=== PATIENT | male | born 1995 | race Caucasian/White ===

== ENCOUNTER 2017-09-09 00:30 | Emergency (ER) | payer BC, OTHER ==
[~2017-09-09] VITALS: Ht 180.3 cm; Wt 104.9 kg
[~2017-09-09 00:30] MED LIST: DOXY100C2 PO; HYDR-3419 PO
[2017-09-09 00:39] VITALS: TEMP 37; Ht 180.3 cm; Wt 104.9 kg
[2017-09-09] MEDS ORDERED: IBUPROFEN 600 MG TAB PO STA (00:51)
--- NOTE | 2017-09-09 01:38 | EMERGENCY ROOM VISIT NOTE ---
ED Visit Note First contact with patient: 00:47 CHIEF COMPLAINT: Wrist pain HISTORY OF PRESENT ILLNESS: This 21-year-old patient presents to the emergency department with family complaining of pain in the right wrist after opening a door and hearing a pop. The patient is able to move their wrist. The patient states the pain is mild and 3/10. No laceration, no weakness. No numbness or tingling. The patient denies any other injury. The patient is able to move their fingers and elbow without difficulty. The patient has not had a previous fracture to this wrist. The patient has taken nothing for the pain. Patient had prior surgery on his elbow and has had problems rotating his wrist for many years now. He follows with Dr. Nayak/Yunior. Patient states he did twist his wrist more than he has in quite sometime. REVIEW OF SYSTEMS: A 6 system review of systems was performed with positives and pertinent negatives in the HPI. ALLERGIES: None MEDICATIONS: None PMH: Orthopedic surgeries SOCIAL HISTORY: No drug use PHYSICAL EXAM: Vital Signs: Reviewed Nurse's notes, vital signs mildly hypertensive. GENERAL: Pleasant male, in no acute distress, but appears to be in pain, well-developed, well-neurished. NEURO: Alert and oriented to person place and time. Normal sensation to light and sharp touch. MUSCULOSKELETAL: There is no deformity of the right wrist. There is tenderness and edema over distal ulna. There is no snuff box tenderness. Range of motion is intact but painful. There is no tenderness of the elbow, hand or fingers. Arboriculturist strength 4/ 5. Radial pulse 2+. SKIN: Normal and intact. The hand is warm and well perfused with capillary refill less than 2 seconds. EMERGENCY DEPARTMENT COURSE: I examined the patient. An X-ray of the right wrist was reviewed by myself and my attending and showed no fracture but possible malalignment of the distal ulna and patient had prior fractures to this wrist and surgery. A cockup Velcro splint was placed under my direction and the position was satisfactory. Neurovascular status rechecked and intact. Patient was advised to follow-up with his orthopedic doctor in a few days or here in the ER sooner for severe pain, numbness, tingling, worsening signs or symptoms or as needed. The patient was discharged home in good condition. Differential diagnoses include sprain, strain, fracture, dislocation and other etiologies were considered. DIAGNOSIS: Right wrist injury DISCHARGE INSTRUCTIONS & TREATMENT: Your blood pressure was high today. Follow-up with family care for this. Ibuprofen(Motrin, Advil) may be used for fever or pain. Use 600mg every six hours as needed. Take with food. Avoid using more than 2400mg in a 24 hour period. Do not use 2400mg per day for more than three consecutive days without physician direction. Prolonged inappropriate use can lead to stomach upset or ulcers. This medication can be taken if you need to drive, work, or perform activities which may be dangerous when taking narcotic pain medication. (AND/OR) Acetaminophen(Tylenol) may be used for fever or pain. Use 1000mg every six hours as needed. Avoid using more than 3000mg in a 24 hour period. This medication can be taken if you need to drive, work, or perform activities which may be dangerous when taking narcotic pain medication. Ice compresses for 20 minutes at a time four times daily for 2-3 days. Rest and elevate your injury. Wear splint for comfort. Do not have it so tight that you cannot feel your fingers. Continue current medications. Return to the ER immediately for any numbness, tingling, severe pain, extreme swelling in the extremity or as needed. Call your Orthopedics on Sunday for your ongoing problems with your wrist to arrange follow up for your injury. Current/Historical Medications Scheduled Doxycycline Hyclate (Vibramycin), 100 MG PO BID Scheduled PRN Hydrocodon/Acetaminophen 5MG/300MG (Vicodin (5MG/300MG)), 1 TAB PO Q6 PRN Miscellaneous Medications None (Patient States No Home Meds) Allergies Coded Allergies: No Known Allergies (Unverified , 03/04/13) Vital Signs Date Time Temp Pulse Resp B/P (MAP) Pulse Ox O2 Delivery O2 Flow Rate FiO2 09/09/17 00:39 37.0 98 18 153/84 97 Room Air Medications Administered Medications (Trade) Dose Ordered Sig/Reuben Route Start Time Stop Time Status Last Admin Dose Admin Ibuprofen (Motrin Tab) 600 mg NOW STAT PO 09/09/17 00:51 09/09/17 00:53 DC 09/09/17 00:59 600 MG Departure Information Referrals Tim Davis MD (PCP) Patient Instructions [facility]
[2017-09-09] MEDS ORDERED: BUPRTAB51 PO (01:41)
[2017-09-09] MEDS ORDERED: AMPH10TA2 PO (01:42)
[2017-09-09] MEDS ORDERED: AMPH20TA2 PO (01:43)
[2017-09-09 01:47] VITALS: BP 151/88; PULSE 80; O2SAT 97
--- NOTE | 2017-09-09 08:17 | DIAGNOSTIC IMAGING REPORT ---
R WRIST MIN 3 VIEWS ROUTINE CLINICAL HISTORY: right wrist pain COMPARISON: None. DISCUSSION: No fractures or dislocations are visualized. The study is limited from a technical standpoint as the lateral views appear oblique. On one of the lateral views, the ulna projects dorsal to the distal radius. Clinical correlation will be necessary to exclude a distal radial ulnar subluxation IMPRESSION: 1. No acute fractures 2. Technically limited study from a positioning standpoint. On one of the lateral views, the ulna projects dorsal to the distal radius. Clinical correlation will be necessary to exclude a distal radial ulnar subluxation Electronically signed by: Raymon Zhu M.D. 09/09/2017 8:16 AM Dictated Date/Time: 09/09/2017 8:14 AM
[2017-12-24] MEDS ORDERED: NICO14DI5 TD (15:32)
[2017-12-24] MEDS ORDERED: ZYPODT5 PO (15:32)
[2017-12-24] MEDS ORDERED: [UNRECOGNIZED DRUG - CODE] PO (15:32)
== END 2017-09-09 01:48 | disposition home or self-care (01) ==
LOC: C.EDB 00:32
DX: S69.91XA Unspecified injury of right wrist, hand and finger(s), initial encounter (principal); X58.XXXA Exposure to other specified factors, initial encounter

== ENCOUNTER 2017-11-30 11:39 | Inpatient (IN) | payer BC ==
[~2017-11-30] VITALS: Ht 180.3 cm; Wt 89.9 kg
[~2017-11-30 11:39] MED LIST changes: +AMPH10TA2 PO; +AMPH20TA2 PO; +BUPRTAB51 PO; -DOXY100C2 PO; -HYDR-3419 PO
--- NOTE | 2017-11-30 13:05 | DIAGNOSTIC IMAGING REPORT ---
HEAD WITHOUT CONTRAST (CT) CLINICAL HISTORY: 22 years-old Male presenting with ams. TECHNIQUE: Multidetector CT imaging of the head was performed without the use of intravenous contrast. IV contrast: None. A dose lowering technique was used consistent with the principles of ALARA (as low as reasonably achievable). COMPARISON: None. CT DOSE (mGy.cm): The estimated cumulative dose is 537.48 mGy.cm. FINDINGS: Direct Customer Service Representative topogram: Unremarkable. Ventricles and sulci normal in size. Brain parenchyma normal in appearance with preserved brady-white differentiation. No mass effect or midline shift. No hemorrhage or acute territorial infarct. No extra-axial fluid collection. Paranasal sinuses and mastoid air cells clear. Calvarium intact. IMPRESSION: 1. No acute intracranial abnormality. Electronically signed by: Yuriy Camp M.D. 11/30/2017 1:03 PM Dictated Date/Time: 11/30/2017 1:01 PM
--- NOTE | 2017-11-30 13:16 | EMERGENCY ROOM VISIT NOTE ---
History Report prepared by Junior: Clotilde Arrieta Under the Supervision of: Dr. Brian Carrasco M.D. First contact with patient: 11:52 Chief Complaint: MENTAL HEALTH EVALUATION Stated Complaint: MENTAL EVALUATION History of Present Illness The patient is a 22 year old male who presents to the Emergency Room brought in by police with complaints of persistent general marge since this morning. The patient states that it is hard to put into words what has been going on. He states that he did not sleep all last night because he was studying for a [employer] test. He states that he did sleep well the night prior. He states that he confused the police and is unclear and is unable to definitively explain what caused him to come to the ED. He reports that he feels very good. He denies any thoughts of SI or HI. He notes auditory hallucinations. He notes there is ringing in his ears. He denies any visual hallucinations, though he states that he sees things differently than other people. He denies any nausea, vomiting, cough, congestion, chills, fevers, or diarrhea. He states that he smokes marijuana every day. He states that he smoked marijuana last night. He denies any alcohol use. He reports daily tobacco use. He denies any other illicit drug use. He regularly takes Adderall, though he has not taken it today. Per mother, the patient has been mildly depressed. She states that the patient started to self-diagnose himself with ADD about one year ago. She reports the patient was recreating his childhood and claiming that he did not have any friends. She notes that he had been doing well in school and has plenty of friends. She states the he tried to see as many psychiatrics in order to obtain drugs. She reports that he was then placed on Adderall in the spring. The mother believes the Adderall changed the patients demeanor. She states that her son became a totally different person and seemed angry, though he did take a summer course last year and was successful. 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 She notes he seemed to be well while there, though when he returned he became angrier. She states that he has not stopped taking the Adderall, even though he informed her that he would stop taking it prior to his epidemiology internship. She notes the patient decided to take a break from [employer] as a senior. The patient was recently evaluated at [facility], though he recently stopped going to school. The mother denies any family history of schizophrenia or bipolar disorder. Source of History: patient, parent Onset: since this morning Position: other (general) Quality: other (marge) Timing: other (persistent) Associated Symptoms: No fevers, No chills, No diarrhea Note: He notes loss of sleep. He notes auditory hallucinations and ringing in his ears. He denies any visual hallucinations SI or HI. He denies any congestion. Review of Systems See HPI for pertinent positives and negatives. A total of ten systems were reviewed and were otherwise negative. Past Medical & Surgical Medical Problems: (1) No Known Active Medical Problems Family History Cancer Diabetes mellitus Gallbladder disease Heart disease Hypertension Kidney stones Lung disease Seizures Social History Smoking Status: Current Every Day Smoker Alcohol Use: occasionally Drug Use: marijuana Marital Status: single Housing Status: lives with family Occupation Status: [employer] student Current/Historical Medications Scheduled Amphetamine-Dextroamphetamine 10MG (Adderall 10MG), 10 MG PO QAM Bupropion (Wellbutrin-Xl), 300 MG PO DAILY Allergies Coded Allergies: No Known Allergies (Unverified , 11/30/17) Physical Exam Vital Signs Date Time Temp Pulse Resp B/P (MAP) Pulse Ox O2 Delivery O2 Flow Rate FiO2 11/30/17 15:16 67 16 124/78 99 Room Air 11/30/17 13:04 78 18 148/85 98 Room Air 11/30/17 11:45 36.8 87 18 168/101 97 Room Air Physical Exam GENERAL: Awake, alert, confused, in no distress HENT: Normocephalic, atraumatic. Oropharynx unremarkable. EYES: Normal conjunctiva. Sclera non-icteric. NECK: Supple. No nuchal rigidity. FROM. No JVD. RESPIRATORY: Clear to auscultation. CARDIAC: Regular rate, normal rhythm. Extremities warm and well perfused. Pulses equal. ABDOMEN: Soft, non-distended. No tenderness to palpation. No rebound or guarding. No masses. RECTAL: Deferred. MUSCULOSKELETAL: Chest examination reveals no tenderness. The back is symmetrical on inspection without obvious abnormality. There is no CVA tenderness to palpation. No joint edema. LOWER EXTREMITIES: Calves are equal size bilaterally and non-tender. No edema. No discoloration. NEURO: Normal sensorium. No sensory or motor deficits noted. SKIN: No rash or jaundice noted. PSYCH: Incoherent speech, tangential thoughts. Denies SI or HI. Equivocal auditory and visual hallucinations. Medical Decision & Procedures ER Provider Diagnostic Interpretation: Radiology results as stated below per my review and radiologist interpretation: HEAD WITHOUT CONTRAST (CT) CLINICAL HISTORY: 22 years-old Male presenting with ams. TECHNIQUE: Multidetector CT imaging of the head was performed without the use of intravenous contrast. IV contrast: None. A dose lowering technique was used consistent with the principles of ALARA (as low as reasonably achievable). COMPARISON: None. CT DOSE (mGy.cm): The estimated cumulative dose is 537.48 mGy.cm. FINDINGS: Cellar Packer topogram: Unremarkable. Ventricles and sulci normal in size. Brain parenchyma normal in appearance with preserved brady-white differentiation. No mass effect or midline shift. No hemorrhage or acute territorial infarct. No extra-axial fluid collection. Paranasal sinuses and mastoid air cells clear. Calvarium intact. IMPRESSION: 1. No acute intracranial abnormality. Electronically signed by: Yuriy Camp M.D. 11/30/2017 1:03 PM Dictated Date/Time: 11/30/2017 1:01 PM Laboratory Results 11/30/17 13:08 Red Blood Count 5.29, Mean Corpuscular Volume 82.6, Mean Corpuscular Hemoglobin 30.1, Mean Corpuscular Hemoglobin Concent 36.4, Mean Platelet Volume 8.8, Neutrophils (%) (Auto) 73.7, Lymphocytes (%) (Auto) 17.4, Monocytes (%) (Auto) 8.1, Eosinophils (%) (Auto) 0.1, Basophils (%) (Auto) 0.3, Neutrophils # (Auto) 5.11, Lymphocytes # (Auto) 1.21, Monocytes # (Auto) 0.56, Eosinophils # (Auto) 0.01, Basophils # (Auto) 0.02 11/30/17 13:08 Test 11/30/17 12:19 11/30/17 12:20 11/30/17 13:08 Bedside Glucose 103 mg/dl (70-99) Urine Color YELLOW Urine Appearance CLEAR (CLEAR) Urine pH 7.5 (4.5-7.5) Urine Specific [place] 1.011 (1.000-1.030) Urine Protein NEG (NEG) Urine Glucose (UA) NEG (NEG) Urine Ketones 1+ (NEG) Urine Occult Blood NEG (NEG) Urine Nitrite NEG (NEG) Urine Bilirubin NEG (NEG) Urine Urobilinogen NEG (NEG) Urine Leukocyte Esterase NEG (NEG) Urine Opiates Screen NEG (NEG) Urine Methadone, Qualitative NEG (NEG) Urine Barbiturates NEG (NEG) Urine Phencyclidine (PCP) Level NEG (NEG) Ur Amphetamine/Methamphetamine NEG (NEG) MDMA (Ecstasy) Screen POS (NEG) Urine Benzodiazepines Screen NEG (NEG) Urine Cocaine Metabolite NEG (NEG) Urine Marijuana (THC) POS (NEG) White Blood Count 6.94 K/uL (4.8-10.8) Red Blood Count 5.29 M/uL (4.7-6.1) Hemoglobin 15.9 g/dL (14.0-18.0) Hematocrit 43.7 % (42-52) Mean Corpuscular Volume 82.6 fL (80-100) Mean Corpuscular Hemoglobin 30.1 pg (25-34) Mean Corpuscular Hemoglobin Concent 36.4 g/dl (32-36) Platelet Count 255 K/uL (130-400) Mean Platelet Volume 8.8 fL (7.4-10.4) Neutrophils (%) (Auto) 73.7 % Lymphocytes (%) (Auto) 17.4 % Monocytes (%) (Auto) 8.1 % Eosinophils (%) (Auto) 0.1 % Basophils (%) (Auto) 0.3 % Neutrophils # (Auto) 5.11 K/uL (1.4-6.5) Lymphocytes # (Auto) 1.21 K/uL (1.2-3.4) Monocytes # (Auto) 0.56 K/uL (0.11-0.59) Eosinophils # (Auto) 0.01 K/uL (0-0.5) Basophils # (Auto) 0.02 K/uL (0-0.2) RDW Standard Deviation 37.7 fL (36.4-46.3) RDW Coefficient of Variation 12.6 % (11.5-14.5) Immature Granulocyte % (Auto) 0.4 % Immature Granulocyte # (Auto) 0.03 K/uL (0.00-0.02) Anion Gap 9.0 mmol/L (3-11) Est Creatinine Clear Calc Drug Dose 136.2 ml/min Estimated GFR () 123.3 Estimated GFR (Non- 106.4 BUN/Creatinine Ratio 6.8 (10-20) Calcium Level 9.5 mg/dl (8.5-10.1) Total Bilirubin 0.5 mg/dl (0.2-1) Direct Bilirubin 0.1 mg/dl (0-0.2) Aspartate Amino Transf (AST/SGOT) 16 U/L (15-37) Alanine Aminotransferase (ALT/SGPT) 25 U/L (12-78) Alkaline Phosphatase 57 U/L (45-117) Total Protein 8.0 gm/dl (6.4-8.2) Albumin 4.8 gm/dl (3.4-5.0) Globulin 3.2 gm/dl (2.5-4.0) Albumin/Globulin Ratio 1.5 (0.9-2) Thyroid Stimulating Hormone (TSH) 0.745 uIu/ml (0.300-4.500) Ethyl Alcohol mg/dL < 3.0 mg/dl (0-3) Laboratory results reviewed by me ECG Per My Interpretation Indication: other (marge) Rate (beats per minute): 78 Rhythm: normal sinus Findings: no acute ischemic change, other (Normal axis) ED Course 1155: The patient was evaluated in room A6. A complete history and physical exam was performed. 1531: I spoke with Mora, Psychiatric Financial Director. She is requesting a synthetic laboratory workup. 1600: The patient was accepted to [facility]. Medical Decision I reviewed the patient's past medical history, medications, and the nursing notes as described above. Differential diagnosis: Etiologies such as mood disorder, infection, hypoglycemia, electrolyte abnormalities, cardiac sources, intracerebral event, toxicologic, neurologic, as well as others were entertained. The patient is a 22 y/o gentleman with a ?PMHX of ADHD on adderall who presents to the emergency department with worsening confusion and bizarre behavior that culminated today when taking a test at [facility] per HPI. On arrival the patient is cooperative in NAD, AFVSS. On exam the patient exhibits incoherent speech where he is unable to complete an idea. Denies SI/HI but is equivocal when ask if he has auditory or visual hallucinations. Per patient and mother the patient has no prior episodes like this in the past although he has had evolving sx over the past several weeks. The patient reports smoking marijuana regularly but denies any other drug use. Labs unremarkable. CT head negative. Patient medically cleared. I explained our concern to the patient that is confusion is so severe that I am concerned for his ability to safely function. Patient is agreeable for voluntary admission. 201 signed. Patient admitted to for further evaluation and management of apparent new onset marge. Medication Reconcilliation Current Medication List: was personally reviewed by me Blood Pressure Screening Patient's blood pressure: Elevated blood pressure Blood pressure disposition: Elevated BP felt to be situational Impression Primary Impression: Marge Scribe Attestation The scribe's documentation has been prepared under my direction and personally reviewed by me in its entirety. I confirm that the note above accurately reflects all work, treatment, procedures, and medical decision making performed by me. Departure Information Dispostion [facility] Acute Care ([facility]) Referrals No Doctor, Assigned (PCP) Patient Instructions [facility]
[2017-11-30 13:22] LABS: BASO % 0.3 %; BASO ABS # 0.02 K/uL (0-0.2); EOS % 0.1 %; EOS ABS # 0.01 K/uL (0-0.5); HEMATOCRIT 43.7 % (42-52); HEMOGLOBIN 15.9 g/dL (14.0-18.0); IG# 0.03 K/uL (0.00-0.02); LYMPH % 17.4 %; LYMPH ABS # 1.21 K/uL (1.2-3.4); MEAN CELL VOLUME 82.6 fL (80-100); MEAN CORPUSCULAR HEMOGLOBIN 30.1 pg (25-34); MEAN CORPUSCULAR HGB CONC 36.4 g/dl (32-36); MEAN PLATELET VOLUME 8.8 fL (7.4-10.4); MONO % 8.1 %; MONO ABS # 0.56 K/uL (0.11-0.59); NEUT % 73.7 %; NEUT ABS # 5.11 K/uL (1.4-6.5); PLATELET COUNT 255 K/uL (130-400); RED CELL DISTRIBUTION WIDTH CV 12.6 % (11.5-14.5); RED CELL DISTRIBUTION WIDTH SD 37.7 fL (36.4-46.3); WHITE BLOOD COUNT 6.94 K/uL (4.8-10.8)
[2017-11-30 13:40] LABS: ALBUMIN 4.8 gm/dl (3.4-5.0); CALCIUM 9.5 mg/dl (8.5-10.1); POTASSIUM 3.5 mmol/L (3.5-5.1)
[2017-11-30 15:45] VITALS: O2SAT 99
[2017-11-30 16:12] VITALS: BP 124/78; PULSE 67; TEMP 36.8; BMI 29.1
[2017-11-30] MEDS ORDERED: ALUMINUM/MAGNESIUM SUSP 30 ML UDC PO PRN (16:15)
[2017-11-30] MEDS ORDERED: hydrOXYzine HCL 25 MG TAB PO PRN ×2 (16:15)
[2017-11-30] MEDS ORDERED: BISMUTH SUBSALICYLATE PER ML OMNICELL CHARGE PO PRN (16:15)
[2017-11-30] MEDS ORDERED: SODIUM CHLORIDE 0.65% NA SOLN 45 ML (OCEAN) PRN (16:15)
[2017-11-30] MEDS ORDERED: MAGNESIUM HYDROXIDE SUSP 30 ML UDC PO PRN (16:15)
[2017-11-30] MEDS ORDERED: ACETAMINOPHEN 325 MG TAB PO PRN (16:15)
[2017-11-30] MEDS: NICOTINE 14 MG/24 HR TDSY TD SCH (17:00)
[2017-11-30] MEDS ORDERED: HALOPERIDOL 5 MG TAB PO PRN (18:15)
[2017-11-30] MEDS ORDERED: BENZTROPINE MESYLATE 0.5 MG TAB PO PRN (18:15)
[2017-11-30] MEDS ORDERED: RISPERIDONE 1 MG TAB PO ONE (22:00)
[2017-12-01 06:55] VITALS: BP_SYST 114; BP_SYST 137; BP_DIAS 64; BP_DIAS 81; PULSE 49; PULSE 52; TEMP 36.5
[2017-12-01 06:57] VITALS: Ht 180.3 cm; Wt 89.9 kg
[2017-12-01] MEDS: NICOTINE 14 MG/24 HR TDSY TD SCH (08:49)
--- NOTE | 2017-12-01 11:32 | Psychiatric Consultation ---
Consultation Date of Consultation Dec 01, 2017. Identifying Data Patient is a 22 year old white male admitted on a 201 voluntary commitment for psychiatric evaluation and treatment of acute onset citlalli, mental confusion and hallucinations. Chief Complaint I guess I was manic, I know I was manic". History of Present Illness Patient is a 22 year old white male admitted on a 201 voluntary commitment from the ED after an acute onset of citlalli, mental confusion and auditory hallucinations with complaints of ringing in the ears x several hours. Patient reports that prior to admission he had not slept for 24 hours and was feeling anxious and manic about taking a test at on Sunday11/30/17 at [facility]. When he arrived at the site, his anxiety escalated when he realized the site was at a local school. He reports feeling panicky and found a transit police officer on site. He was then transported cooperatively to the ED. He denies being under the influence of drugs or Alcohol at the time of admission. He states he last used his Adderall 10 mg x 1 was on 11/29/16. The patient reports prior to admission having depression and anxiety since childhood but never sought treatment until he recently saw [facility] and also [facility] for OP treatment. He states having intermittent prior episodes of citlalli in the past but mainly experiences feelings of anger and irritability that manifests as sarcasm and arrogance especially with regards to interpersonal relationships and mainly his parents. Prior to admission, he denied feelings of anhedonia, anergia or being down, depressed or hopeless but admits to feeling manic, racing thoughts - questioning himself repeatedly and ruminating about decisions. He states he began to feel paranoid and untrusting of his own decision making skills. 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 . He denies visual hallucinations. He also reports daily chronic feelings of being anxious, restless and on edge. He reports feeling pressure from his parents to do well which aggravates his symptoms of anger. He admits to past fleeting passive suicidal ideation when under pressure from his parents but denies plan or intent. Currently, he denies SI/HI plan or intent but admits to short lived trial of SIB in the 8th grade when running around a group of kids who did it. He reports self diagnosis of ADD and admits to using his Adderall prescription inappropriately approximately 1.5 - 2 weeks prior to admission taking 30 mg a day. He states he typically would 10 mg a day but when having projects due he would use 10 mg in am and 20 mg in pm. He admits to "bad issues " with alcohol in high school reporting that he drank a lot to try to calm down his anger but realized it only made him angrier. Currently he admits to drinking a beer every on occasion and not often. He admits to chronic 3x/day cannabis use reporting this really helps to calm him and aids in anger control. Past Psychiatric History Current OP Treatment: psychiatrist, therapist Prior Psych Hospitalizations: none Access to a Gun: No Suicide Attempts: No Past Medical/Surgical History History of Concussion/Seizure: No Allergies Allergies: Coded Allergies: No Known Allergies (Unverified , 11/30/17) Home Medications Scheduled Amphetamine-Dextroamphetamine 10MG (Adderall 10MG), 10 MG PO QAM Bupropion (Wellbutrin-Xl), 300 MG PO DAILY Family History Cancer Diabetes mellitus Gallbladder disease Heart disease Hypertension Kidney stones Lung disease Seizures History of Suicide: No History of Substance Abuse: No Psychiatric History: No Alcohol Use Alcohol Use In Past 12 Months: Yes (one beer rarely) Smoking Use Smoking Status: Current Every Day Smoker Substance History Cannabis use 3x a day Personal History Lives in: [place], [place] Education: started college ([employer] senior - withdrew 11/04) Work History: none Relationship History: never Legal History: none Psychological Trauma History: Denies Hx Traumatic Event Review of Systems Psych: denies symptoms other than stated above Constitutional: denied Cardiovascular: denied GI: denied Neurologic: denied Remainder of 10 body systems also reviewed and denied other than noted above. Examination Vital Signs Vital Signs Past 12 Hours Date Time Temp Pulse Resp B/P (MAP) Pulse Ox O2 Delivery O2 Flow Rate FiO2 12/01/17 06:55 36.5 49 16 114/64 52 137/81 Laboratory Results Last 24 Hours Test 11/30/17 12:19 11/30/17 12:20 11/30/17 13:08 Bedside Glucose 103 mg/dl Urine Color YELLOW Urine Appearance CLEAR Urine pH 7.5 Urine Specific [place] 1.011 Urine Protein NEG Urine Glucose (UA) NEG Urine Ketones 1+ Urine Occult Blood NEG Urine Nitrite NEG Urine Bilirubin NEG Urine Urobilinogen NEG Urine Leukocyte Esterase NEG Urine Opiates Screen NEG Urine Methadone, Qualitative NEG Urine Barbiturates NEG Urine Phencyclidine (PCP) Level NEG Ur Amphetamine/Methamphetamine NEG MDMA (Ecstasy) Screen POS Urine Benzodiazepines Screen NEG Urine Cocaine Metabolite NEG Urine Marijuana (THC) POS White Blood Count 6.94 K/uL Red Blood Count 5.29 M/uL Hemoglobin 15.9 g/dL Hematocrit 43.7 % Mean Corpuscular Volume 82.6 fL Mean Corpuscular Hemoglobin 30.1 pg Mean Corpuscular Hemoglobin Concent 36.4 g/dl Platelet Count 255 K/uL Mean Platelet Volume 8.8 fL Neutrophils (%) (Auto) 73.7 % Lymphocytes (%) (Auto) 17.4 % Monocytes (%) (Auto) 8.1 % Eosinophils (%) (Auto) 0.1 % Basophils (%) (Auto) 0.3 % Neutrophils # (Auto) 5.11 K/uL Lymphocytes # (Auto) 1.21 K/uL Monocytes # (Auto) 0.56 K/uL Eosinophils # (Auto) 0.01 K/uL Basophils # (Auto) 0.02 K/uL RDW Standard Deviation 37.7 fL RDW Coefficient of Variation 12.6 % Immature Granulocyte % (Auto) 0.4 % Immature Granulocyte # (Auto) 0.03 K/uL Sodium Level 138 mmol/L Potassium Level 3.5 mmol/L Chloride Level 106 mmol/L Carbon Dioxide Level 23 mmol/L Anion Gap 9.0 mmol/L Blood Urea Nitrogen 7 mg/dl Creatinine 1.00 mg/dl Est Creatinine Clear Calc Drug Dose 136.2 ml/min Estimated GFR () 123.3 Estimated GFR (Non- 106.4 BUN/Creatinine Ratio 6.8 Random Glucose 91 mg/dl Calcium Level 9.5 mg/dl Total Bilirubin 0.5 mg/dl Direct Bilirubin 0.1 mg/dl Aspartate Amino Transf (AST/SGOT) 16 U/L Alanine Aminotransferase (ALT/SGPT) 25 U/L Alkaline Phosphatase 57 U/L Total Protein 8.0 gm/dl Albumin 4.8 gm/dl Globulin 3.2 gm/dl Albumin/Globulin Ratio 1.5 Thyroid Stimulating Hormone (TSH) 0.745 uIu/ml Ethyl Alcohol mg/dL < 3.0 mg/dl Mental Examination During interview pt is: alert and oriented, cooperative Appearance: appropriately dressed, appropriately groomed Eye contact is: good Motor behavior is: steady gait & station Speech: normal in rate, rhythm & volume Affect: anxious Mood is: anxious, other (heightened) Thought process: clear, coherent Thought content: reality based without delusions Suicidal thought are: denied, Plan: denied, Intent: denied Homicidal thoughts are: denied, Plan: denied, Intent: denied Hallucinations: denies auditory, denies visual Cognition: memory grossly intact, attention grossly intact, language grossly intact Intelligence estimated to be: consistent with level of education Insight: limited Judgement: limited Impression / Recommendations Impression The patient is a 22 year old male admitted on a 201 voluntary commitment from the ED after presenting with symptoms of citlalli, auditory hallucinations and mental confusion. The patient has a reported history of ADD and Depression and has been under the care of a therapist and a psychiatrist who prescribes him Wellbutrin and Adderall. The patient reports history of alcohol misuse high school and more recently he admits to taking more stimulants than typical prior to admission. Inventory Assets Strengths: smart and quick thinker Needs: future goal direction, family support,income Risk Factors Assessment Male: Yes /single/: No Higher / Fall in social status: No Access to guns: No Mental Health Diagnoses: Yes (Treated as OP for ADD and Depression) Substance use disorders: No Previous attempt: No Previous psychiatric stay: No Hopelessness: No Smoker: Yes Protective Factors Assessment Advent beliefs: No : No Responsible for young children: No Employed: No Stable relationships: No Supportive family: No Good rapport with provider: Yes Absence of risk factors above: No Recommendations (1) Citlalli 12/01/17 - Bipolar 1 Disorder single episode manic with psychotic features - Mood stabilizer is indicated. Risperdal 1mg at HS. Discussed with the patient the risks/benefits/alternative treatments were reviewed re: Risperdal for mood and/or psychosis. Discussion included but was not limited to metabolic side effects, risks of TD and suicidal thoughts. Baseline AIMS=0. Baseline metabolic labs were ordered. - Hold Adderall and Wellbutrin - encourage group therapy participation targeting coping mechanisms for stress and issues with alcohol, cannabis and stimulant misuse - recommend as OP Quotient testing for definitive ADHD diagnosis - meet with licensed master social worker for safety plan discussion - family meeting encouraged (2) Cannabis abuse - Advise patient to discontinue use - Encourage group participation to help patient learn other ways to cope with stress.
--- NOTE | 2017-12-01 12:30 | Psychiatric History & Physical ---
History Date of Service Dec 01, 2017. Identifying Data Patient is a 22 year old white male admitted on 11/30/17 on a 201 voluntary commitment for psychiatric evaluation and treatment of acute onset marge, mental confusion and hallucinations. Chief Complaint "It was amazing that I could mentally configure all that". History of Present Illness Per JAE Banks-- The patient reports that prior to admission he had not slept for 24 hours and was feeling anxious and manic about taking a test at on Sunday11/30/17 at [facility]. When he arrived at the site, his anxiety escalated when he realized the site was at a local school. He reports feeling panicky and found a program officer on site. He was then transported cooperatively to the ED. He denies being under the influence of drugs or Alcohol at the time of admission. He states he last used his Adderall 10 mg x 1 was on . The patient reports prior to admission having depression and anxiety since childhood but never sought treatment until he recently saw [facility] and also [facility] for OP treatment. He states having intermittent prior episodes of marge in the past but mainly experiences feelings of anger and irritability that manifests as sarcasm and arrogance especially with regards to interpersonal relationships and mainly his parents. Prior to admission, he denied feelings of anhedonia, anergia or being down, depressed or hopeless but admits to feeling manic, racing thoughts - questioning himself repeatedly and ruminating about decisions. He states he began to feel paranoid and untrusting of his own decision making skills. 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 . He denies visual hallucinations. He also reports daily chronic feelings of being anxious, restless and on edge. He reports feeling pressure from his parents to do well which aggravates his symptoms of anger. He admits to past fleeting passive suicidal ideation when under pressure from his parents but denies plan or intent. Currently, he denies SI/HI plan or intent but admits to short lived trial of SIB in the 8th grade when running around a group of kids who did it. He reports self diagnosis of ADD and admits to using his Adderall prescription inappropriately approximately 1.5 - 2 weeks prior to admission taking 30 mg a day. He states he typically would 10 mg a day but when having projects due he would use 10 mg in am and 20 mg in pm. He admits to "bad issues " with alcohol in high school reporting that he drank a lot to try to calm down his anger but realized it only made him angrier. Currently he admits to drinking a beer every on occasion and not often. He admits to chronic 3x/day cannabis use reporting this really helps to calm him and aids in anger control. The patient received and tolerated 1 dose of Risperdal last night. He states he feels his thoughts are more organized today and he thinks his mood is " coming down" in that previously he felt everything was "getting better and better" and even his handwriting was becoming perfect. He doesn't have much recollection of what happened at [facility] and doesn't relate in any way to his use of MJ. Past Psychiatric History Current OP Treatment: psychiatrist (Dr. Reece Escobar 01/01 to present, last appt 11/03), therapist (at [facility] until he withdrew from [facility] Prior OP Treatment: no prior treatment Prior Psych Hospitalizations: none Access to a Gun: No Suicide Attempts: No Past Medical/Surgical History History of Concussion/Seizure: No Allergies Allergies: Coded Allergies: No Known Allergies (Unverified , 11/30/17) Home Medications Scheduled Amphetamine-Dextroamphetamine 10MG (Adderall 10MG), 10 MG PO QAM Bupropion (Wellbutrin-Xl), 300 MG PO DAILY Family History Cancer Diabetes mellitus Gallbladder disease Heart disease Hypertension Kidney stones Lung disease Seizures History of Suicide: No History of Substance Abuse: No Psychiatric History: No Alcohol Use Alcohol Use In Past 12 Months: Yes (one beer rarely) AUDIT Total Score: 0 Smoking Use Smoking Status: Current Every Day Smoker Substance History regular MJ, denies abuse of Adderall but admitted to taking up to 30 mg daily ( more than prescribed) occasionally if has a lot of studying to do. Personal History Lives in: [place], [place] Childhood: older brother, younger sister Education: started college ([employer] senior - withdrew 11/04) Relationship History: never Children: noned Legal History: none Psychological Trauma History: Denies Hx Traumatic Event Review of Systems Psych: denies symptoms other than stated above Constitutional: denied Cardiovascular: denied GI: denied Neurologic: denied Remainder of 10 body systems also reviewed and denied other than noted above. Examination Physical Examination A physical exam was performed in the ER prior to admission to the unit by Dr. Carrasco. I accept that physical as correct/medical clearance for the inpatient physical exam. Vital Signs Vital Signs Past 12 Hours Date Time Temp Pulse Resp B/P (MAP) Pulse Ox O2 Delivery O2 Flow Rate FiO2 12/01/17 06:55 36.5 49 16 114/64 52 137/81 Laboratory Results Last 24 Hours Test 11/30/17 12:19 11/30/17 12:20 11/30/17 13:08 Bedside Glucose 103 mg/dl Urine Color YELLOW Urine Appearance CLEAR Urine pH 7.5 Urine Specific [place] 1.011 Urine Protein NEG Urine Glucose (UA) NEG Urine Ketones 1+ Urine Occult Blood NEG Urine Nitrite NEG Urine Bilirubin NEG Urine Urobilinogen NEG Urine Leukocyte Esterase NEG Urine Opiates Screen NEG Urine Methadone, Qualitative NEG Urine Barbiturates NEG Urine Phencyclidine (PCP) Level NEG Ur Amphetamine/Methamphetamine NEG MDMA (Ecstasy) Screen POS Urine Benzodiazepines Screen NEG Urine Cocaine Metabolite NEG Urine Marijuana (THC) POS White Blood Count 6.94 K/uL Red Blood Count 5.29 M/uL Hemoglobin 15.9 g/dL Hematocrit 43.7 % Mean Corpuscular Volume 82.6 fL Mean Corpuscular Hemoglobin 30.1 pg Mean Corpuscular Hemoglobin Concent 36.4 g/dl Platelet Count 255 K/uL Mean Platelet Volume 8.8 fL Neutrophils (%) (Auto) 73.7 % Lymphocytes (%) (Auto) 17.4 % Monocytes (%) (Auto) 8.1 % Eosinophils (%) (Auto) 0.1 % Basophils (%) (Auto) 0.3 % Neutrophils # (Auto) 5.11 K/uL Lymphocytes # (Auto) 1.21 K/uL Monocytes # (Auto) 0.56 K/uL Eosinophils # (Auto) 0.01 K/uL Basophils # (Auto) 0.02 K/uL RDW Standard Deviation 37.7 fL RDW Coefficient of Variation 12.6 % Immature Granulocyte % (Auto) 0.4 % Immature Granulocyte # (Auto) 0.03 K/uL Sodium Level 138 mmol/L Potassium Level 3.5 mmol/L Chloride Level 106 mmol/L Carbon Dioxide Level 23 mmol/L Anion Gap 9.0 mmol/L Blood Urea Nitrogen 7 mg/dl Creatinine 1.00 mg/dl Est Creatinine Clear Calc Drug Dose 136.2 ml/min Estimated GFR () 123.3 Estimated GFR (Non- 106.4 BUN/Creatinine Ratio 6.8 Random Glucose 91 mg/dl Calcium Level 9.5 mg/dl Total Bilirubin 0.5 mg/dl Direct Bilirubin 0.1 mg/dl Aspartate Amino Transf (AST/SGOT) 16 U/L Alanine Aminotransferase (ALT/SGPT) 25 U/L Alkaline Phosphatase 57 U/L Total Protein 8.0 gm/dl Albumin 4.8 gm/dl Globulin 3.2 gm/dl Albumin/Globulin Ratio 1.5 Thyroid Stimulating Hormone (TSH) 0.745 uIu/ml Ethyl Alcohol mg/dL < 3.0 mg/dl Mental Examination During interview pt is: alert and oriented, cooperative Appearance: appropriately dressed, appropriately groomed Eye contact is: good Motor behavior is: steady gait & station Speech: other (hyperverbal) Affect: mood congruent Mood is: other (elevated) Thought process: circumstantial Thought content: reality based without delusions Suicidal thought are: denied, Plan: denied, Intent: denied Homicidal thoughts are: denied, Plan: denied, Intent: denied Hallucinations: denies auditory, denies visual Cognition: memory grossly intact, language grossly intact, other (decreased attention) Intelligence estimated to be: consistent with level of education Insight: limited Judgement: limited Impression / Recommendations Impression The patient is a 22 year old male admitted on a 201 voluntary commitment from the ED for 1 week of manic symptoms with thought disorganization and grandiosity. Patient tested negative for amphetmines and denies abuse of Adderall. He describes past periods of irritability associated with decreased sleep. He uses MJ regularly. Wellbutrin and Adderall were held on admission. Inventory Assets Strengths: smart and quick thinker Needs: future goal direction, family support,income Risk Factors Assessment Male: Yes /single/: No Higher / Fall in social status: No Access to guns: No Mental Health Diagnoses: Yes Substance use disorders: No Previous attempt: No Previous psychiatric stay: No Hopelessness: No Smoker: Yes Protective Factors Assessment Worship beliefs: No : No Responsible for young children: No Employed: No Stable relationships: No Supportive family: No Good rapport with provider: Yes Absence of risk factors above: No Recommendations (1) Marge As per JAE Banks---12/01/17 - Bipolar 1 Disorder single episode manic with psychotic features - Mood stabilizer is indicated. Risperdal 1mg at HS. Discussed with the patient the risks/benefits/alternative treatments were reviewed re: Risperdal for mood and/or psychosis. Discussion included but was not limited to metabolic side effects, risks of TD and suicidal thoughts. Baseline AIMS=0. Baseline metabolic labs were ordered. - Hold Adderall and Wellbutrin - encourage group therapy participation targeting coping mechanisms for stress and issues with alcohol, cannabis and stimulant misuse - recommend as OP Quotient testing for definitive ADHD diagnosis - meet with director social service for safety plan discussion - family meeting encouraged -suspect stimulant misuse, will engage family to help with pill counts and check against last fill per PDMP. (2) Cannabis abuse - Advise patient to discontinue use - Encourage group participation to help patient learn other ways to cope with stress. Dr. South attempted 5+ min brief intervention on 12/01/17. He remains in precontemplation stage with regards to change. Impact of use on mood disorder reviewed. He is agreeable to resume outpatient therapy to address mood disorder and use. (3) Nicotine abuse The patient is a current smoker but does not want to quit and declines brief intervention for tobacco cessation. Accepted nicotine replacement patch. CPT Code Initial Hospital Care: [id number]
[2017-12-01] MEDS ORDERED: LORAZEPAM 2 MG TAB ONE (21:13)
[2017-12-01] MEDS ORDERED: NURSING VERBAL MED ORDER ONE (21:15)
[2017-12-01] MEDS ORDERED: HALOPERIDOL 5 MG TAB PO STA (21:19)
[2017-12-01] MEDS ORDERED: RISPERIDONE 1 MG TAB PO SCH (22:00)
[2017-12-02 06:52] VITALS: BP_SYST 128; BP_SYST 143; BP_DIAS 73; BP_DIAS 77; PULSE 58; PULSE 73; TEMP 36.9
[2017-12-02] MEDS: NICOTINE 14 MG/24 HR TDSY TD SCH (10:15)
[2017-12-02] MEDS: RISPERIDONE ODT 1MG PO SCH ×2 (10:15→21:02)
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
[2017-12-03 06:51] VITALS: BP_SYST 127; BP_SYST 137; BP_DIAS 70; BP_DIAS 77; PULSE 112; PULSE 59; TEMP 36.9
[2017-12-03] MEDS: NICOTINE 14 MG/24 HR TDSY TD SCH (09:15)
[2017-12-03] MEDS: RISPERIDONE ODT 1MG PO SCH ×2 (09:16→21:59)
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
--- NOTE | 2017-12-03 11:06 | Psychiatric Progress Notes ---
Progress Note Date of Service Dec 03, 2017. Interval History Patient is a 22 year old white male admitted on 11/30/17 on a 201 voluntary commitment for psychiatric evaluation and treatment of acute onset marge. He had not slept in preparation to take the [employer] computerized test but was noted to be disorganized at [facility] so police were notified according to safety protocol. Chief Complaint "I guess I was just acting kind of strange, I was getting confused, my computer was kind of messing with me ". Subjective Patient was seen & assessed interval progress reviewed with Treatment Team. Staff report the patient has been disorganized in his behavior, taking other patient's food and drinks, and going into a female peer's room. He has been taking risperidone as ordered, and received a 0.5 mg dose of benztropine yesterday for restlessness, which was helpful. He utilized the safe room yesterday due to erratic behavior and disorganization, and was responsive to staff redirection. He had a good visit with his siblings and father. He attended community meeting yesterday, stated his mood was a 9 out of 10 and his mood was "interconnected." He said his goal of treatment was to help his father more. On my assessment today, the patient states that he has racing thoughts, and describes his mood is "pretty wavy, it was great the first morning..." He will start to answer questions with related information, but quickly goes off topic. He is able to state that he was hospitalized for bizarre behavior, which he relates to noticing that his computer was "messing with me." He says he noticed his computer was "showing different information, bringing up results I wouldn't have expected, webpages I had visited did not look the same." He states that this is "kind of sweet, scary, but very interesting. Computers take us from reality, and bring us back to it." He thinks that someone put spyware on his computer and was logging his activity " to help me see from a different perspective, so I would not be so shortsighted. " He is not sure who would go to these lengths to teach him a lesson, stating "there is a lot of people who could be behind it, it is too big for me to comprehend." He says that he ended up staying up all night just prior to admission as he was involved with his computer, and says he was scheduled to take a test the next day, saying he "scheduled this test to get people off my back, then got distracted with my computer, ended up staying up all night, I knew I needed to do something but did not know why but just knew it was something they needed to do." When asked to clarify this, he says that he "needed to bust my brother, scare him maybe, take care of him may be, watch over him or something." He says he went to his brother's room and open a box of broad head arrow tips, and relates this to a, and his brother made that it would be a good place to high drugs. He found a cylindrical vial of a wax substance, which he said "looks like an ass hole, it was supposed to represent cocaine in this scenario." He says he took the vial and put it in his pocket, and then "intentionally flagged down an officer, but did not know what to tell him, because I did not want to get my brother in trouble." He says he was trying to explain this to the officer, who became confused, alerted other officers, and ultimately the police brought him to the emergency room. He says that he thinks his diagnosis is "some type of Asperger's, do not think I am OCD , probably just depression." We discussed his current diagnosis of a manic episode, and gave him a handout about bipolar disorder. He is not sure that he has bipolar, as "my aunt I think said it is overdiagnosed." He does feel that his medications are helping him, and feels safe here in the hospital. He denies suicidal thoughts and thoughts of harming others. He continues to believe that other people are connected to him in unusual ways even here in the hospital, stating that a male peer on the unit is "reflecting my feelings, acting the way he thinks I feel, I look at him and it helps me see how I feel, so that has been helpful." He states that he found a tab of LSD in his jeans pocket on Sunday, and thinks that somebody "planted it there," which he says is scary. He says he gave it to his mother, because "I can trust her, she is discrete." Sleep Information Total Hours of Sleep: 7.75 Meal Information Percent of Breakfast Consumed: 100 Percent of Lunch Consumed: 100 Percent of Dinner Consumed: 100 Mental Status Exam During interview pt is: alert and oriented, cooperative Appearance: appropriately dressed, appropriately groomed Eye contact is: good Motor behavior is: steady gait & station, other (Mild restlessness, shifting in his chair frequently) Speech: other (hyperverbal, rapid rate) Affect: mood congruent, other (Expansive) Mood is: other ("Pretty wavy, it was great the first morning") Thought process: tangential, flight of ideas, looseness of associations Thought content: cognitive distortions, delusions, ideas of reference Suicidal thought are: denied Homicidal thoughts are: denied Hallucinations: denies auditory, denies visual Cognition: language grossly intact, other (impaired attention and memory) Intelligence estimated to be: consistent with level of education Insight: impaired Judgement: impaired Impression The patient is a 22 year old male admitted on a 201 voluntary commitment from the ED for 1 week of manic symptoms with thought disorganization and grandiosity. Patient tested negative for amphetamines Adderall, although it is prescribed by his outpatient psychiatrist for ADHD, and reports taking higher doses than prescribed to study at times. He uses MJ regularly, and has used LSD and cocaine in the past couple of months, exact timeline uncertain. Wellbutrin and Adderall were held on admission. He has been started on risperidone and placed in a private room due to intrusive behavior with peers. He requires inpatient treatment due to the severity of his manic and psychotic symptoms and inability to care for himself outside of the hospital. Plan (1) Bipolar 1 disorder As per JAE Banks---12/01/17 - Bipolar 1 Disorder single episode manic with psychotic features - Mood stabilizer is indicated. Risperdal 1mg at HS. Discussed with the patient the risks/benefits/alternative treatments were reviewed re: Risperdal for mood and/or psychosis. Discussion included but was not limited to metabolic side effects, risks of TD and suicidal thoughts. Baseline AIMS=0. Baseline metabolic labs were ordered. - Hold Adderall and Wellbutrin - encourage group therapy participation targeting coping mechanisms for stress and issues with alcohol, cannabis and stimulant misuse - recommend as OP Quotient testing for definitive ADHD diagnosis - meet with family welfare social work professor for safety plan discussion - family meeting encouraged -suspect stimulant misuse, will engage family to help with pill counts and check against last fill per PDMP. 12/02--increase Risperdal to 1 mg BID this am, prn Haldol and Ativan as ordered. Consider 302 if escalates again. 12/03--continue risperidone 1 mg twice daily, and add a 1 mg as needed dose for psychosis/marge. --Fasting lipid profile and glucose performed yesterday, results reviewed and all were within normal limits. --Schedule family meeting once patient is more reality based and able to tolerate it. --Coordinate care with outpatient psychiatrist, Dr. Newell. Wellbutrin and Adderall discontinued on admission. --Educated the patient about the diagnosis of bipolar disorder type I, and gave him an up-to-date patient handout about bipolar disorder. (2) Cannabis abuse - Advise patient to discontinue use - Encourage group participation to help patient learn other ways to cope with stress. Dr. South attempted 5+ min brief intervention on 12/01/17. He remains in precontemplation stage with regards to change. Impact of use on mood disorder reviewed. He is agreeable to resume outpatient therapy to address mood disorder and use. 12/03--continue to educate on the risks of continued substance abuse and recommendations for abstinence. Re-refer to [facility] counseling for substance abuse treatment. (3) Nicotine abuse The patient is a current smoker but does not want to quit and declines brief intervention for tobacco cessation. Accepted nicotine replacement patch. Discharge / Aftercare Planning Primary Care Physician: Name: Leeann Davis Appointment Notes: [address], [place] [address] Psychiatrist: Name: [facility] - Dr. Newell Appointment Notes: [address], [address], [place] [address] Therapist: Name: Daniel (saw previously) Nipple Threader: Name: None Visit Code E&M Code: 92322 Inventory Assets Strengths: smart and quick thinker Needs: future goal direction, family support,income Risk Factors Assessment Male: Yes /single/: No Higher / Fall in social status: No Mental Health Diagnoses: Yes Substance use disorders: No Previous attempt: No Previous psychiatric stay: No Hopelessness: No Smoker: Yes Protective Factors Assessment Confucianism beliefs: No : No Responsible for young children: No Employed: No Stable relationships: No Supportive family: No Good rapport with provider: Yes Absence of risk factors above: No Data Vital Signs Last 24 Hrs: Date Time Temp Pulse Resp B/P (MAP) Pulse Ox O2 Delivery O2 Flow Rate FiO2 12/03/17 06:51 36.9 59 16 127/70 112 137/77 Meds Administered Last 24 Hrs: Meds Administered (Past 24Hrs) Medications (Trade) Dose Ordered Sig/Reuben Route Start Time Stop Time Status Last Admin Dose Admin Risperidone (Risperdal Tab) 1 mg HS PO 12/01/17 22:00 12/02/17 09:21 DC 12/01/17 20:51 1 MG Lorazepam (Ativan Tab) 2 mg STK-MED ONCE .ROUTE 12/01/17 21:13 12/01/17 21:14 DC 12/01/17 21:18 2 MG Haloperidol (Haldol Tab) 10 mg ONE STAT PO 12/01/17 21:19 12/01/17 21:20 DC 12/01/17 21:22 10 MG Risperidone (Risperdal M Tab) 1 mg BID PO 12/02/17 09:30 01/01/18 09:29 12/03/17 09:16 1 MG
[2017-12-03] MEDS: RISPERIDONE ODT 1MG PO PRN ×2 (13:44→18:18)
[2017-12-04 06:55] VITALS: BP_SYST 116; BP_SYST 121; BP_DIAS 60; BP_DIAS 76; PULSE 63; PULSE 78; TEMP 36.4
[2017-12-04] MEDS: RISPERIDONE ODT 1MG PO SCH ×2 (07:33→21:26)
[2017-12-04] MEDS: NICOTINE 14 MG/24 HR TDSY TD SCH (07:34)
--- NOTE | 2017-12-04 11:19 | Psychiatric Progress Notes ---
Progress Note Date of Service Dec 04, 2017. Interval History Patient is a 22 year old white male admitted on 11/30/17 on a 201 voluntary commitment for psychiatric evaluation and treatment of acute onset marge. He had not slept in preparation to take the [employer] computerized test but was noted to be disorganized at [facility] so police were notified according to safety protocol. Chief Complaint "Good, just did a mile on the bike, that coffee's not too strong, feeling tired ". Subjective Patient was seen & assessed interval progress reviewed with Nursing. Staff report the patient was able to attend some groups, but was easily overstimulated and had difficulty focusing, reporting racing thoughts. He was more organized in his thinking last evening, and stated the risperidone has been helpful, as he has noted improved focus since starting it. He received a 1 mg as needed dose of risperidone yesterday afternoon for racing thoughts and feeling overstimulated. He then visited with his family. His father told staff that he had had superficial conversations with the patient that appeared to go well, but said some family members were concerned that he was schizophrenic. The patient said he had looked up symptoms of bipolar disorder, which he thought did not fit him, but thought maybe his symptoms were not as severe as those described. Today, the patient states that he feels he is improving, as he feels better able to focus, and gives the example that he was able to listen to a set of directions in group and follow without difficulty. He thinks that his thoughts are no longer racing quite as quickly as they were, and feels medication is helping. He reports broken sleep last night, which he attributes to taking a long nap yesterday, and then felt tired this morning. He states he drinks up to 4 cups of coffee a day at home, and the coffee here is too weak. He relates this to his breakfast, stating "I had blueberry yogurt for breakfast , think it made me a little tired, had pancakes, thought they could put blueberries on the pancakes, but I'm not a complainer." He describes his mood is "really wavy," meaning that he has had ups and downs, stating his mood was "really good" yesterday during the day, but then worse at night when he had difficulty sleeping and felt "paranoid." He describes this as "homesick and restless." He thinks he has improved since admission, stating "I guess I feel a little crappy now but not the type of crappy where I am going to do a whole bunch of drugs, if I can be mentally healthy I can be physically healthy and socially healthy." When asked to clarify his drug use, he states that he was smoking "a lot of marijuana," and also used both LSD and cocaine several times in the past 6 months, starting in the fall 2016. His last use of cocaine was over , and his last use of LSD was around the first of the year. He wants to stop using drugs, and thinks he needs to remove all drug paraphernalia from his room when he gets out of the hospital. He also thinks he needs to talk to his brother about not doing drugs around him so that he can stay sober, and says he and his brother and sister often smoke pot together. He is willing to return to outpatient substance abuse treatment at [facility]. He is not sure if he has discussed a family meeting with the social security benefits interviewer, but states that he is hoping that he does not have to stay in the hospital too much longer. Sleep Information Total Hours of Sleep: 6.00 Meal Information Percent of Breakfast Consumed: 100 Percent of Lunch Consumed: 100 Percent of Dinner Consumed: 100 Mental Status Exam During interview pt is: alert and oriented, cooperative Appearance: appropriately dressed, appropriately groomed, other (wearing glasses, earring in left ear) Eye contact is: good Motor behavior is: steady gait & station, psychomotor agitation (Restless, shifting frequently in his chair.) Speech: other (hyperverbal, rapid rate) Affect: mood congruent, other (mildly expansive) Mood is: other ("really wavy") Thought process: tangential, looseness of associations Thought content: cognitive distortions, delusions, ideas of reference Suicidal thought are: denied Homicidal thoughts are: denied Hallucinations: denies auditory, denies visual Cognition: language grossly intact, other (impaired attention and memory) Intelligence estimated to be: consistent with level of education Insight: impaired Judgement: impaired Impression The patient is a 22 year old male admitted on a 201 voluntary commitment from the ED for 1 week of manic symptoms with thought disorganization and grandiosity. Patient tested negative for amphetamines, although Adderall is prescribed by his outpatient psychiatrist for ADHD, and reports taking higher doses than prescribed to study at times. He uses MJ regularly, and has used LSD and cocaine in the past few of months as well. Wellbutrin and Adderall were held on admission, and he was started on risperidone. He requires inpatient treatment due to the severity of his manic and psychotic symptoms and inability to care for himself outside of the hospital. Plan (1) Bipolar 1 disorder As per JAE Banks---12/01/17 - Bipolar 1 Disorder single episode manic with psychotic features - Mood stabilizer is indicated. Risperdal 1mg at HS. Discussed with the patient the risks/benefits/alternative treatments were reviewed re: Risperdal for mood and/or psychosis. Discussion included but was not limited to metabolic side effects, risks of TD and suicidal thoughts. Baseline AIMS=0. Baseline metabolic labs were ordered. - Hold Adderall and Wellbutrin - encourage group therapy participation targeting coping mechanisms for stress and issues with alcohol, cannabis and stimulant misuse - recommend as OP Quotient testing for definitive ADHD diagnosis - meet with social security benefits interviewer for safety plan discussion - family meeting encouraged -suspect stimulant misuse, will engage family to help with pill counts and check against last fill per PDMP. 12/02--increase Risperdal to 1 mg BID this am, prn Haldol and Ativan as ordered. Consider 302 if escalates again. 12/03--continue risperidone 1 mg twice daily, and add a 1 mg as needed dose for psychosis/marge. --Fasting lipid profile and glucose performed yesterday, results reviewed and all were within normal limits. --Schedule family meeting once patient is more reality based and able to tolerate it. --Coordinate care with outpatient psychiatrist, Dr. Newell (message sent via EMR ). Wellbutrin and Adderall discontinued on admission. --Educated the patient about the diagnosis of bipolar disorder type I, and gave him an up-to-date patient handout about bipolar disorder. 12/04--Continue risperidone, got 1mg prn yesterday. Consolidate to bedtime prior to discharge. --Schedule family meeting as psychosis improving. Provide psychoeducation about diagnosis and treatment recommendations. --Family visiting today and have been asked to bring in his Wellbutrin and Adderall for pill count and safe disposal. --Psychosis improving and has been in good behavioral control, so will discontinue medically necessary private room. (2) Cannabis abuse - Advise patient to discontinue use - Encourage group participation to help patient learn other ways to cope with stress. Dr. South attempted 5+ min brief intervention on 12/01/17. He remains in precontemplation stage with regards to change. Impact of use on mood disorder reviewed. He is agreeable to resume outpatient therapy to address mood disorder and use. 12/03--continue to educate on the risks of continued substance abuse and recommendations for abstinence. Re-refer to [facility] counseling for substance abuse treatment. 12/04-- Brief intervention was offered and accepted. Intervention was greater than 5 min in length. Brief interventions include: 1. Assess Readiness to Quit, 2. Advise: Help Patient to Reduce or Abstain from Alcohol, 3. Agree: Set Specific, Feasible Goals, 4. Assist: Anticipate barriers, Problem-Solving Solutions. Social work to 5. Arrange: Referrals to appropriate treatment. Summary of intervention: The patient is in contemplation stage with regards to transtheoretical model of change. The patient is advised to decrease alcohol consumption due to depressant effects and risk of interactions with prescription medications. The patient agreed to abstain and return to substance abuse counseling, and will be provided with recovery materials to continue to education self on how to cope with their condition without drinking. --Re-refer to [facility]. Patient working on plan to talk with family about need to abstain, asking siblings not to smoke pot in front of him, and plan to remove drug paraphernalia from his room. (3) Nicotine abuse The patient is a current smoker but does not want to quit and declines brief intervention for tobacco cessation. Accepted nicotine replacement patch. Discharge / Aftercare Planning Primary Care Physician: Name: Leeann Davis Appointment Notes: [address], [place] [address] Psychiatrist: Name: [facility] - Dr. Newell Appointment Notes: [address], [address], [place] [address] Therapist: Name: Daniel (saw previously) Aircraft Engine Cylinder Mechanic: Name: None Visit Code E&M Code: 01492 Inventory Assets Strengths: smart and quick thinker Needs: future goal direction, family support,income Risk Factors Assessment Male: Yes /single/: No Higher / Fall in social status: No Mental Health Diagnoses: Yes Substance use disorders: No Previous attempt: No Previous psychiatric stay: No Hopelessness: No Smoker: Yes Protective Factors Assessment Oriental Orthodox beliefs: No : No Responsible for young children: No Employed: No Stable relationships: No Supportive family: No Good rapport with provider: Yes Absence of risk factors above: No Data Vital Signs Last 24 Hrs: Date Time Temp Pulse Resp B/P (MAP) Pulse Ox O2 Delivery O2 Flow Rate FiO2 12/04/17 06:55 36.4 78 16 116/60 63 121/76 Meds Administered Last 24 Hrs: Meds Administered (Past 24Hrs) Medications (Trade) Dose Ordered Sig/Reuben Route Start Time Stop Time Status Last Admin Dose Admin Risperidone (Risperdal M Tab) 1 mg Q4 PRN PO 12/03/17 11:15 01/02/18 11:14 12/03/17 18:18 1 MG
[2017-12-04] MEDS: RISPERIDONE ODT 1MG PO PRN (15:39)
[2017-12-05 06:32] VITALS: BP_SYST 119; BP_SYST 136; BP_DIAS 72; BP_DIAS 83; PULSE 67; PULSE 70; TEMP 36.4
[2017-12-05] MEDS: RISPERIDONE ODT 1MG PO SCH ×2 (09:23→21:09)
[2017-12-05] MEDS: NICOTINE 14 MG/24 HR TDSY TD SCH (09:23)
--- NOTE | 2017-12-05 12:36 | Psychiatric Progress Notes ---
Progress Note Date of Service Dec 05, 2017. Interval History Patient is a 22 year old white male admitted on 11/30/17 on a 201 voluntary commitment for psychiatric evaluation and treatment of acute onset marge. He had not slept in preparation to take the [place] computerized test but was noted to be disorganized at [facility] so police were notified according to safety protocol. Chief Complaint "OK". Subjective Patient was seen & assessed interval progress reviewed with Treatment Team. The patient says that he is doing "OK". He feels that since admission, he has gotten "a better perspective on things", realizing that "I wasn't dealing well with things" and now feels he is better prepared to cope with his illness. He denies racing thoughts today and speech is of normal rate. He felt happy with yesterday's family meeting, feeling he can talk with his family which is a relief to him. He has agreed to withdraw from school for the semester with hopes to return to school in the fall. He continues to have difficulty falling asleep, as his mind is too active. he denies side effects. He is having some daytime sedation, but thinks in part its related to drinking decaf beverages where he was used to having a lot of caffeine. He denies aud/vis hallucinations. Nursing report that last evening he appeared thought blocked and paranoid and did receive one dose of prn haldol. Review of Systems Constitutional: + fatigue ENT: No hearing loss, No unusual epistaxis, No nasal symptoms, No sore throat, No tinnitus, No dental problems, No trouble swallowing, No problem reported Respiratory: No cough, No sputum, No wheezing, No shortness of breath, No dyspnea on exertion, No dyspnea at rest, No hemoptysis, No problem reported Cardiovascular: No chest pain, No orthopnea, No PND, No edema, No claudication , No palpitations, No problem reported Abdomen: No pain, No nausea, No vomiting, No diarrhea, No constipation, No GI bleeding, No problem reported Musculoskeletal: No joint pain, No muscle pain, No swelling, No calf pain, No problem reported Neurologic: No memory loss, No paralysis, No weakness, No numbness/tingling, No vertigo, No balance problems, No problem reported Psychiatric: + insomnia Integumentary: No rash, No itch, No new/changing skin lesions, No color change , No bleeding, No problem reported Sleep Information Total Hours of Sleep: 7.25 Meal Information Percent of Breakfast Consumed: 100 Percent of Lunch Consumed: 100 Percent of Dinner Consumed: 100 Mental Status Exam During interview pt is: alert and oriented, cooperative Appearance: appropriately dressed, appropriately groomed, other (wearing glasses, earring in left ear) Eye contact is: good Motor behavior is: steady gait & station, no abnormal motor movements Speech: normal in rate, rhythm & volume Affect: mood congruent, blunted Mood is: other ("OK") Thought process: goal directed Thought content: cognitive distortions Suicidal thought are: denied Homicidal thoughts are: denied Hallucinations: denies auditory, denies visual Cognition: language grossly intact, other (impaired attention and memory) Intelligence estimated to be: consistent with level of education Insight: impaired Judgement: impaired Impression Some progress in that he is talking more slowly and with less agitation. some sedation during the day so will shift risperdal to HS and increase by 0.5 mg as his sleep remains impaired. Will be withdrawing from school and returning home. Plan (1) Bipolar 1 disorder As per JAE Banks---12/01/17 - Bipolar 1 Disorder single episode manic with psychotic features - Mood stabilizer is indicated. Risperdal 1mg at HS. Discussed with the patient the risks/benefits/alternative treatments were reviewed re: Risperdal for mood and/or psychosis. Discussion included but was not limited to metabolic side effects, risks of TD and suicidal thoughts. Baseline AIMS=0. Baseline metabolic labs were ordered. - Hold Adderall and Wellbutrin - encourage group therapy participation targeting coping mechanisms for stress and issues with alcohol, cannabis and stimulant misuse - recommend as OP Quotient testing for definitive ADHD diagnosis - meet with social and political studies professor for safety plan discussion - family meeting encouraged -suspect stimulant misuse, will engage family to help with pill counts and check against last fill per PDMP. 12/02--increase Risperdal to 1 mg BID this am, prn Haldol and Ativan as ordered. Consider 302 if escalates again. 12/03--continue risperidone 1 mg twice daily, and add a 1 mg as needed dose for psychosis/marge. --Fasting lipid profile and glucose performed yesterday, results reviewed and all were within normal limits. --Schedule family meeting once patient is more reality based and able to tolerate it. --Coordinate care with outpatient psychiatrist, Dr. Newell (message sent via EMR ). Wellbutrin and Adderall discontinued on admission. --Educated the patient about the diagnosis of bipolar disorder type I, and gave him an up-to-date patient handout about bipolar disorder. 12/04--Continue risperidone, got 1mg prn yesterday. Consolidate to bedtime prior to discharge. --Schedule family meeting as psychosis improving. Provide psychoeducation about diagnosis and treatment recommendations. --Family visiting today and have been asked to bring in his Wellbutrin and Adderall for pill count and safe disposal. --Psychosis improving and has been in good behavioral control, so will discontinue medically necessary private room. 12/05 - Increase risperdal to 2.5 mg and shift all to HS (2) Cannabis abuse - Advise patient to discontinue use - Encourage group participation to help patient learn other ways to cope with stress. Dr. South attempted 5+ min brief intervention on 12/01/17. He remains in precontemplation stage with regards to change. Impact of use on mood disorder reviewed. He is agreeable to resume outpatient therapy to address mood disorder and use. 12/03--continue to educate on the risks of continued substance abuse and recommendations for abstinence. Re-refer to [facility] for substance abuse treatment. 12/04-- Brief intervention was offered and accepted. Intervention was greater than 5 min in length. Brief interventions include: 1. Assess Readiness to Quit, 2. Advise: Help Patient to Reduce or Abstain from Alcohol, 3. Agree: Set Specific, Feasible Goals, 4. Assist: Anticipate barriers, Problem-Solving Solutions. Social work to 5. Arrange: Referrals to appropriate treatment. Summary of intervention: The patient is in contemplation stage with regards to transtheoretical model of change. The patient is advised to decrease alcohol consumption due to depressant effects and risk of interactions with prescription medications. The patient agreed to abstain and return to substance abuse counseling, and will be provided with recovery materials to continue to education self on how to cope with their condition without drinking. --[facility]-refer to [facility]. Patient working on plan to talk with family about need to abstain, asking siblings not to smoke pot in front of him, and plan to remove drug paraphernalia from his room. (3) Nicotine abuse The patient is a current smoker but does not want to quit and declines brief intervention for tobacco cessation. Accepted nicotine replacement patch. Discharge / Aftercare Planning Primary Care Physician: Name: Leeann Davis - appointment to be scheduled as needed Appointment Notes: [address], [place] [address] Psychiatrist: Name: [facility] - Dr. Newell Date of Appointment: Dec 13, 2017 Time of Appointment: 2:40 pm Appointment Notes: [address] [facility], [address], [place] [address] Therapist: Name: Daniel Garcia Date of Appointment: Dec 28, 2017 Time of Appointment: 10:30 am Appointment Notes: [address] [facility] [facility] [address] Crank Hand: Name: None Visit Code E&M Code: 60857 Inventory Assets Strengths: smart and quick thinker Needs: future goal direction, family support,income Risk Factors Assessment Male: Yes /single/: No Higher / Fall in social status: No Mental Health Diagnoses: Yes Substance use disorders: No Previous attempt: No Previous psychiatric stay: No Hopelessness: No Smoker: Yes Protective Factors Assessment Mosque beliefs: No : No Responsible for young children: No Employed: No Stable relationships: No Supportive family: No Good rapport with provider: Yes Absence of risk factors above: No Data Vital Signs Last 24 Hrs: Date Time Temp Pulse Resp B/P (MAP) Pulse Ox O2 Delivery O2 Flow Rate FiO2 12/05/17 06:32 36.4 67 16 119/72 70 136/83 Meds Administered Last 24 Hrs: Current Inpatient Medications Medications (Trade) Dose Ordered Sig/Reuben Route Start Time Stop Time Status Last Admin Dose Admin Acetaminophen (Tylenol Tab) 650 mg Q4H PRN PO 11/30/17 16:15 12/30/17 16:14 Bismuth Subsalicylate (Kaopectate Liqd) 15 ml PRN PRN PO 11/30/17 16:15 12/30/17 16:14 Al Hydroxide/Mg Hydroxide (Maalox Susp) 30 ml Q4H PRN PO 11/30/17 16:15 4/15/18 16:14 Magnesium Hydroxide (Milk Of Magnesia Susp) 30 ml DAILY PRN PO 11/30/17 16:15 12/30/17 16:14 Sodium Chloride ([place] Nasal [place]) PRN PRN NA 11/30/17 16:15 12/30/17 16:14 Hydroxyzine HCl (Vistaril Tab) 50 mg HSZ PRN PO 11/30/17 16:15 12/30/17 16:14 Hydroxyzine HCl (Vistaril Tab) 25 mg Q4H PRN PO 11/30/17 16:15 12/30/17 16:14 Nicotine (Nicoderm Cq 14MG Patch) 1 patch QAM TD 11/30/17 17:00 12/30/17 16:59 12/05/17 09:23 1 PATCH Miscellaneous (Remove Nicoderm Patch) 1 ea HS N/A 11/30/17 22:00 12/30/17 21:59 12/04/17 21:26 1 EA Benztropine Mesylate (Cogentin Tab) 0.5 mg BID PRN PO 11/30/17 18:15 12/30/17 18:14 12/02/17 14:01 0.5 MG Risperidone (Risperdal M Tab) 1 mg BID PO 12/02/17 09:30 01/01/18 09:29 12/05/17 09:23 1 MG Risperidone (Risperdal M Tab) 1 mg Q4 PRN PO 12/03/17 11:15 01/02/18 11:14 12/04/17 15:39 1 MG Lab Results Last 24 Hrs: 11/30/17 13:08 Red Blood Count 5.29, Mean Corpuscular Volume 82.6, Mean Corpuscular Hemoglobin 30.1, Mean Corpuscular Hemoglobin Concent 36.4, Mean Platelet Volume 8.8, Neutrophils (%) (Auto) 73.7, Lymphocytes (%) (Auto) 17.4, Monocytes (%) (Auto) 8.1, Eosinophils (%) (Auto) 0.1, Basophils (%) (Auto) 0.3, Neutrophils # (Auto) 5.11, Lymphocytes # (Auto) 1.21, Monocytes # (Auto) 0.56, Eosinophils # (Auto) 0.01, Basophils # (Auto) 0.02 11/30/17 13:08 Test 11/30/17 12:19 11/30/17 12:20 11/30/17 13:08 12/01/17 12:40 Bedside Glucose 103 mg/dl (70-99) Urine Color YELLOW Urine Appearance CLEAR (CLEAR) Urine pH 7.5 (4.5-7.5) Urine Specific [place] 1.011 (1.000-1.030) Urine Protein NEG (NEG) Urine Glucose (UA) NEG (NEG) Urine Ketones 1+ (NEG) Urine Occult Blood NEG (NEG) Urine Nitrite NEG (NEG) Urine Bilirubin NEG (NEG) Urine Urobilinogen NEG (NEG) Urine Leukocyte Esterase NEG (NEG) Urine Opiates Screen NEG (NEG) Urine Methadone, Qualitative NEG (NEG) Urine Barbiturates NEG (NEG) Urine Phencyclidine (PCP) Level NEG (NEG) Ur Amphetamine/Methamphetamine NEG (NEG) Urine MDE-amphetamine (MDEA) negative Ur Methylenedioxyamphetamine (MDA) negative MDMA (Ecstasy) Screen POS (NEG) Methylenedioxymethamphetamine (MDMA negative Urine Benzodiazepines Screen NEG (NEG) Urine Cocaine Metabolite NEG (NEG) Urine Marijuana (THC) POS (NEG) Urine Marijuana (THC Carboxy Acid) 476 NG/ML (CUTOFF=5) White Blood Count 6.94 K/uL (4.8-10.8) Red Blood Count 5.29 M/uL (4.7-6.1) Hemoglobin 15.9 g/dL (14.0-18.0) Hematocrit 43.7 % (42-52) Mean Corpuscular Volume 82.6 fL (80-100) Mean Corpuscular Hemoglobin 30.1 pg (25-34) Mean Corpuscular Hemoglobin Concent 36.4 g/dl (32-36) Platelet Count 255 K/uL (130-400) Mean Platelet Volume 8.8 fL (7.4-10.4) Neutrophils (%) (Auto) 73.7 % Lymphocytes (%) (Auto) 17.4 % Monocytes (%) (Auto) 8.1 % Eosinophils (%) (Auto) 0.1 % Basophils (%) (Auto) 0.3 % Neutrophils # (Auto) 5.11 K/uL (1.4-6.5) Lymphocytes # (Auto) 1.21 K/uL (1.2-3.4) Monocytes # (Auto) 0.56 K/uL (0.11-0.59) Eosinophils # (Auto) 0.01 K/uL (0-0.5) Basophils # (Auto) 0.02 K/uL (0-0.2) RDW Standard Deviation 37.7 fL (36.4-46.3) RDW Coefficient of Variation 12.6 % (11.5-14.5) Immature Granulocyte % (Auto) 0.4 % Immature Granulocyte # (Auto) 0.03 K/uL (0.00-0.02) Anion Gap 9.0 mmol/L (3-11) Est Creatinine Clear Calc Drug Dose 136.2 ml/min Estimated GFR () 123.3 Estimated GFR (Non- 106.4 BUN/Creatinine Ratio 6.8 (10-20) Calcium Level 9.5 mg/dl (8.5-10.1) Total Bilirubin 0.5 mg/dl (0.2-1) Direct Bilirubin 0.1 mg/dl (0-0.2) Aspartate Amino Transf (AST/SGOT) 16 U/L (15-37) Alanine Aminotransferase (ALT/SGPT) 25 U/L (12-78) Alkaline Phosphatase 57 U/L (45-117) Total Protein 8.0 gm/dl (6.4-8.2) Albumin 4.8 gm/dl (3.4-5.0) Globulin 3.2 gm/dl (2.5-4.0) Albumin/Globulin Ratio 1.5 (0.9-2) Thyroid Stimulating Hormone (TSH) 0.745 uIu/ml (0.300-4.500) Ethyl Alcohol mg/dL < 3.0 mg/dl (0-3) Test 12/02/17 06:21 Fasting Glucose 92 mg/dl (70-99) Triglycerides Level 86 mg/dl (0-150) Cholesterol Level 180 mg/dl (0-200) HDL Cholesterol 43 mg/dl LDL Cholesterol, Calculated 120 mg/dl VLDL Cholesterol, Calculated 17 mg/dl Cholesterol/HDL Ratio 4.2
[2017-12-05] MEDS: RISPERIDONE ODT 1MG PO PRN (19:01)
[2017-12-06 06:50] VITALS: BP_SYST 123; BP_SYST 128; BP_DIAS 70; BP_DIAS 74; PULSE 46; PULSE 88; TEMP 36.4
[2017-12-06] MEDS: NICOTINE 14 MG/24 HR TDSY TD SCH (08:23)
--- NOTE | 2017-12-06 10:25 | Psychiatric Progress Notes ---
Progress Note Date of Service Dec 06, 2017. Interval History Patient is a 22 year old white male admitted on 11/30/17 on a 201 voluntary commitment for psychiatric evaluation and treatment of acute onset marge. He had not slept in preparation to take the Seer computerized test but was noted to be disorganized at [facility] so police were notified according to safety protocol. Chief Complaint "OK". Subjective Patient was seen & assessed interval progress reviewed with Treatment Team. The patient says that he had some "ups and downs" yesterday in the evening. Nursing reports that while visiting with his parents last evening he became more paranoid, talking about patients here have "alter egos" and not being who they said they were. He initially refused to take a prn of Risperdal but eventually did and appeared to be helpful per the notes. Today he says that he is still having trouble feeling overstimulated at certain times when many things are going on. He knows that he needs to be able to remove himself from those situations in order to reduce stimulation. He says that he misses his family and is anxious to get home to them, but is still having trouble talking to them, but says that he thinks that some of that is appropriate given that he is 22 years old. He continues to deny SI/HI, denies aud/vis hallucinations. He denies racing thoughts. Review of Systems Constitutional: No fever, No chills, No sweats, No weight loss, No weakness, No fatigue, No problem reported ENT: No hearing loss, No unusual epistaxis, No nasal symptoms, No sore throat, No tinnitus, No dental problems, No trouble swallowing, No problem reported Respiratory: No cough, No sputum, No wheezing, No shortness of breath, No dyspnea on exertion, No dyspnea at rest, No hemoptysis, No problem reported Cardiovascular: No chest pain, No orthopnea, No PND, No edema, No claudication , No palpitations, No problem reported Abdomen: No pain, No nausea, No vomiting, No diarrhea, No constipation, No GI bleeding, No problem reported Musculoskeletal: No joint pain, No muscle pain, No swelling, No calf pain, No problem reported Neurologic: No memory loss, No paralysis, No weakness, No numbness/tingling, No vertigo, No balance problems, No problem reported Psychiatric: + depression symptoms, + problem reported (paranoia) Integumentary: No rash, No itch, No new/changing skin lesions, No color change , No bleeding, No problem reported Sleep Information Total Hours of Sleep: 7.25 Meal Information Percent of Breakfast Consumed: 100 Percent of Lunch Consumed: 100 Percent of Dinner Consumed: 100 Mental Status Exam During interview pt is: alert and oriented, cooperative Appearance: appropriately dressed, appropriately groomed, other (wearing glasses, earring in left ear) Eye contact is: good Motor behavior is: steady gait & station, no abnormal motor movements Speech: normal in rate, rhythm & volume Affect: mood congruent, blunted Mood is: other ("OK") Thought process: goal directed Thought content: cognitive distortions Suicidal thought are: denied Homicidal thoughts are: denied Hallucinations: denies auditory, denies visual Cognition: memory grossly intact, attention grossly intact, language grossly intact Intelligence estimated to be: consistent with level of education Insight: impaired Judgement: impaired Impression Episode of paranoia last evening, recieved prn. Risperdal goes to 2.5 mg. all at HS tonight. Will continue prns. Mother is requesting another meeting to discuss other info she found on his phone. Plan (1) Bipolar 1 disorder As per JAE Banks---12/01/17 - Bipolar 1 Disorder single episode manic with psychotic features - Mood stabilizer is indicated. Risperdal 1mg at HS. Discussed with the patient the risks/benefits/alternative treatments were reviewed re: Risperdal for mood and/or psychosis. Discussion included but was not limited to metabolic side effects, risks of TD and suicidal thoughts. Baseline AIMS=0. Baseline metabolic labs were ordered. - Hold Adderall and Wellbutrin - encourage group therapy participation targeting coping mechanisms for stress and issues with alcohol, cannabis and stimulant misuse - recommend as OP Quotient testing for definitive ADHD diagnosis - meet with licensed master social worker for safety plan discussion - family meeting encouraged -suspect stimulant misuse, will engage family to help with pill counts and check against last fill per PDMP. 12/02--increase Risperdal to 1 mg BID this am, prn Haldol and Ativan as ordered. Consider 302 if escalates again. 12/03--continue risperidone 1 mg twice daily, and add a 1 mg as needed dose for psychosis/marge. --Fasting lipid profile and glucose performed yesterday, results reviewed and all were within normal limits. --Schedule family meeting once patient is more reality based and able to tolerate it. --Coordinate care with outpatient psychiatrist, Dr. Newell (message sent via EMR ). Wellbutrin and Adderall discontinued on admission. --Educated the patient about the diagnosis of bipolar disorder type I, and gave him an up-to-date patient handout about bipolar disorder. 12/04--Continue risperidone, got 1mg prn yesterday. Consolidate to bedtime prior to discharge. --Schedule family meeting as psychosis improving. Provide psychoeducation about diagnosis and treatment recommendations. --Family visiting today and have been asked to bring in his Wellbutrin and Adderall for pill count and safe disposal. --Psychosis improving and has been in good behavioral control, so will discontinue medically necessary private room. 12/05 - Increase risperdal to 2.5 mg and shift all to HS 12/06 - Continue current meds (2) Cannabis abuse - Advise patient to discontinue use - Encourage group participation to help patient learn other ways to cope with stress. Dr. South attempted 5+ min brief intervention on 12/01/17. He remains in precontemplation stage with regards to change. Impact of use on mood disorder reviewed. He is agreeable to resume outpatient therapy to address mood disorder and use. 12/03--continue to educate on the risks of continued substance abuse and recommendations for abstinence. Re-refer to [facility] for substance abuse treatment. 12/04-- Brief intervention was offered and accepted. Intervention was greater than 5 min in length. Brief interventions include: 1. Assess Readiness to Quit, 2. Advise: Help Patient to Reduce or Abstain from Alcohol, 3. Agree: Set Specific, Feasible Goals, 4. Assist: Anticipate barriers, Problem-Solving Solutions. Social work to 5. Arrange: Referrals to appropriate treatment. Summary of intervention: The patient is in contemplation stage with regards to transtheoretical model of change. The patient is advised to decrease alcohol consumption due to depressant effects and risk of interactions with prescription medications. The patient agreed to abstain and return to substance abuse counseling, and will be provided with recovery materials to continue to education self on how to cope with their condition without drinking. --Re-refer to [facility]. Patient working on plan to talk with family about need to abstain, asking siblings not to smoke pot in front of him, and plan to remove drug paraphernalia from his room. (3) Nicotine abuse The patient is a current smoker but does not want to quit and declines brief intervention for tobacco cessation. Accepted nicotine replacement patch. Discharge / Aftercare Planning Primary Care Physician: Name: Leeann Davis - appointment to be scheduled as needed Appointment Notes: [address], [place] [address] Psychiatrist: Name: [facility] - Dr. Newell Date of Appointment: Dec 13, 2017 Time of Appointment: 2:40 pm Appointment Notes: [address], [address], [place] [address] Therapist: Name: Daniel Garcia Date of Appointment: Dec 28, 2017 Time of Appointment: 10:30 am Appointment Notes: [address] [place] [address] Cooperative Education Director: Name: None Visit Code E&M Code: 05442 Inventory Assets Strengths: smart and quick thinker Needs: future goal direction, family support,income Risk Factors Assessment Male: Yes /single/: No Higher / Fall in social status: No Mental Health Diagnoses: Yes Substance use disorders: No Previous attempt: No Previous psychiatric stay: No Hopelessness: No Smoker: Yes Protective Factors Assessment Latter-Day beliefs: No : No Responsible for young children: No Employed: No Stable relationships: No Supportive family: No Good rapport with provider: Yes Absence of risk factors above: No Data Vital Signs Last 24 Hrs: Date Time Temp Pulse Resp B/P (MAP) Pulse Ox O2 Delivery O2 Flow Rate FiO2 12/06/17 06:50 36.4 46 16 128/70 88 123/74 Meds Administered Last 24 Hrs: Current Inpatient Medications Medications (Trade) Dose Ordered Sig/Reuben Route Start Time Stop Time Status Last Admin Dose Admin Acetaminophen (Tylenol Tab) 650 mg Q4H PRN PO 11/30/17 16:15 12/30/17 16:14 Bismuth Subsalicylate (Kaopectate Liqd) 15 ml PRN PRN PO 11/30/17 16:15 12/30/17 16:14 Al Hydroxide/Mg Hydroxide (Maalox Susp) 30 ml Q4H PRN PO 11/30/17 16:15 12/30/17 16:14 Magnesium Hydroxide (Milk Of Magnesia Susp) 30 ml DAILY PRN PO 11/30/17 16:15 12/30/17 16:14 Sodium Chloride ([place]) PRN PRN NA 11/30/17 16:15 12/30/17 16:14 Hydroxyzine HCl (Vistaril Tab) 50 mg HSZ PRN PO 11/30/17 16:15 12/30/17 16:14 12/05/17 22:10 50 MG Hydroxyzine HCl (Vistaril Tab) 25 mg Q4H PRN PO 11/30/17 16:15 12/30/17 16:14 Nicotine (Nicoderm Cq 14MG Patch) 1 patch QAM TD 11/30/17 17:00 12/30/17 16:59 12/06/17 08:23 1 PATCH Miscellaneous (Remove Nicoderm Patch) 1 ea HS N/A 11/30/17 22:00 12/30/17 21:59 12/04/17 21:26 1 EA Benztropine Mesylate (Cogentin Tab) 0.5 mg BID PRN PO 11/30/17 18:15 12/30/17 18:14 12/02/17 14:01 0.5 MG Risperidone (Risperdal M Tab) 1 mg Q4 PRN PO 12/03/17 11:15 01/02/18 11:14 12/05/17 19:01 1 MG Risperidone (Risperdal M Tab) 2.5 mg HS PO 12/06/17 22:00 01/05/18 21:59 Lab Results Last 24 Hrs: 11/30/17 13:08 Red Blood Count 5.29, Mean Corpuscular Volume 82.6, Mean Corpuscular Hemoglobin 30.1, Mean Corpuscular Hemoglobin Concent 36.4, Mean Platelet Volume 8.8, Neutrophils (%) (Auto) 73.7, Lymphocytes (%) (Auto) 17.4, Monocytes (%) (Auto) 8.1, Eosinophils (%) (Auto) 0.1, Basophils (%) (Auto) 0.3, Neutrophils # (Auto) 5.11, Lymphocytes # (Auto) 1.21, Monocytes # (Auto) 0.56, Eosinophils # (Auto) 0.01, Basophils # (Auto) 0.02 11/30/17 13:08 Test 11/30/17 12:19 11/30/17 12:20 11/30/17 13:08 12/01/17 12:40 Bedside Glucose 103 mg/dl (70-99) Urine Color YELLOW Urine Appearance CLEAR (CLEAR) Urine pH 7.5 (4.5-7.5) Urine Specific [place] 1.011 (1.000-1.030) Urine Protein NEG (NEG) Urine Glucose (UA) NEG (NEG) Urine Ketones 1+ (NEG) Urine Occult Blood NEG (NEG) Urine Nitrite NEG (NEG) Urine Bilirubin NEG (NEG) Urine Urobilinogen NEG (NEG) Urine Leukocyte Esterase NEG (NEG) Urine Opiates Screen NEG (NEG) Urine Methadone, Qualitative NEG (NEG) Urine Barbiturates NEG (NEG) Urine Phencyclidine (PCP) Level NEG (NEG) Ur Amphetamine/Methamphetamine NEG (NEG) Urine MDE-amphetamine (MDEA) negative Ur Methylenedioxyamphetamine (MDA) negative MDMA (Ecstasy) Screen POS (NEG) Methylenedioxymethamphetamine (MDMA negative Urine Benzodiazepines Screen NEG (NEG) Urine Cocaine Metabolite NEG (NEG) Urine Marijuana (THC) POS (NEG) Urine Marijuana (THC Carboxy Acid) 476 NG/ML (CUTOFF=5) White Blood Count 6.94 K/uL (4.8-10.8) Red Blood Count 5.29 M/uL (4.7-6.1) Hemoglobin 15.9 g/dL (14.0-18.0) Hematocrit 43.7 % (42-52) Mean Corpuscular Volume 82.6 fL (80-100) Mean Corpuscular Hemoglobin 30.1 pg (25-34) Mean Corpuscular Hemoglobin Concent 36.4 g/dl (32-36) Platelet Count 255 K/uL (130-400) Mean Platelet Volume 8.8 fL (7.4-10.4) Neutrophils (%) (Auto) 73.7 % Lymphocytes (%) (Auto) 17.4 % Monocytes (%) (Auto) 8.1 % Eosinophils (%) (Auto) 0.1 % Basophils (%) (Auto) 0.3 % Neutrophils # (Auto) 5.11 K/uL (1.4-6.5) Lymphocytes # (Auto) 1.21 K/uL (1.2-3.4) Monocytes # (Auto) 0.56 K/uL (0.11-0.59) Eosinophils # (Auto) 0.01 K/uL (0-0.5) Basophils # (Auto) 0.02 K/uL (0-0.2) RDW Standard Deviation 37.7 fL (36.4-46.3) RDW Coefficient of Variation 12.6 % (11.5-14.5) Immature Granulocyte % (Auto) 0.4 % Immature Granulocyte # (Auto) 0.03 K/uL (0.00-0.02) Anion Gap 9.0 mmol/L (3-11) Est Creatinine Clear Calc Drug Dose 136.2 ml/min Estimated GFR () 123.3 Estimated GFR (Non- 106.4 BUN/Creatinine Ratio 6.8 (10-20) Calcium Level 9.5 mg/dl (8.5-10.1) Total Bilirubin 0.5 mg/dl (0.2-1) Direct Bilirubin 0.1 mg/dl (0-0.2) Aspartate Amino Transf (AST/SGOT) 16 U/L (15-37) Alanine Aminotransferase (ALT/SGPT) 25 U/L (12-78) Alkaline Phosphatase 57 U/L (45-117) Total Protein 8.0 gm/dl (6.4-8.2) Albumin 4.8 gm/dl (3.4-5.0) Globulin 3.2 gm/dl (2.5-4.0) Albumin/Globulin Ratio 1.5 (0.9-2) Thyroid Stimulating Hormone (TSH) 0.745 uIu/ml (0.300-4.500) Ethyl Alcohol mg/dL < 3.0 mg/dl (0-3) Test 12/02/17 06:21 Fasting Glucose 92 mg/dl (70-99) Triglycerides Level 86 mg/dl (0-150) Cholesterol Level 180 mg/dl (0-200) HDL Cholesterol 43 mg/dl LDL Cholesterol, Calculated 120 mg/dl VLDL Cholesterol, Calculated 17 mg/dl Cholesterol/HDL Ratio 4.2
[2017-12-06] MEDS: RISPERIDONE ODT 1MG PO SCH (21:45)
[2017-12-07 06:50] VITALS: BP_SYST 112; BP_SYST 120; BP_DIAS 67; BP_DIAS 78; PULSE 78; PULSE 98; TEMP 36.4
[2017-12-07] MEDS: NICOTINE 14 MG/24 HR TDSY TD SCH (09:27)
--- NOTE | 2017-12-07 10:35 | Psych Management Progress Note ---
Psychiatry Miscellaneous Date of Service: Dec 07, 2017. Patient seen, MS assessed. Rates mood as 03/26. Encouraged cooperation with care and treatment plan as outlined by allied health prescriber.
--- NOTE | 2017-12-07 14:45 | Psychiatric Progress Notes ---
Progress Note Date of Service Dec 07, 2017. Interval History Patient is a 22 year old white male admitted on 11/30/17 on a 201 voluntary commitment for psychiatric evaluation and treatment of acute onset marge. He had not slept in preparation to take the Emb[employer] computerized test but was noted to be disorganized at [facility] so police were notified according to safety protocol. Chief Complaint "I definitely feel like I'm getting a rhythm back that I didn't have before". Subjective Patient was seen & assessed interval progress reviewed with Treatment Team. Staff reports the patient had meetings with family yesterday which appeared to be difficult for the patient. Staff has noticed rapid decompensation during interactions with family compared to his regular behavior on the unit. Staff also reports paranoia last evening in which the patient was questioning why strangers were taking care of him. Pt was seen today to assess progress since admission. He reports feeling like he's getting back in the rhythm he was in when he was doing very well in school. Pt has noticed a benefit from the Risperdal and denies side effects aside from sedation. He states he does not feel groggy upon awakening. Pt denies paranoia today and states his thoughts have cleared. He does, however, report irritability with family visits last evening, stating he notices that family members sometimes have that affect on him. Pt denies SI/HI, A/V hallucinations, or other delusional thoughts today. He denies other concerns or needs at this time. Review of Systems Psych: denies symptoms other than stated above Constitutional: denied Cardiovascular: denied GI: denied Neurologic: denied Remainder of 10 body systems also reviewed and denied other than noted above. Sleep Information Total Hours of Sleep: 6.50 Meal Information Percent of Breakfast Consumed: 100 Percent of Lunch Consumed: 100 Percent of Dinner Consumed: 100 Mental Status Exam During interview pt is: alert and oriented, cooperative Appearance: appropriately dressed, appropriately groomed, other (wearing glasses, earring in left ear) Eye contact is: good Motor behavior is: steady gait & station, no abnormal motor movements Speech: normal in rate, rhythm & volume Affect: mood congruent, blunted (mood improving; showing more affect) Mood is: other ("improving" "good") Thought process: goal directed, clear, coherent Thought content: reality based without delusions Suicidal thought are: denied Homicidal thoughts are: denied Hallucinations: denies auditory, denies visual Cognition: memory grossly intact, attention grossly intact, language grossly intact Intelligence estimated to be: consistent with level of education Insight: fair Judgement: fair Impression Pt denies ongoing delusions and paranoia today. Reports Risperdal 2.5mg qHS has been very helpful for mood and clarity of thought. Notices in himself increased irritability with visits from family. Family meeting with mother scheduled for Sunday. 72-hour notice expires 12/09 - patient informed of ability to rescind if willing which he does not immediately decline. Due to self-identified and staff-reported decompensation with family, patient remains at high risk for harm to self or others if discharged too quickly. Requires inpatient mental health treatment until stability of mood and thought process can be adequately observed. Plan (1) Bipolar 1 disorder As per JAE Banks---12/01/17 - Bipolar 1 Disorder single episode manic with psychotic features - Mood stabilizer is indicated. Risperdal 1mg at HS. Discussed with the patient the risks/benefits/alternative treatments were reviewed re: Risperdal for mood and/or psychosis. Discussion included but was not limited to metabolic side effects, risks of TD and suicidal thoughts. Baseline AIMS=0. Baseline metabolic labs were ordered. - Hold Adderall and Wellbutrin - encourage group therapy participation targeting coping mechanisms for stress and issues with alcohol, cannabis and stimulant misuse - recommend as OP Quotient testing for definitive ADHD diagnosis - meet with social welfare clerk for safety plan discussion - family meeting encouraged -suspect stimulant misuse, will engage family to help with pill counts and check against last fill per PDMP. 12/02--increase Risperdal to 1 mg BID this am, prn Haldol and Ativan as ordered. Consider 302 if escalates again. 12/03--continue risperidone 1 mg twice daily, and add a 1 mg as needed dose for psychosis/marge. --Fasting lipid profile and glucose performed yesterday, results reviewed and all were within normal limits. --Schedule family meeting once patient is more reality based and able to tolerate it. --Coordinate care with outpatient psychiatrist, Dr. Newell (message sent via EMR ). Wellbutrin and Adderall discontinued on admission. --Educated the patient about the diagnosis of bipolar disorder type I, and gave him an up-to-date patient handout about bipolar disorder. 12/04--Continue risperidone, got 1mg prn yesterday. Consolidate to bedtime prior to discharge. --Schedule family meeting as psychosis improving. Provide psychoeducation about diagnosis and treatment recommendations. --Family visiting today and have been asked to bring in his Wellbutrin and Adderall for pill count and safe disposal. --Psychosis improving and has been in good behavioral control, so will discontinue medically necessary private room. 12/05 - Increase risperdal to 2.5 mg and shift all to HS 12/06 - Continue current meds 12/07 - Continue Risperdal 2.5mg qHS - Family meeting with mother on Sun, 12/09 - 72-hour notice to 12/09 - patient aware of ability to rescind. (2) Cannabis abuse - Advise patient to discontinue use - Encourage group participation to help patient learn other ways to cope with stress. Dr. South attempted 5+ min brief intervention on 12/01/17. He remains in precontemplation stage with regards to change. Impact of use on mood disorder reviewed. He is agreeable to resume outpatient therapy to address mood disorder and use. 12/03--continue to educate on the risks of continued substance abuse and recommendations for abstinence. Re-refer to [facility] for substance abuse treatment. 12/04-- Brief intervention was offered and accepted. Intervention was greater than 5 min in length. Brief interventions include: 1. Assess Readiness to Quit, 2. Advise: Help Patient to Reduce or Abstain from Alcohol, 3. Agree: Set Specific, Feasible Goals, 4. Assist: Anticipate barriers, Problem-Solving Solutions. Social work to 5. Arrange: Referrals to appropriate treatment. Summary of intervention: The patient is in contemplation stage with regards to transtheoretical model of change. The patient is advised to decrease alcohol consumption due to depressant effects and risk of interactions with prescription medications. The patient agreed to abstain and return to substance abuse counseling, and will be provided with recovery materials to continue to education self on how to cope with their condition without drinking. --[facility] to [facility]. Patient working on plan to talk with family about need to abstain, asking siblings not to smoke pot in front of him, and plan to remove drug paraphernalia from his room. (3) Nicotine abuse The patient is a current smoker but does not want to quit and declines brief intervention for tobacco cessation. Accepted nicotine replacement patch. Discharge / Aftercare Planning Primary Care Physician: Name: Leeann Davis - appointment to be scheduled as needed Appointment Notes: [address], [place] [address] [facility] Date of Appointment: Dec 13, 2017 Time of Appointment: 2:40 pm Appointment Notes: [address] [facility] [address], [place] [address] Therapist: Name: Daniel Garcia Date of Appointment: Dec 28, 2017 Time of Appointment: 10:30 am Appointment Notes: [address] [facility] [address] Melting Operator: Name: None Visit Code E&M Code: 54255 Inventory Assets Strengths: smart and quick thinker Needs: future goal direction, family support,income Risk Factors Assessment Male: Yes /single/: No Higher / Fall in social status: No Mental Health Diagnoses: Yes Substance use disorders: No Previous attempt: No Previous psychiatric stay: No Hopelessness: No Smoker: Yes Protective Factors Assessment Anabaptist beliefs: No : No Responsible for young children: No Employed: No Stable relationships: No Supportive family: No Good rapport with provider: Yes Absence of risk factors above: No Data Vital Signs Last 24 Hrs: Date Time Temp Pulse Resp B/P (MAP) Pulse Ox O2 Delivery O2 Flow Rate FiO2 12/07/17 06:50 36.4 78 16 112/67 98 120/78 Meds Administered Last 24 Hrs: Meds Administered (Past 24Hrs) Medications (Trade) Dose Ordered Sig/Reuben Route Start Time Stop Time Status Last Admin Dose Admin Risperidone (Risperdal M Tab) 2.5 mg HS PO 12/06/17 22:00 01/05/18 21:59 12/06/17 21:45 2.5 MG
[2017-12-07] MEDS: RISPERIDONE ODT 1MG PO SCH (21:24)
[2017-12-08 06:28] VITALS: BP_SYST 128; BP_SYST 144; BP_DIAS 74; BP_DIAS 78; PULSE 106; PULSE 99; TEMP 36.5
[2017-12-08] MEDS: NICOTINE 14 MG/24 HR TDSY TD SCH (09:09)
--- NOTE | 2017-12-08 11:18 | Psych Management Progress Note ---
Psychiatry Miscellaneous Date of Service: Dec 08, 2017. Patient seen, MS assessed. No acute complaints. Encouraged cooperation with care and treatment plan as outlined by allied health prescriber.
--- NOTE | 2017-12-08 12:39 | Psychiatric Progress Notes ---
Progress Note Date of Service Dec 08, 2017. Interval History Patient is a 22 year old white male admitted on 11/30/17 on a 201 voluntary commitment for psychiatric evaluation and treatment of acute onset marge. He had not slept in preparation to take the [employer] labs computerized test but was noted to be disorganized at [facility] so police were notified according to safety protocol. Chief Complaint "I'm feeling better, I have a long way to go, I want to learn". Subjective Patient was seen & assessed interval progress reviewed with Treatment Team. The patient reports feeling at least 50% better than on admission. He states he has a long way to go and rescinded his notice so he could stay. He is afraid and concerned how he will do out in the real world. He reports worrying about the unknown and relays that he is trying to do and learn all he can while on the unit to be prepared. He feels more anxious because of it. He also reports he is not afraid now to ask for help and states his family meeting with his dad went "great" because he held back and did not try to impose his opinion or thoughts on his dad. He states his dad is having a hard time dealing with him and always has. He states he accepts responsibility when looking or acting angry because he was angry when trying to get his point across. He reports realizing that other people know more than he does. He reports that he is sleeping and eating well. He feels his energy is good and he is enjoying groups and learning from others. He is showering and doing his ADL's. He denies feeling paranoid. He denies SI/HI plan or intent. He denies marge, hypomania or psychosis symptoms. He denies AH/VH. Review of Systems Psych: denies symptoms other than stated above Constitutional: denied Cardiovascular: denied GI: denied Neurologic: denied Remainder of 10 body systems also reviewed and denied other than noted above. Sleep Information Total Hours of Sleep: 6.75 Meal Information Percent of Breakfast Consumed: 100 Percent of Lunch Consumed: 100 Percent of Dinner Consumed: 100 Mental Status Exam During interview pt is: alert and oriented, cooperative Appearance: appropriately dressed, appropriately groomed, other (wearing glasses, earring in left ear) Eye contact is: good Motor behavior is: steady gait & station, no abnormal motor movements Speech: normal in rate, rhythm & volume Affect: mood congruent, blunted (mood improving; showing more affect), anxious Mood is: other Thought process: goal directed, clear, coherent, circumstantial, flight of ideas Thought content: reality based without delusions Suicidal thought are: denied Homicidal thoughts are: denied Hallucinations: denies auditory, denies visual Cognition: memory grossly intact, attention grossly intact, language grossly intact Intelligence estimated to be: consistent with level of education Insight: fair Judgement: fair Impression Pt denies ongoing delusions and paranoia today. Reports Risperdal 2.5mg qHS has been very helpful for mood and clarity of thought. Notices in himself increased irritability with visits from family. Family meeting with mother scheduled for Sunday. 72-hour notice expires 12/09 - patient informed of ability to rescind if willing which he does not immediately decline. Due to self-identified and staff-reported decompensation with family, patient remains at high risk for harm to self or others if discharged too quickly. Requires inpatient mental health treatment until stability of mood and thought process can be adequately observed. Plan (1) Bipolar 1 disorder As per JAE Banks---12/01/17 - Bipolar 1 Disorder single episode manic with psychotic features - Mood stabilizer is indicated. Risperdal 1mg at HS. Discussed with the patient the risks/benefits/alternative treatments were reviewed re: Risperdal for mood and/or psychosis. Discussion included but was not limited to metabolic side effects, risks of TD and suicidal thoughts. Baseline AIMS=0. Baseline metabolic labs were ordered. - Hold Adderall and Wellbutrin - encourage group therapy participation targeting coping mechanisms for stress and issues with alcohol, cannabis and stimulant misuse - recommend as OP Quotient testing for definitive ADHD diagnosis - meet with social welfare research worker for safety plan discussion - family meeting encouraged -suspect stimulant misuse, will engage family to help with pill counts and check against last fill per PDMP. 12/02--increase Risperdal to 1 mg BID this am, prn Haldol and Ativan as ordered. Consider 302 if escalates again. 12/03--continue risperidone 1 mg twice daily, and add a 1 mg as needed dose for psychosis/marge. --Fasting lipid profile and glucose performed yesterday, results reviewed and all were within normal limits. --Schedule family meeting once patient is more reality based and able to tolerate it. --Coordinate care with outpatient psychiatrist, Dr. Newell (message sent via EMR ). Wellbutrin and Adderall discontinued on admission. --Educated the patient about the diagnosis of bipolar disorder type I, and gave him an up-to-date patient handout about bipolar disorder. 12/04--Continue risperidone, got 1mg prn yesterday. Consolidate to bedtime prior to discharge. --Schedule family meeting as psychosis improving. Provide psychoeducation about diagnosis and treatment recommendations. --Family visiting today and have been asked to bring in his Wellbutrin and Adderall for pill count and safe disposal. --Psychosis improving and has been in good behavioral control, so will discontinue medically necessary private room. 12/05 - Increase risperdal to 2.5 mg and shift all to HS 12/06 - Continue current meds 12/07 - Continue Risperdal 2.5mg qHS - Family meeting with mother on Sun, 12/09 - 72-hour notice to 12/09 - patient aware of ability to rescind. 12/08 Patient rescinded 72 hr notice Continue current meds (2) Cannabis abuse - Advise patient to discontinue use - Encourage group participation to help patient learn other ways to cope with stress. Dr. South attempted 5+ min brief intervention on 12/01/17. He remains in precontemplation stage with regards to change. Impact of use on mood disorder reviewed. He is agreeable to resume outpatient therapy to address mood disorder and use. 12/03--continue to educate on the risks of continued substance abuse and recommendations for abstinence. Re-refer to [facility] counseling for substance abuse treatment. 12/04-- Brief intervention was offered and accepted. Intervention was greater than 5 min in length. Brief interventions include: 1. Assess Readiness to Quit, 2. Advise: Help Patient to Reduce or Abstain from Alcohol, 3. Agree: Set Specific, Feasible Goals, 4. Assist: Anticipate barriers, Problem-Solving Solutions. Social work to 5. Arrange: Referrals to appropriate treatment. Summary of intervention: The patient is in contemplation stage with regards to transtheoretical model of change. The patient is advised to decrease alcohol consumption due to depressant effects and risk of interactions with prescription medications. The patient agreed to abstain and return to substance abuse counseling, and will be provided with recovery materials to continue to education self on how to cope with their condition without drinking. --Re-refer to [facility]. Patient working on plan to talk with family about need to abstain, asking siblings not to smoke pot in front of him, and plan to remove drug paraphernalia from his room. (3) Nicotine abuse The patient is a current smoker but does not want to quit and declines brief intervention for tobacco cessation. Accepted nicotine replacement patch. Discharge / Aftercare Planning Primary Care Physician: Name: Leeann Davis - appointment to be scheduled as needed Appointment Notes: [facility] [address], [place] [address] Psychiatrist: Name: [facility] - Dr. Newell Date of Appointment: Dec 13, 2017 Time of Appointment: 2:40 pm Appointment Notes: [address] [facility], [address], [place] [address] Therapist: Name: Daniel Garcia Date of Appointment: Dec 28, 2017 Time of Appointment: 10:30 am Appointment Notes: [address] [facility] [address] [address] [facility] [address] Electro Optics Engineer: Name: None Visit Code E&M Code: 71734 Inventory Assets Strengths: smart and quick thinker Needs: future goal direction, family support,income Risk Factors Assessment Male: Yes /single/: No Higher / Fall in social status: No Access to guns: No Mental Health Diagnoses: Yes Substance use disorders: No Previous attempt: No Previous psychiatric stay: No Hopelessness: No Smoker: Yes Protective Factors Assessment Sabianist beliefs: No : No Responsible for young children: No Employed: No Stable relationships: No Supportive family: No Good rapport with provider: Yes Absence of risk factors above: No Data Vital Signs Last 24 Hrs: Date Time Temp Pulse Resp B/P (MAP) Pulse Ox O2 Delivery O2 Flow Rate FiO2 12/08/17 06:28 36.5 106 18 144/74 99 128/78 Meds Administered Last 24 Hrs: Meds Administered (Past 24Hrs) Medications (Trade) Dose Ordered Sig/Reuben Route Start Time Stop Time Status Last Admin Dose Admin Risperidone (Risperdal M Tab) 2.5 mg HS PO 12/06/17 22:00 01/05/18 21:59 12/07/17 21:24 2.5 MG
[2017-12-08] MEDS: RISPERIDONE ODT 1MG PO SCH (21:14)
[2017-12-09 06:29] VITALS: BP_SYST 126; BP_SYST 138; BP_DIAS 79; BP_DIAS 82; PULSE 111; PULSE 76; TEMP 36.5
[2017-12-09] MEDS: NICOTINE 14 MG/24 HR TDSY TD SCH (08:36)
--- NOTE | 2017-12-09 12:01 | Psychiatric Progress Notes ---
Progress Note Date of Service Dec 09, 2017. Interval History Patient is a 22 year old white male admitted on 11/30/17 on a 201 voluntary commitment for psychiatric evaluation and treatment of acute onset marge. He had not slept in preparation to take the [employer] computerized test but was noted to be disorganized at [facility] so police were notified according to safety protocol. Chief Complaint "Confused. ". Subjective Patient was seen & assessed interval progress reviewed with Treatment Team. The patient had a second meeting with his parents today. He felt like his father was accepting of his reports/experiences and wanting to move forward. He felt like his mother was anxious and controlling, and now worrying that living with her will not be good for him. He continues to describe distorted thoughts, "trying to connect the dots" and admitting to thinking that people around him are not who they say they are. He thinks one of the social workers is someone from his [employer], and that a recently discharged peer resembled his "half adopted brother". He denies hearing voices but saying that at times he is hearing ringing in his head. At times he says he is sitting and staring at the TV "and other people don't get what I'm doing" as if he is having a special relationship with the TV. he denies visual hallucinations. He feels that the increase in risperdal last night has given him "a little more control" over his thoughts, but was tired upon awakening this AM. He otherwise denies side effects Review of Systems Constitutional: + fatigue ENT: No hearing loss, No unusual epistaxis, No nasal symptoms, No sore throat, No tinnitus, No dental problems, No trouble swallowing, No problem reported Respiratory: No cough, No sputum, No wheezing, No shortness of breath, No dyspnea on exertion, No dyspnea at rest, No hemoptysis, No problem reported Cardiovascular: No chest pain, No orthopnea, No PND, No edema, No claudication , No palpitations, No problem reported Abdomen: No pain, No nausea, No vomiting, No diarrhea, No constipation, No GI bleeding, No problem reported Musculoskeletal: No joint pain, No muscle pain, No swelling, No calf pain, No problem reported Neurologic: No memory loss, No paralysis, No weakness, No numbness/tingling, No vertigo, No balance problems, No problem reported Psychiatric: + problem reported (trying to "connect the dots", deluded about others' identities) Integumentary: No rash, No itch, No new/changing skin lesions, No color change , No bleeding, No problem reported Sleep Information Total Hours of Sleep: 6.25 Meal Information Percent of Breakfast Consumed: 100 Percent of Lunch Consumed: 100 Percent of Dinner Consumed: 100 Mental Status Exam During interview pt is: alert and oriented, cooperative Appearance: appropriately dressed, appropriately groomed, other (wearing glasses, earring in left ear) Eye contact is: good Motor behavior is: steady gait & station, no abnormal motor movements Speech: normal in rate, rhythm & volume Affect: mood congruent, blunted, anxious Mood is: other Thought process: goal directed, clear, coherent, circumstantial, flight of ideas Thought content: reality based without delusions Suicidal thought are: denied Homicidal thoughts are: denied Hallucinations: denies auditory, denies visual Cognition: memory grossly intact, attention grossly intact, language grossly intact Intelligence estimated to be: consistent with level of education Insight: fair Judgement: fair Impression Still with distorted/delusional thoughts. Second meeting with parents has brought him to the point of thinking that mother will be a negative influence if he goes home to live with them. Encouraged to talk separately with his father about it. Have encouraged him to use prn's today when thoughts distorted, in addition to reality testing, and adjust daily dosing based on prn use. Plan (1) Bipolar 1 disorder As per JAE Banks---12/01/17 - Bipolar 1 Disorder single episode manic with psychotic features - Mood stabilizer is indicated. Risperdal 1mg at HS. Discussed with the patient the risks/benefits/alternative treatments were reviewed re: Risperdal for mood and/or psychosis. Discussion included but was not limited to metabolic side effects, risks of TD and suicidal thoughts. Baseline AIMS=0. Baseline metabolic labs were ordered. - Hold Adderall and Wellbutrin - encourage group therapy participation targeting coping mechanisms for stress and issues with alcohol, cannabis and stimulant misuse - recommend as OP Quotient testing for definitive ADHD diagnosis - meet with social security specialist for safety plan discussion - family meeting encouraged -suspect stimulant misuse, will engage family to help with pill counts and check against last fill per PDMP. 12/02--increase Risperdal to 1 mg BID this am, prn Haldol and Ativan as ordered. Consider 302 if escalates again. 12/03--continue risperidone 1 mg twice daily, and add a 1 mg as needed dose for psychosis/marge. --Fasting lipid profile and glucose performed yesterday, results reviewed and all were within normal limits. --Schedule family meeting once patient is more reality based and able to tolerate it. --Coordinate care with outpatient psychiatrist, Dr. Newell (message sent via EMR ). Wellbutrin and Adderall discontinued on admission. --Educated the patient about the diagnosis of bipolar disorder type I, and gave him an up-to-date patient handout about bipolar disorder. 12/04--Continue risperidone, got 1mg prn yesterday. Consolidate to bedtime prior to discharge. --Schedule family meeting as psychosis improving. Provide psychoeducation about diagnosis and treatment recommendations. --Family visiting today and have been asked to bring in his Wellbutrin and Adderall for pill count and safe disposal. --Psychosis improving and has been in good behavioral control, so will discontinue medically necessary private room. 12/05 - Increase risperdal to 2.5 mg and shift all to HS 12/06 - Continue current meds 12/07 - Continue Risperdal 2.5mg qHS - Family meeting with mother on Sun, 12/09 - 72-hour notice to 12/09 - patient aware of ability to rescind. 12/08 Patient rescinded 72 hr notice Continue current meds 12/09 - Risperdal increased to 3.5 mg last HS. Will continue and have encouraged use of prn's (2) Cannabis abuse - Advise patient to discontinue use - Encourage group participation to help patient learn other ways to cope with stress. Dr. South attempted 5+ min brief intervention on 12/01/17. He remains in precontemplation stage with regards to change. Impact of use on mood disorder reviewed. He is agreeable to resume outpatient therapy to address mood disorder and use. 12/03--continue to educate on the risks of continued substance abuse and recommendations for abstinence. Re-refer to [facility] counseling for substance abuse treatment. 12/04-- Brief intervention was offered and accepted. Intervention was greater than 5 min in length. Brief interventions include: 1. Assess Readiness to Quit, 2. Advise: Help Patient to Reduce or Abstain from Alcohol, 3. Agree: Set Specific, Feasible Goals, 4. Assist: Anticipate barriers, Problem-Solving Solutions. Social work to 5. Arrange: Referrals to appropriate treatment. Summary of intervention: The patient is in contemplation stage with regards to transtheoretical model of change. The patient is advised to decrease alcohol consumption due to depressant effects and risk of interactions with prescription medications. The patient agreed to abstain and return to substance abuse counseling, and will be provided with recovery materials to continue to education self on how to cope with their condition without drinking. --Re-refer to [facility]. Patient working on plan to talk with family about need to abstain, asking siblings not to smoke pot in front of him, and plan to remove drug paraphernalia from his room. (3) Nicotine abuse The patient is a current smoker but does not want to quit and declines brief intervention for tobacco cessation. Accepted nicotine replacement patch. Discharge / Aftercare Planning Primary Care Physician: Name: Leeann Davis - appointment to be scheduled as needed Appointment Notes: [address], [place] [address] Psychiatrist: Name: [facility] - Dr. Newell Date of Appointment: Dec 13, 2017 Time of Appointment: 2:40 pm Appointment Notes: [address] [facility], [address], [place] [address] Therapist: Name: Daniel Garcia Date of Appointment: Dec 28, 2017 Time of Appointment: 10:30 am Appointment Notes: [address] [place] [address] [address] [place] [address] Customer Support Executive: Name: None Visit Code E&M Code: 07271 Inventory Assets Strengths: smart and quick thinker Needs: future goal direction, family support,income Risk Factors Assessment Male: Yes /single/: No Higher / Fall in social status: No Access to guns: No Mental Health Diagnoses: Yes Substance use disorders: No Previous attempt: No Previous psychiatric stay: No Hopelessness: No Smoker: Yes Protective Factors Assessment Faith beliefs: No : No Responsible for young children: No Employed: No Stable relationships: No Supportive family: No Good rapport with provider: Yes Absence of risk factors above: No Data Vital Signs Last 24 Hrs: Date Time Temp Pulse Resp B/P (MAP) Pulse Ox O2 Delivery O2 Flow Rate FiO2 12/09/17 06:29 36.5 76 18 126/79 111 138/82 Meds Administered Last 24 Hrs: Meds Administered (Past 24Hrs) Medications (Trade) Dose Ordered Sig/Reuben Route Start Time Stop Time Status Last Admin Dose Admin Risperidone (Risperdal M Tab) 3.5 mg HS PO 12/08/17 22:00 01/05/18 21:59 12/08/17 21:14 3.5 MG Lab Results Last 24 Hrs: 11/30/17 13:08 Red Blood Count 5.29, Mean Corpuscular Volume 82.6, Mean Corpuscular Hemoglobin 30.1, Mean Corpuscular Hemoglobin Concent 36.4, Mean Platelet Volume 8.8, Neutrophils (%) (Auto) 73.7, Lymphocytes (%) (Auto) 17.4, Monocytes (%) (Auto) 8.1, Eosinophils (%) (Auto) 0.1, Basophils (%) (Auto) 0.3, Neutrophils # (Auto) 5.11, Lymphocytes # (Auto) 1.21, Monocytes # (Auto) 0.56, Eosinophils # (Auto) 0.01, Basophils # (Auto) 0.02 11/30/17 13:08 Test 11/30/17 12:19 11/30/17 12:20 11/30/17 13:08 12/01/17 12:40 Bedside Glucose 103 mg/dl (70-99) Urine Color YELLOW Urine Appearance CLEAR (CLEAR) Urine pH 7.5 (4.5-7.5) Urine Specific [place] 1.011 (1.000-1.030) Urine Protein NEG (NEG) Urine Glucose (UA) NEG (NEG) Urine Ketones 1+ (NEG) Urine Occult Blood NEG (NEG) Urine Nitrite NEG (NEG) Urine Bilirubin NEG (NEG) Urine Urobilinogen NEG (NEG) Urine Leukocyte Esterase NEG (NEG) Urine Opiates Screen NEG (NEG) Urine Methadone, Qualitative NEG (NEG) Urine Barbiturates NEG (NEG) Urine Phencyclidine (PCP) Level NEG (NEG) Ur Amphetamine/Methamphetamine NEG (NEG) Urine MDE-amphetamine (MDEA) negative Ur Methylenedioxyamphetamine (MDA) negative MDMA (Ecstasy) Screen POS (NEG) Methylenedioxymethamphetamine (MDMA negative Urine Benzodiazepines Screen NEG (NEG) Urine Cocaine Metabolite NEG (NEG) Urine Marijuana (THC) POS (NEG) Urine Marijuana (THC Carboxy Acid) 476 NG/ML (CUTOFF=5) White Blood Count 6.94 K/uL (4.8-10.8) Red Blood Count 5.29 M/uL (4.7-6.1) Hemoglobin 15.9 g/dL (14.0-18.0) Hematocrit 43.7 % (42-52) Mean Corpuscular Volume 82.6 fL (80-100) Mean Corpuscular Hemoglobin 30.1 pg (25-34) Mean Corpuscular Hemoglobin Concent 36.4 g/dl (32-36) Platelet Count 255 K/uL (130-400) Mean Platelet Volume 8.8 fL (7.4-10.4) Neutrophils (%) (Auto) 73.7 % Lymphocytes (%) (Auto) 17.4 % Monocytes (%) (Auto) 8.1 % Eosinophils (%) (Auto) 0.1 % Basophils (%) (Auto) 0.3 % Neutrophils # (Auto) 5.11 K/uL (1.4-6.5) Lymphocytes # (Auto) 1.21 K/uL (1.2-3.4) Monocytes # (Auto) 0.56 K/uL (0.11-0.59) Eosinophils # (Auto) 0.01 K/uL (0-0.5) Basophils # (Auto) 0.02 K/uL (0-0.2) RDW Standard Deviation 37.7 fL (36.4-46.3) RDW Coefficient of Variation 12.6 % (11.5-14.5) Immature Granulocyte % (Auto) 0.4 % Immature Granulocyte # (Auto) 0.03 K/uL (0.00-0.02) Anion Gap 9.0 mmol/L (3-11) Est Creatinine Clear Calc Drug Dose 136.2 ml/min Estimated GFR () 123.3 Estimated GFR (Non- 106.4 BUN/Creatinine Ratio 6.8 (10-20) Calcium Level 9.5 mg/dl (8.5-10.1) Total Bilirubin 0.5 mg/dl (0.2-1) Direct Bilirubin 0.1 mg/dl (0-0.2) Aspartate Amino Transf (AST/SGOT) 16 U/L (15-37) Alanine Aminotransferase (ALT/SGPT) 25 U/L (12-78) Alkaline Phosphatase 57 U/L (45-117) Total Protein 8.0 gm/dl (6.4-8.2) Albumin 4.8 gm/dl (3.4-5.0) Globulin 3.2 gm/dl (2.5-4.0) Albumin/Globulin Ratio 1.5 (0.9-2) Thyroid Stimulating Hormone (TSH) 0.745 uIu/ml (0.300-4.500) Ethyl Alcohol mg/dL < 3.0 mg/dl (0-3) Test 12/02/17 06:21 Fasting Glucose 92 mg/dl (70-99) Triglycerides Level 86 mg/dl (0-150) Cholesterol Level 180 mg/dl (0-200) HDL Cholesterol 43 mg/dl LDL Cholesterol, Calculated 120 mg/dl VLDL Cholesterol, Calculated 17 mg/dl Cholesterol/HDL Ratio 4.2
[2017-12-09] MEDS: RISPERIDONE ODT 1MG PO SCH (21:22)
[2017-12-10 06:43] VITALS: BP_SYST 134; BP_SYST 139; BP_DIAS 65; BP_DIAS 89; PULSE 106; PULSE 64; TEMP 36.5
[2017-12-10] MEDS: NICOTINE 14 MG/24 HR TDSY TD SCH (08:49)
--- NOTE | 2017-12-10 10:42 | Psychiatric Progress Notes ---
Progress Note Date of Service Dec 10, 2017. Interval History Patient is a 22 year old white male admitted on 11/30/17 on a 201 voluntary commitment for psychiatric evaluation and treatment of acute onset marge. He had not slept in preparation to take the [employer] computerized test but was noted to be disorganized at [facility] so police were notified according to safety protocol. Chief Complaint "I think my default is just to believe everything I see and think is reality". Subjective Patient was seen & assessed interval progress reviewed with Treatment Team. Staff reports the patient had a family meeting yesterday with his mother, father , and brother. Patient reported to staff that the meeting went well, but patient is noted to have been visibly upset at various times during the meeting. Staff also reports an incident over the weekend in which the patient had a tearful, emotional outburst and complained of seeing patterns in the lights. Pt was seen today to assess progress since admission. Pt states he is feeling "fine" and that "everything is good." However, as the conversation continues, he reports ongoing "confusion". Pt states he has noticed ringing in his ear which he feels, "there must be some kind of meaning behind it". He explains that the ringing occurs in separate ears depending on what is going on , "but I haven't quite figured it out yet." Pt states he had an incident recently in which he was watching tv and "there were little things going on where I just felt that I was meant to be watching this." Spoke with patient about availability of prn Risperdal for times like these in which he feels confused. Pt continues to deny the need for prns despite reports of these cognitive distortions. Pt states he did not sleep well last night saying, "I just had a lot of thoughts I didn't know what to do with." He denies any issues with appetite. Denies SI/HI. Review of Systems Psych: denies symptoms other than stated above Constitutional: denied EENT: reports tinnitus Cardiovascular: denied GI: denied Neurologic: denied Remainder of 10 body systems also reviewed and denied other than noted above. Sleep Information Total Hours of Sleep: 4.25 Meal Information Percent of Breakfast Consumed: 100 Percent of Lunch Consumed: 100 Percent of Dinner Consumed: 100 Mental Status Exam During interview pt is: alert and oriented, cooperative Appearance: appropriately dressed, appropriately groomed, other (wearing glasses, earring in left ear) Eye contact is: good Motor behavior is: steady gait & station, no abnormal motor movements Speech: normal in rate, rhythm & volume, other (hyperverbal, a bit disorganized ) Affect: mood congruent, blunted, anxious Mood is: other Thought process: goal directed, clear, coherent, circumstantial, flight of ideas (ideas of reference) Thought content: cognitive distortions (ringing in ears, "must be some meaning behind it"), ideas of reference Suicidal thought are: denied Homicidal thoughts are: denied Hallucinations: denies auditory, denies visual Cognition: memory grossly intact, attention grossly intact, language grossly intact Intelligence estimated to be: consistent with level of education Insight: fair Judgement: fair Impression Pt reports ongoing delusions and cognitive distortions. Continues to reports family is overwhelming, but is unsure of where else he could live after discharge. Pt reports feeling irritable even with visits from his aunt and cousins; but feels it is because the conversation changed to talking about his mom. Pt is again encouraged to take prns during times of confusion; but continues to deny need or benefit. Pt encouraged to use reality testing as a coping mechanisms during these times, and felt open to the idea. Pt requires ongoing inpatient mental health treatment as he continues to display delusions and cognitive distortions with no interest in recommendations for prn medications. Pt likely to decompensate if returning to home, with stress of family members ongoing, without proper mitigation for risk factors. Until these can be adequately address, possible risk of harm to self or others is ongoing. Plan (1) Bipolar 1 disorder As per JAE Banks---12/01/17 - Bipolar 1 Disorder single episode manic with psychotic features - Mood stabilizer is indicated. Risperdal 1mg at HS. Discussed with the patient the risks/benefits/alternative treatments were reviewed re: Risperdal for mood and/or psychosis. Discussion included but was not limited to metabolic side effects, risks of TD and suicidal thoughts. Baseline AIMS=0. Baseline metabolic labs were ordered. - Hold Adderall and Wellbutrin - encourage group therapy participation targeting coping mechanisms for stress and issues with alcohol, cannabis and stimulant misuse - recommend as OP Quotient testing for definitive ADHD diagnosis - meet with psych social worker for safety plan discussion - family meeting encouraged -suspect stimulant misuse, will engage family to help with pill counts and check against last fill per PDMP. 12/02--increase Risperdal to 1 mg BID this am, prn Haldol and Ativan as ordered. Consider 302 if escalates again. 12/03--continue risperidone 1 mg twice daily, and add a 1 mg as needed dose for psychosis/marge. --Fasting lipid profile and glucose performed yesterday, results reviewed and all were within normal limits. --Schedule family meeting once patient is more reality based and able to tolerate it. --Coordinate care with outpatient psychiatrist, Dr. Newell (message sent via EMR ). Wellbutrin and Adderall discontinued on admission. --Educated the patient about the diagnosis of bipolar disorder type I, and gave him an up-to-date patient handout about bipolar disorder. 12/04--Continue risperidone, got 1mg prn yesterday. Consolidate to bedtime prior to discharge. --Schedule family meeting as psychosis improving. Provide psychoeducation about diagnosis and treatment recommendations. --Family visiting today and have been asked to bring in his Wellbutrin and Adderall for pill count and safe disposal. --Psychosis improving and has been in good behavioral control, so will discontinue medically necessary private room. 12/05 - Increase risperdal to 2.5 mg and shift all to HS 12/06 - Continue current meds 12/07 - Continue Risperdal 2.5mg qHS - Family meeting with mother on Sun, 12/09 - 72-hour notice to 12/09 - patient aware of ability to rescind. 12/08 Patient rescinded 72 hr notice Continue current meds 12/09 - Risperdal increased to 3.5 mg last HS. Will continue and have encouraged use of prn's 12/10 - Continue Risperdal 3.5mg qHS. Discussed benefit of prn's again; pt encouraged to request during times of "confusion" to assist with reality testing. (2) Cannabis abuse - Advise patient to discontinue use - Encourage group participation to help patient learn other ways to cope with stress. Dr. South attempted 5+ min brief intervention on 12/01/17. He remains in precontemplation stage with regards to change. Impact of use on mood disorder reviewed. He is agreeable to resume outpatient therapy to address mood disorder and use. 12/03--continue to educate on the risks of continued substance abuse and recommendations for abstinence. Re-refer to [facility] for substance abuse treatment. 12/04-- Brief intervention was offered and accepted. Intervention was greater than 5 min in length. Brief interventions include: 1. Assess Readiness to Quit, 2. Advise: Help Patient to Reduce or Abstain from Alcohol, 3. Agree: Set Specific, Feasible Goals, 4. Assist: Anticipate barriers, Problem-Solving Solutions. Social work to 5. Arrange: Referrals to appropriate treatment. Summary of intervention: The patient is in contemplation stage with regards to transtheoretical model of change. The patient is advised to decrease alcohol consumption due to depressant effects and risk of interactions with prescription medications. The patient agreed to abstain and return to substance abuse counseling, and will be provided with recovery materials to continue to education self on how to cope with their condition without drinking. --Re-refer to [facility]. Patient working on plan to talk with family about need to abstain, asking siblings not to smoke pot in front of him, and plan to remove drug paraphernalia from his room. (3) Nicotine abuse The patient is a current smoker but does not want to quit and declines brief intervention for tobacco cessation. Accepted nicotine replacement patch. Discharge / Aftercare Planning Primary Care Physician: Name: Leeann Davis - appointment to be scheduled as needed Appointment Notes: [address], [place] [address] Psychiatrist: Name: [facility] Carissa Newell Date of Appointment: Dec 13, 2017 Time of Appointment: 2:40 pm Appointment Notes: [address], [place] [address] Therapist: Name: [place] Fili Garcia Date of Appointment: Dec 28, 2017 Time of Appointment: 10:30 am Appointment Notes: [address] [facility] [address] Plate Molder: Name: None Visit Code E&M Code: 76110 Inventory Assets Strengths: smart and quick thinker Needs: future goal direction, family support,income Risk Factors Assessment Male: Yes /single/: No Higher / Fall in social status: No Access to guns: No Mental Health Diagnoses: Yes Substance use disorders: No Previous attempt: No Previous psychiatric stay: No Hopelessness: No Smoker: Yes Protective Factors Assessment Sikh beliefs: No : No Responsible for young children: No Employed: No Stable relationships: No Supportive family: No Good rapport with provider: Yes Absence of risk factors above: No Data Vital Signs Last 24 Hrs: Date Time Temp Pulse Resp B/P (MAP) Pulse Ox O2 Delivery O2 Flow Rate FiO2 12/10/17 06:43 36.5 64 16 134/89 106 139/65 Meds Administered Last 24 Hrs: Meds Administered (Past 24Hrs) Medications (Trade) Dose Ordered Sig/Reuben Route Start Time Stop Time Status Last Admin Dose Admin Risperidone (Risperdal M Tab) 3.5 mg HS PO 12/08/17 22:00 01/05/18 21:59 12/09/17 21:22 3.5 MG
[2017-12-10] MEDS: RISPERIDONE ODT 1MG PO PRN (16:35)
[2017-12-10] MEDS: RISPERIDONE ODT 1MG PO SCH (21:11)
[2017-12-11 06:51] VITALS: BP_SYST 113; BP_SYST 119; BP_DIAS 65; BP_DIAS 77; PULSE 57; PULSE 69; TEMP 36.5
--- NOTE | 2017-12-11 08:05 | Psychiatric Progress Notes ---
Progress Note Date of Service Dec 11, 2017. Interval History Patient is a 22 year old white male admitted on 11/30/17 on a 201 voluntary commitment for psychiatric evaluation and treatment of acute onset marge. He had not slept in preparation to take the [employer] computerized test but was noted to be disorganized at [facility] so police were notified according to safety protocol. Chief Complaint "I do not know, jasson confused ". Subjective Patient was seen & assessed interval progress reviewed with Nursing. Staff report he has been paranoid, disorganized, with delusions of reference. He could not find a book he was reading, and accused staff of taking it, and accuse staff of hiding a newspaper from him. He was inappropriate and rude towards a peer in group, and was asked to excuse himself from group and take a as needed of risperidone. He initially declined, stating he did not trust staff , but eventually took the medication. He had to be redirected regarding poor boundaries with another patient, who he repeatedly was hugging. He appears confused with inappropriate laughter at times. He said he "felt like "I was a genius for a little while" while in group, and reported difficulty focusing in order to read. His aunt and mother visited last evening, and told staff that he appeared more delusional. He was upset after the visit, was tearful, and said that he felt he had to lie to his mother she does not know the real him, and feels he is a disappointment to her. With staff encouragement, he called his aunt to talk. On my assessment today, the patient states that he continues to struggle with paranoia and difficulty telling what is real and what is not. He says "I want to believe some things are real, even though I know they are not , and my family has their own things..." He tells a story about his sister coming in to visit, and seeing a female patient on the phone, which he believed was a set up "to throw me off," stating "why would she be calling a doctor when she is here? Her middle name is Karuna I think, and that is my ex-girlfriend's name..." He agrees that he continues to make connections that others do not see and that he has difficult explaining when asked. He continues to see patterns in the lights, and believes things in books and on TV are directed at him personally. He says a female peer gave him a book written by the Martha Bautista to read, and he believes that the book was "tweaked just for me." He initially states medication is helping, then he says he is not sure if it is helping, because he felt paranoid and was thinking about the above delusions just after taking the medication. He is frustrated by his interactions with his family, says his sister told him he was "still crazy," and says they do not understand what he is going through. He has been trying to meditate in order to manage his delusional thoughts, but states "I have been down that road before, and it can lead to me meditating just to stay in that delusional place." Discussed the concept of reality testing, and talking with staff when he feels his thoughts are confused or he is not sure if they are reality based. He is frustrated with his ongoing symptoms, stating that sometimes he "just wants to give up, it feels hopeless at times, too big to wrap my head around." He describes his mood is "flat, a little bit numb," but denies suicidal thoughts, homicidal thoughts, and auditory hallucinations. Sleep was disrupted last night , and appetite is good. Discussed the goal of using medication, his response thus far, and what to expect from the medication; he agreed to increasing his risperidone today. Sleep Information Total Hours of Sleep: 6.00 Meal Information Percent of Breakfast Consumed: 100 Percent of Lunch Consumed: 90 Percent of Dinner Consumed: 100 Mental Status Exam During interview pt is: alert and oriented, cooperative Appearance: appropriately dressed, appropriately groomed, other (wearing glasses, earring in left ear) Eye contact is: good Motor behavior is: steady gait & station, no abnormal motor movements Speech: normal in rate, rhythm & volume, other (hyperverbal, a bit disorganized ) Affect: mood congruent, blunted Mood is: other ("Flat, a little bit numb") Thought process: goal directed Thought content: paranoid, cognitive distortions, delusions, ideas of reference , persecution, hopelessness Suicidal thought are: denied Homicidal thoughts are: denied Hallucinations: denies auditory, denies visual Cognition: memory grossly intact, attention grossly intact, language grossly intact Intelligence estimated to be: consistent with level of education Insight: fair Judgement: fair Impression Low mood and psychotic symptoms continue, with delusions, paranoia and ideas of reference. He has been resistant to taking additional doses of risperidone, but is agreeable to increasing it today. His interactions with his family has been overwhelming, and he is struggling with reality testing. He requires ongoing inpatient treatment as he continues to display delusions and cognitive distortions, is unable to reality test, and mood remains depressed. He would be very likely to decompensate if he left the hospital at this time, and remains at risk of harm to himself. Plan (1) Bipolar 1 disorder As per JAE Banks---12/01/17 - Bipolar 1 Disorder single episode manic with psychotic features - Mood stabilizer is indicated. Risperdal 1mg at HS. Discussed with the patient the risks/benefits/alternative treatments were reviewed re: Risperdal for mood and/or psychosis. Discussion included but was not limited to metabolic side effects, risks of TD and suicidal thoughts. Baseline AIMS=0. Baseline metabolic labs were ordered. - Hold Adderall and Wellbutrin - encourage group therapy participation targeting coping mechanisms for stress and issues with alcohol, cannabis and stimulant misuse - recommend as OP Quotient testing for definitive ADHD diagnosis - meet with renal social worker for safety plan discussion - family meeting encouraged -suspect stimulant misuse, will engage family to help with pill counts and check against last fill per PDMP. 12/02--increase Risperdal to 1 mg BID this am, prn Haldol and Ativan as ordered. Consider 302 if escalates again. 12/03--continue risperidone 1 mg twice daily, and add a 1 mg as needed dose for psychosis/marge. --Fasting lipid profile and glucose performed yesterday, results reviewed and all were within normal limits. --Schedule family meeting once patient is more reality based and able to tolerate it. --Coordinate care with outpatient psychiatrist, Dr. Newell (message sent via EMR ). Wellbutrin and Adderall discontinued on admission. --Educated the patient about the diagnosis of bipolar disorder type I, and gave him an up-to-date patient handout about bipolar disorder. 12/04--Continue risperidone, got 1mg prn yesterday. Consolidate to bedtime prior to discharge. --Schedule family meeting as psychosis improving. Provide psychoeducation about diagnosis and treatment recommendations. --Family visiting today and have been asked to bring in his Wellbutrin and Adderall for pill count and safe disposal. --Psychosis improving and has been in good behavioral control, so will discontinue medically necessary private room. 12/05 - Increase risperdal to 2.5 mg and shift all to HS 12/06 - Continue current meds 12/07 - Continue Risperdal 2.5mg qHS - Family meeting with mother on Sun, 12/09 - 72-hour notice to 12/09 - patient aware of ability to rescind. 12/08 - Patient rescinded 72 hr notice - Continue current meds 12/09 - Risperdal increased to 3.5 mg last HS. Will continue and have encouraged use of prn's 12/10 - Continue Risperdal 3.5mg qHS. Discussed benefit of prn's again; pt encouraged to request during times of "confusion" to assist with reality testing. 12/11 -Increase risperidone 2.5 mg every morning and 4 mg nightly, and continue 1 mg as needed dose. Reviewed expectations of what the medication can do for him. -Encourage patient to reality test with staff. (2) Cannabis abuse - Advise patient to discontinue use - Encourage group participation to help patient learn other ways to cope with stress. Dr. South attempted 5+ min brief intervention on 12/01/17. He remains in precontemplation stage with regards to change. Impact of use on mood disorder reviewed. He is agreeable to resume outpatient therapy to address mood disorder and use. 12/03--continue to educate on the risks of continued substance abuse and recommendations for abstinence. Re-refer to [facility] for substance abuse treatment. 12/04-- Brief intervention was offered and accepted. Intervention was greater than 5 min in length. Brief interventions include: 1. Assess Readiness to Quit, 2. Advise: Help Patient to Reduce or Abstain from Alcohol, 3. Agree: Set Specific, Feasible Goals, 4. Assist: Anticipate barriers, Problem-Solving Solutions. Social work to 5. Arrange: Referrals to appropriate treatment. Summary of intervention: The patient is in contemplation stage with regards to transtheoretical model of change. The patient is advised to decrease alcohol consumption due to depressant effects and risk of interactions with prescription medications. The patient agreed to abstain and return to substance abuse counseling, and will be provided with recovery materials to continue to education self on how to cope with their condition without drinking. --Re-refer to [facility]. Patient working on plan to talk with family about need to abstain, asking siblings not to smoke pot in front of him, and plan to remove drug paraphernalia from his room. (3) Nicotine abuse The patient is a current smoker but does not want to quit and declines brief intervention for tobacco cessation. Accepted nicotine replacement patch. Discharge / Aftercare Planning Primary Care Physician: Name: Leeann Davis - appointment to be scheduled as needed Appointment Notes: [address], [place] [address] Psychiatrist: Name: Shawn Newell Date of Appointment: Dec 13, 2017 Time of Appointment: 2:40 pm Appointment Notes: [address], [place] [address] Therapist: Name: Daniel Garcia Date of Appointment: Dec 28, 2017 Time of Appointment: 10:30 am Appointment Notes: [address] [facility] [address] [address] Trouble Shooter: Name: None Visit Code E&M Code: 82240 Inventory Assets Strengths: smart and quick thinker Needs: future goal direction, family support,income Risk Factors Assessment Male: Yes : Yes /single/: Yes Higher / Fall in social status: No Access to guns: No Health problems: No Mental Health Diagnoses: Yes Substance use disorders: No Previous attempt: No Family history of suicide: No Previous psychiatric stay: No Hopelessness: Yes Smoker: Yes Protective Factors Assessment Jewish beliefs: No : No Responsible for young children: No Employed: No Stable relationships: No Supportive family: Yes Good rapport with provider: Yes Absence of risk factors above: No Data Vital Signs Last 24 Hrs: Date Time Temp Pulse Resp B/P (MAP) Pulse Ox O2 Delivery O2 Flow Rate FiO2 12/11/17 06:51 36.5 57 16 113/65 69 119/77
[2017-12-11] MEDS: NICOTINE 14 MG/24 HR TDSY TD SCH (08:40)
[2017-12-11] MEDS ORDERED: RISPERIDONE ODT 0.5MG PO ONE (09:15)
[2017-12-11] MEDS: RISPERIDONE ODT 1MG PO PRN (16:32)
[2017-12-11] MEDS: RISPERIDONE ODT 1MG PO SCH (21:29)
[2017-12-12 06:57] VITALS: BP_SYST 117; BP_SYST 139; BP_DIAS 69; BP_DIAS 79; PULSE 112; PULSE 63; TEMP 36.5
[2017-12-12] MEDS: RISPERIDONE ODT 0.5MG PO SCH (08:14)
[2017-12-12] MEDS: NICOTINE 14 MG/24 HR TDSY TD SCH (08:15)
--- NOTE | 2017-12-12 09:35 | Psychiatric Progress Notes ---
Progress Note Date of Service Dec 12, 2017. Interval History Patient is a 22 year old white male admitted on 11/30/17 on a 201 voluntary commitment for psychiatric evaluation and treatment of acute onset marge. He had not slept in preparation to take the [employer] computerized test but was noted to be disorganized at [facility] so police were notified according to safety protocol. Chief Complaint "Good, all things considered ". Subjective Patient was seen & assessed interval progress reviewed with Treatment Team. Staff report the patient's thinking continues to improve, and he reported feeling less confused and more focused yesterday. He is attending and participating in groups. He met with the social and political studies professor to discuss discharge planning, and talked about wanting to learn [employer], and uncertainty about where he wanted to live at discharge, at times stating he will return home with his parents, and at other times stating he wanted to live with his grandfather. He talked about using a guided imagery CD, and thinking that the voice on the CD was 1 of the hospital staff, referring to it as "psychological fuckery." He requested and received a 1 mg as needed dose of risperidone in the afternoon. He had a visit with his aunt and father which appeared to go well. Today, the patient states that he feels his thoughts are improving, feels less confused, and denies suicidal thoughts. He says that in group he feels he is "learning to be myself, learning to be vulnerable, I was a little scared, I think it is a self-esteem thing because I have never had good self-esteem." He worries that going home "will not be so great, there is probably better things I could do then going home, just service to others." He states he would rather focus on helping others, but if he goes home and is around his mother, she will want him to focus on taking care of himself. Discussed the importance of caring for himself and been stable so that he can reach other goals, including helping others. Explored options for volunteering, and he thinks that he could "go to NA meetings and support people through that, or go to grief groups to help people, I saw a brochure about that here." He said he is thinking about may be moving in with his ex-girlfriend, who lives in [place], [place], "but that is a tricky situation, not really counting on that." He also is considering moving back in with his grandfather, but states that at least initially after discharge, he will be living with family. He notes he is worried about his lack of structure and a daily schedule at home, as this leads to him being bored , which increases his desire to use drugs. Encouraged him to work on a specific schedule and ways to add structure in the days and weeks after discharge. Discussed the role of an outpatient case monitor, and he is willing for a referral. Sleep Information Total Hours of Sleep: 7.00 Meal Information Percent of Breakfast Consumed: 100 Percent of Lunch Consumed: 100 Percent of Dinner Consumed: 100 Mental Status Exam During interview pt is: alert and oriented, cooperative Appearance: appropriately dressed, appropriately groomed, other (wearing glasses, earring in left ear) Eye contact is: good Motor behavior is: steady gait & station, no abnormal motor movements Speech: normal in rate, rhythm & volume, other (hyperverbal, a bit disorganized ) Affect: mood congruent, anxious (Mildly) Mood is: other ("Good, all things considered.") Thought process: goal directed Thought content: cognitive distortions Suicidal thought are: denied Homicidal thoughts are: denied Hallucinations: denies auditory, denies visual Cognition: memory grossly intact, attention grossly intact, language grossly intact Intelligence estimated to be: consistent with level of education Insight: fair Judgement: fair Impression Mood and psychotic symptoms are improving slowly, but he continues to have ideas of reference and paranoia, with limited insight. Risperidone has been titrated up, and he is still utilizing as needed doses. We are working on discharge plans, including his concerns about his strained relationship with parents whom he lives with and lack of structure at home. We will refer him for outpatient case management, and encourage utilizing available programs to increase structure until he is more stable and can engage in volunteer service or employment. He requires inpatient treatment at this time as his progress thus far is tentative, he continues to have psychotic symptoms, and he remains at high risk for rapid decompensation and harm to himself if discharged prematurely. Plan (1) Bipolar 1 disorder As per JAE Banks---12/01/17 - Bipolar 1 Disorder single episode manic with psychotic features - Mood stabilizer is indicated. Risperdal 1mg at HS. Discussed with the patient the risks/benefits/alternative treatments were reviewed re: Risperdal for mood and/or psychosis. Discussion included but was not limited to metabolic side effects, risks of TD and suicidal thoughts. Baseline AIMS=0. Baseline metabolic labs were ordered. - Hold Adderall and Wellbutrin - encourage group therapy participation targeting coping mechanisms for stress and issues with alcohol, cannabis and stimulant misuse - recommend as OP Quotient testing for definitive ADHD diagnosis - meet with social and political studies professor for safety plan discussion - family meeting encouraged -suspect stimulant misuse, will engage family to help with pill counts and check against last fill per PDMP. 12/02--increase Risperdal to 1 mg BID this am, prn Haldol and Ativan as ordered. Consider 302 if escalates again. 12/03--continue risperidone 1 mg twice daily, and add a 1 mg as needed dose for psychosis/marge. --Fasting lipid profile and glucose performed yesterday, results reviewed and all were within normal limits. --Schedule family meeting once patient is more reality based and able to tolerate it. --Coordinate care with outpatient psychiatrist, Dr. Newell (message sent via EMR ). Wellbutrin and Adderall discontinued on admission. --Educated the patient about the diagnosis of bipolar disorder type I, and gave him an up-to-date patient handout about bipolar disorder. 12/04--Continue risperidone, got 1mg prn yesterday. Consolidate to bedtime prior to discharge. --Schedule family meeting as psychosis improving. Provide psychoeducation about diagnosis and treatment recommendations. --Family visiting today and have been asked to bring in his Wellbutrin and Adderall for pill count and safe disposal. --Psychosis improving and has been in good behavioral control, so will discontinue medically necessary private room. 12/05 - Increase risperdal to 2.5 mg and shift all to HS 12/06 - Continue current meds 12/07 - Continue Risperdal 2.5mg qHS - Family meeting with mother on Sun, 12/09 - 72-hour notice to 12/09 - patient aware of ability to rescind. 12/08 - Patient rescinded 72 hr notice - Continue current meds 12/09 - Risperdal increased to 3.5 mg last HS. Will continue and have encouraged use of prn's 12/10 - Continue Risperdal 3.5mg qHS. Discussed benefit of prn's again; pt encouraged to request during times of "confusion" to assist with reality testing. 12/11 -Increase risperidone to 0.5 mg every morning and 4 mg nightly, and continue 1 mg as needed dose. Reviewed expectations of what the medication can do for him. -Encourage patient to reality test with staff. 12/12 -Continue current medications, and work on discharge planning, including ways to manage strained relationship with parents, and additional structure at home. -Referred for outpatient case management. (2) Cannabis abuse - Advise patient to discontinue use - Encourage group participation to help patient learn other ways to cope with stress. Dr. South attempted 5+ min brief intervention on 12/01/17. He remains in precontemplation stage with regards to change. Impact of use on mood disorder reviewed. He is agreeable to resume outpatient therapy to address mood disorder and use. 12/03--continue to educate on the risks of continued substance abuse and recommendations for abstinence. Re-refer to [facility] for substance abuse treatment. 12/04-- Brief intervention was offered and accepted. Intervention was greater than 5 min in length. Brief interventions include: 1. Assess Readiness to Quit, 2. Advise: Help Patient to Reduce or Abstain from Alcohol, 3. Agree: Set Specific, Feasible Goals, 4. Assist: Anticipate barriers, Problem-Solving Solutions. Social work to 5. Arrange: Referrals to appropriate treatment. Summary of intervention: The patient is in contemplation stage with regards to transtheoretical model of change. The patient is advised to decrease alcohol consumption due to depressant effects and risk of interactions with prescription medications. The patient agreed to abstain and return to substance abuse counseling, and will be provided with recovery materials to continue to education self on how to cope with their condition without drinking. --Re-refer to [facility]. Patient working on plan to talk with family about need to abstain, asking siblings not to smoke pot in front of him, and plan to remove drug paraphernalia from his room. (3) Nicotine abuse The patient is a current smoker but does not want to quit and declines brief intervention for tobacco cessation. Accepted nicotine replacement patch. Discharge / Aftercare Planning Primary Care Physician: Name: Leeann - Dr Davis - appointment to be scheduled as needed Appointment Notes: [address], [place] [address] Psychiatrist: Name: [facility] Carissa Newell Date of Appointment: Dec 13, 2017 Time of Appointment: 2:40 pm Appointment Notes: [address], [address], [place] [address] Therapist: Name: Daniel Garcia Date of Appointment: Dec 28, 2017 Time of Appointment: 10:30 am Appointment Notes: [address] [place] [address] Mercantile Agent: Name: None Visit Code E&M Code: 38706 Inventory Assets Strengths: smart and quick thinker Needs: future goal direction, family support,income Risk Factors Assessment Male: Yes : Yes /single/: Yes Higher / Fall in social status: No Access to guns: No Health problems: No Mental Health Diagnoses: Yes Substance use disorders: No Previous attempt: No Family history of suicide: No Previous psychiatric stay: No Hopelessness: Yes Smoker: Yes Protective Factors Assessment Gnosticist beliefs: No : No Responsible for young children: No Employed: No Stable relationships: No Supportive family: Yes Good rapport with provider: Yes Absence of risk factors above: No Data Vital Signs Last 24 Hrs: Date Time Temp Pulse Resp B/P (MAP) Pulse Ox O2 Delivery O2 Flow Rate FiO2 12/12/17 06:57 36.5 63 16 117/69 112 139/79 Meds Administered Last 24 Hrs: Meds Administered (Past 24Hrs) Medications (Trade) Dose Ordered Sig/Reuben Route Start Time Stop Time Status Last Admin Dose Admin Risperidone (Risperdal M Tab) 4 mg HS PO 12/11/17 22:00 01/05/18 21:59 12/11/17 21:29 4 MG Risperidone (Risperdal M Tab) 0.5 mg QAM PO 12/12/17 09:00 01/11/18 08:59 12/12/17 08:14 0.5 MG Risperidone (Risperdal M Tab) 0.5 mg 0915 ONCE PO 12/11/17 09:15 12/11/17 09:16 DC 12/11/17 09:28 0.5 MG
[2017-12-12] MEDS: RISPERIDONE ODT 1MG PO PRN (19:40)
[2017-12-12] MEDS: RISPERIDONE ODT 1MG PO SCH (22:00)
[2017-12-13 06:40] VITALS: BP_SYST 111; BP_SYST 99; BP_DIAS 58; BP_DIAS 63; PULSE 60; PULSE 96; TEMP 36.8
[2017-12-13] MEDS: RISPERIDONE ODT 0.5MG PO SCH (07:31)
[2017-12-13] MEDS: NICOTINE 14 MG/24 HR TDSY TD SCH (07:33)
--- NOTE | 2017-12-13 09:35 | Psychiatric Progress Notes ---
Progress Note Date of Service Dec 13, 2017. Interval History Patient is a 22 year old white male admitted on 11/30/17 on a 201 voluntary commitment for psychiatric evaluation and treatment of acute onset marge. He had not slept in preparation to take the [employer] computerized test but was noted to be disorganized at [facility] so police were notified according to safety protocol. Chief Complaint "Yeah, the last few days have definitely been a bit roller-coastery". Subjective Patient was seen & assessed interval progress reviewed with Nursing. Staff reports the patient had a visit with his mother yesterday which went well. Pt has been more agreeable to prn Risperdal dosing. Referral to [facility] for case management has been completed. Pt was seen today to assess progress since admission. Pt states he has been doing well, but has had some "up's and down's " the last few days. Pt reports his "confusion" can cause changes in mood and he continues to try to focus on clearing his thoughts and getting better. Pt states, "I realized yesterday this isn't something I'm just going to get over, it's almost like a new beginning, it's not going away." Pt shares a lot of insight during this encounter as to his awareness of his thoughts and feelings and states, "I know the medications are helpful, and I think I understand a lot more when I need them." Pt states the prn Risperdal has been helpful for him. Discussed with patient plans after discharge, as it was passed along that the patient was previously planning to live in [place]. Pt states, "I'm still not sure what my long-term plan is, but I know it's probably not a good idea for me to be out in [place] - I'm trying to see if I can get the lease for next year terminated." Pt denies continuing SI/HI or other concerns for psychosis. Reviewed with patient plans for discharge tomorrow. He reports feeling anxious , but also feeling ready to leave. He denies other needs or concerns today. Review of Systems Psych: denies symptoms other than stated above Constitutional: denied Cardiovascular: denied GI: denied Neurologic: denied Remainder of 10 body systems also reviewed and denied other than noted above. Sleep Information Total Hours of Sleep: 6.45 Meal Information Percent of Breakfast Consumed: 100 Percent of Lunch Consumed: 100 Percent of Dinner Consumed: 100 Mental Status Exam During interview pt is: alert and oriented, cooperative Appearance: appropriately dressed, appropriately groomed, other (wearing glasses, earring in left ear) Eye contact is: good Motor behavior is: steady gait & station, no abnormal motor movements Speech: normal in rate, rhythm & volume, other (still mildly disorganized and vague in his responses) Affect: mood congruent, anxious (Mildly) Mood is: other ("Okay today") Thought process: goal directed (but a bit vague in explanations) Thought content: cognitive distortions (better able to recognize occurrence ) Suicidal thought are: denied Homicidal thoughts are: denied Hallucinations: denies auditory, denies visual Cognition: memory grossly intact, attention grossly intact, language grossly intact Intelligence estimated to be: consistent with level of education Insight: fair Judgement: fair Impression Pt reporting better insight as to cognitive distortions and better able to recognize when he requires prn Risperdal. Pt reports both scheduled and prn Risperdal has been helpful for his "confusion". 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 Pt has been referred to the [facility] for case management. Pt continues to endorse some disorganized thoughts and paranoia, but is better able to recognize and request medications appropriately. Discussed discharge tomorrow, patient is anxious but feels ready to leave. Discussed need to complete safety plan prior to discharge and suggested the patient reach out to staff for assistance with completion if necessary. Pt plans to call his parents today to determine an idea of discharge timeline. Plan (1) Bipolar 1 disorder As per JAE Banks---12/01/17 - Bipolar 1 Disorder single episode manic with psychotic features - Mood stabilizer is indicated. Risperdal 1mg at HS. Discussed with the patient the risks/benefits/alternative treatments were reviewed re: Risperdal for mood and/or psychosis. Discussion included but was not limited to metabolic side effects, risks of TD and suicidal thoughts. Baseline AIMS=0. Baseline metabolic labs were ordered. - Hold Adderall and Wellbutrin - encourage group therapy participation targeting coping mechanisms for stress and issues with alcohol, cannabis and stimulant misuse - recommend as OP Quotient testing for definitive ADHD diagnosis - meet with social service technician for safety plan discussion - family meeting encouraged -suspect stimulant misuse, will engage family to help with pill counts and check against last fill per PDMP. 12/02--increase Risperdal to 1 mg BID this am, prn Haldol and Ativan as ordered. Consider 302 if escalates again. 12/03--continue risperidone 1 mg twice daily, and add a 1 mg as needed dose for psychosis/marge. --Fasting lipid profile and glucose performed yesterday, results reviewed and all were within normal limits. --Schedule family meeting once patient is more reality based and able to tolerate it. --Coordinate care with outpatient psychiatrist, Dr. Newell (message sent via EMR ). Wellbutrin and Adderall discontinued on admission. --Educated the patient about the diagnosis of bipolar disorder type I, and gave him an up-to-date patient handout about bipolar disorder. 12/04--Continue risperidone, got 1mg prn yesterday. Consolidate to bedtime prior to discharge. --Schedule family meeting as psychosis improving. Provide psychoeducation about diagnosis and treatment recommendations. --Family visiting today and have been asked to bring in his Wellbutrin and Adderall for pill count and safe disposal. --Psychosis improving and has been in good behavioral control, so will discontinue medically necessary private room. 12/05 - Increase risperdal to 2.5 mg and shift all to HS 12/06 - Continue current meds 12/07 - Continue Risperdal 2.5mg qHS - Family meeting with mother on Sun, 12/09 - 72-hour notice to 12/09 - patient aware of ability to rescind. 12/08 - Patient rescinded 72 hr notice - Continue current meds 12/09 - Risperdal increased to 3.5 mg last HS. Will continue and have encouraged use of prn's 12/10 - Continue Risperdal 3.5mg qHS. Discussed benefit of prn's again; pt encouraged to request during times of "confusion" to assist with reality testing. 12/11 -Increase risperidone to 0.5 mg every morning and 4 mg nightly, and continue 1 mg as needed dose. Reviewed expectations of what the medication can do for him. -Encourage patient to reality test with staff. 12/12 -Continue current medications, and work on discharge planning, including ways to manage strained relationship with parents, and additional structure at home. -Referred for outpatient case management. 12/13 - Continue Risperdal 0.5mg qAM and 4mg qHS with 1mg prn dosing. Pt showing better insight as to benefits from and need for prn doses. - Encouraged patient to complete safety plan as anticipating discharge tomorrow if patient remains stable. - Will draft letter of support for termination of lease in [place] as requested by patient's parents. (2) Cannabis abuse - Advise patient to discontinue use - Encourage group participation to help patient learn other ways to cope with stress. Dr. South attempted 5+ min brief intervention on 12/01/17. He remains in precontemplation stage with regards to change. Impact of use on mood disorder reviewed. He is agreeable to resume outpatient therapy to address mood disorder and use. 12/03--continue to educate on the risks of continued substance abuse and recommendations for abstinence. Re-refer to [facility] for substance abuse treatment. 12/04-- Brief intervention was offered and accepted. Intervention was greater than 5 min in length. Brief interventions include: 1. Assess Readiness to Quit, 2. Advise: Help Patient to Reduce or Abstain from Alcohol, 3. Agree: Set Specific, Feasible Goals, 4. Assist: Anticipate barriers, Problem-Solving Solutions. Social work to 5. Arrange: Referrals to appropriate treatment. Summary of intervention: The patient is in contemplation stage with regards to transtheoretical model of change. The patient is advised to decrease alcohol consumption due to depressant effects and risk of interactions with prescription medications. The patient agreed to abstain and return to substance abuse counseling, and will be provided with recovery materials to continue to education self on how to cope with their condition without drinking. --Re-refer to [facility]. Patient working on plan to talk with family about need to abstain, asking siblings not to smoke pot in front of him, and plan to remove drug paraphernalia from his room. (3) Nicotine abuse The patient is a current smoker but does not want to quit and declines brief intervention for tobacco cessation. Accepted nicotine replacement patch. Discharge / Aftercare Planning Primary Care Physician: Name: Yadyer - Dr Davis - appointment to be scheduled as needed Appointment Notes: [address], [place] [address] Psychiatrist: Name: [facility] Dr. Newell Date of Appointment: Dec 19, 2017 Time of Appointment: 3:40 p.m. Appointment Notes: [address], [address], [place] [address] Therapist: Name: Daniel Garcia Date of Appointment: Dec 28, 2017 Time of Appointment: 10:30 am Appointment Notes: [address] [place] [address] Nurses Superintendent: Name: [facility] Date of Appointment: Dec 31, 2017 Time of Appointment: 10:00 a.m. Appointment Notes: [address], [place] [address] ( [facility]) Visit Code E&M Code: 98859 Inventory Assets Strengths: smart and quick thinker Needs: future goal direction, family support,income Risk Factors Assessment Male: Yes : Yes /single/: Yes Higher / Fall in social status: No Access to guns: No Health problems: No Mental Health Diagnoses: Yes Substance use disorders: No Previous attempt: No Family history of suicide: No Previous psychiatric stay: No Hopelessness: Yes Smoker: Yes Protective Factors Assessment Denominational beliefs: No : No Responsible for young children: No Employed: No Stable relationships: No Supportive family: Yes Good rapport with provider: Yes Absence of risk factors above: No Data Vital Signs Last 24 Hrs: Date Time Temp Pulse Resp B/P (MAP) Pulse Ox O2 Delivery O2 Flow Rate FiO2 12/13/17 06:40 36.8 60 18 99/58 96 111/63 Meds Administered Last 24 Hrs: Meds Administered (Past 24Hrs) Medications (Trade) Dose Ordered Sig/Reuben Route Start Time Stop Time Status Last Admin Dose Admin Risperidone (Risperdal M Tab) 4 mg HS PO 12/11/17 22:00 01/05/18 21:59 12/12/17 22:00 4 MG Risperidone (Risperdal M Tab) 0.5 mg QAM PO 12/12/17 09:00 01/11/18 08:59 12/13/17 07:31 0.5 MG
[2017-12-13] MEDS: RISPERIDONE ODT 1MG PO PRN ×2 (14:45→18:49)
[2017-12-13] MEDS: RISPERIDONE ODT 1MG PO SCH (21:22)
[2017-12-14 06:44] VITALS: BP_SYST 136; BP_SYST 142; BP_DIAS 82; BP_DIAS 84; PULSE 66; PULSE 97; TEMP 36.6
[2017-12-14] MEDS: NICOTINE 14 MG/24 HR TDSY TD SCH (08:06)
[2017-12-14] MEDS: RISPERIDONE ODT 0.5MG PO SCH (08:06)
[2017-12-14] MEDS ORDERED: RISP0.5T9 PO (09:19)
[2017-12-14] MEDS ORDERED: RSP2 PO (09:19)
--- NOTE | 2017-12-14 09:31 | Discharge Instructions ---
Discharge Information Report Includes Report will include the: Discharge Instructions & Summary Admission Admission Date / Time: Nov 30, 2017 at 15:33 Reason for Admission: Psychosis Nos Discharge Discharge Diagnosis / Problem: Bipolar I disorder, with psychosis Condition at Discharge: Fair Discharge Goals Goal(s): Decrease discomfort, Improve disease control Activity Recommendations Activity Limitations: resume your previous activity . Instructions / Follow-Up Instructions / Follow-Up . SPECIAL CARE INSTRUCTIONS: 1. Follow through with your scheduled aftercare appointments. If unable to keep an appointment, please call to reschedule. 2. Take your medication only as prescribed. Medication should not be changed or stopped without the approval of your doctor. In the event of worsening symptoms or concerns about side effects, contact your doctor immediately. 3. Utilize new healthy coping skills, anger management skills, and stress management skills learned during your hospitalization. Journal feelings and process them with a support person. Identify stressors or situations that may result in relapse, deterioration or inappropriate behaviors and develop a plan to deal with those issues. 4. If your coping skills are ineffective and you are in crisis, contact your outpatient providers for direction. If unable to reach your providers, please call the CAN HELP LINE AT or go to the closest Emergency Room. 5. Avoid alcohol and un-prescribed drugs. 6. You have been provided with the Mental Health Advance Directives Pamphlet for your review. AFTERCARE APPOINTMENTS: * Please call your insurance company prior to your scheduled appointment to confirm your aftercare providers are covered. Take your insurance information to your appointments. . Discharge / Aftercare Planning Primary Care Physician: Name: Leeann Davis - appointment to be scheduled as needed Appointment Notes: [address], [place] [address] Psychiatrist: Name: Shawn [facility] Carissa Newell Date of Appointment: Dec 19, 2017 Time of Appointment: 3:40 p.m. Appointment Notes: [address], [address], [place] [address] Therapist: Name Of Therapist: Daniel Garcia Date of Appointment: Dec 28, 2017 Time of Appointment: 10:30 am Appointment Comments: [address] [facility] [address] Poultry Grader: Name: [facility] Date of Appointment: Dec 31, 2017 Time of Appointment: 10:00 a.m. Appointment Notes: [address], [place], [place] [address] ( [facility]) . Follow-Up Care Plan for Follow-Up Care: The patient will see his psychiatric provider next week on December 19 Current Hospital Diet Patient's current hospital diet: Regular Diet Discharge Diet Recommended Diet: Regular Diet Procedures Procedures Performed: No Pending Studies Pending Studies at Discharge: No Medical Emergencies . Who to Call and When: Medical Emergencies: For questions or emergencies related to your hospital stay, please contact the Inpatient Behavioral Health Unit at [phone]. A eap clinician is on-call 09/04 for the Behavioral Health Unit for emergencies At any time you feel your situation is an emergency, you may also call 911 immediately. . Non-Emergent Contact Non-Emergency issues call your: Psychiatrist, Therapist Advance Directives Do You Have an Existing Mental: No Existing Living Will: No Existing Power of Cylinder Checker: No Advance Directives Info Given: To Pt/S.O. Advance Directives Reason: Declines as Mental Health Visit. Discharge Summary Admission HPI Per the Admitting provider: Per JAE Banks-- The patient reports that prior to admission he had not slept for 24 hours and was feeling anxious and manic about taking a test at on Sunday11/30/17 at [facility]. When he arrived at the site, his anxiety escalated when he realized the site was at a local school. 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 He was then transported cooperatively to the ED. He denies being under the influence of drugs or Alcohol at the time of admission. He states he last used his Adderall 10 mg x 1 was on . The patient reports prior to admission having depression and anxiety since childhood but never sought treatment until he recently saw [facility] and also [facility] for OP treatment. He states having intermittent prior episodes of marge in the past but mainly experiences feelings of anger and irritability that manifests as sarcasm and arrogance especially with regards to interpersonal relationships and mainly his parents. Prior to admission, he denied feelings of anhedonia, anergia or being down, depressed or hopeless but admits to feeling manic, racing thoughts - questioning himself repeatedly and ruminating about decisions. He states he began to feel paranoid and untrusting of his own decision making skills. He also voiced auditory hallucinations described as "sounds" at least 3 days EQUIPMENT OILER. . He denies visual hallucinations. He also reports daily chronic feelings of being anxious, restless and on edge. He reports feeling pressure from his parents to do well which aggravates his symptoms of anger. He admits to past fleeting passive suicidal ideation when under pressure from his parents but denies plan or intent. Currently, he denies SI/HI plan or intent but admits to short lived trial of SIB in the 8th grade when running around a group of kids who did it. He reports self diagnosis of ADD and admits to using his Adderall prescription inappropriately approximately 1.5 - 2 weeks prior to admission taking 30 mg a day. He states he typically would 10 mg a day but when having projects due he would use 10 mg in am and 20 mg in pm. He admits to "bad issues " with alcohol in high school reporting that he drank a lot to try to calm down his anger but realized it only made him angrier. Currently he admits to drinking a beer every on occasion and not often. He admits to chronic 3x/day cannabis use reporting this really helps to calm him and aids in anger control. The patient received and tolerated 1 dose of Risperdal last night. He states he feels his thoughts are more organized today and he thinks his mood is " coming down" in that previously he felt everything was "getting better and better" and even his handwriting was becoming perfect. He doesn't have much recollection of what happened at [facility] and doesn't relate in any way to his use of MJ. Hospital Course (1) Bipolar 1 disorder As per JAE Banks---12/01/17 - Bipolar 1 Disorder single episode manic with psychotic features - Mood stabilizer is indicated. Risperdal 1mg at HS. Discussed with the patient the risks/benefits/alternative treatments were reviewed re: Risperdal for mood and/or psychosis. Discussion included but was not limited to metabolic side effects, risks of TD and suicidal thoughts. Baseline AIMS=0. Baseline metabolic labs were ordered. - Hold Adderall and Wellbutrin - encourage group therapy participation targeting coping mechanisms for stress and issues with alcohol, cannabis and stimulant misuse - recommend as OP Quotient testing for definitive ADHD diagnosis - meet with social worker health services for safety plan discussion - family meeting encouraged -suspect stimulant misuse, will engage family to help with pill counts and check against last fill per PDMP. 12/02--increase Risperdal to 1 mg BID this am, prn Haldol and Ativan as ordered. Consider 302 if escalates again. 12/03--continue risperidone 1 mg twice daily, and add a 1 mg as needed dose for psychosis/marge. --Fasting lipid profile and glucose performed yesterday, results reviewed and all were within normal limits. --Schedule family meeting once patient is more reality based and able to tolerate it. --Coordinate care with outpatient psychiatrist, Dr. Newell (message sent via EMR ). Wellbutrin and Adderall discontinued on admission. --Educated the patient about the diagnosis of bipolar disorder type I, and gave him an up-to-date patient handout about bipolar disorder. 12/04--Continue risperidone, got 1mg prn yesterday. Consolidate to bedtime prior to discharge. --Schedule family meeting as psychosis improving. Provide psychoeducation about diagnosis and treatment recommendations. --Family visiting today and have been asked to bring in his Wellbutrin and Adderall for pill count and safe disposal. --Psychosis improving and has been in good behavioral control, so will discontinue medically necessary private room. 12/05 - Increase risperdal to 2.5 mg and shift all to HS 12/06 - Continue current meds 12/07 - Continue Risperdal 2.5mg qHS - Family meeting with mother on Sun, 12/09 - 72-hour notice to 12/09 - patient aware of ability to rescind. 12/08 - Patient rescinded 72 hr notice - Continue current meds 12/09 - Risperdal increased to 3.5 mg last HS. Will continue and have encouraged use of prn's 12/10 - Continue Risperdal 3.5mg qHS. Discussed benefit of prn's again; pt encouraged to request during times of "confusion" to assist with reality testing. 12/11 -Increase risperidone to 0.5 mg every morning and 4 mg nightly, and continue 1 mg as needed dose. Reviewed expectations of what the medication can do for him. -Encourage patient to reality test with staff. 12/12 -Continue current medications, and work on discharge planning, including ways to manage strained relationship with parents, and additional structure at home. -Referred for outpatient case management. 12/13 - Continue Risperdal 0.5mg qAM and 4mg qHS with 1mg prn dosing. Pt showing better insight as to benefits from and need for prn doses. - Encouraged patient to complete safety plan as anticipating discharge tomorrow if patient remains stable. - Will draft letter of support for termination of lease in [place] as requested by patient's parents. (2) Cannabis abuse - Advise patient to discontinue use - Encourage group participation to help patient learn other ways to cope with stress. Dr. South attempted 5+ min brief intervention on 12/01/17. He remains in precontemplation stage with regards to change. Impact of use on mood disorder reviewed. He is agreeable to resume outpatient therapy to address mood disorder and use. 12/03--continue to educate on the risks of continued substance abuse and recommendations for abstinence. Re-refer to [facility] for substance abuse treatment. 12/04-- Brief intervention was offered and accepted. Intervention was greater than 5 min in length. Brief interventions include: 1. Assess Readiness to Quit, 2. Advise: Help Patient to Reduce or Abstain from Alcohol, 3. Agree: Set Specific, Feasible Goals, 4. Assist: Anticipate barriers, Problem-Solving Solutions. Social work to 5. Arrange: Referrals to appropriate treatment. Summary of intervention: The patient is in contemplation stage with regards to transtheoretical model of change. The patient is advised to decrease alcohol consumption due to depressant effects and risk of interactions with prescription medications. The patient agreed to abstain and return to substance abuse counseling, and will be provided with recovery materials to continue to education self on how to cope with their condition without drinking. --Re-refer to [facility]. Patient working on plan to talk with family about need to abstain, asking siblings not to smoke pot in front of him, and plan to remove drug paraphernalia from his room. (3) Nicotine abuse The patient is a current smoker but does not want to quit and declines brief intervention for tobacco cessation. Accepted nicotine replacement patch. Risk Factors Assessment Male: Yes : Yes /single/: Yes Higher / Fall in social status: No Access to guns: No Health problems: No Mental Health Diagnoses: Yes Substance use disorders: No Previous attempt: No Family history of suicide: No Previous psychiatric stay: No Hopelessness: Yes Smoker: Yes Protective Factors Assessment Confucianism beliefs: No : No Responsible for young children: No Employed: No Stable relationships: No Supportive family: Yes Good rapport with provider: Yes Absence of risk factors above: No Day of Discharge Assessment COURSE OF HOSPITALIZATION: The patient was on her unit for 14 days. He was admitted voluntarily after presenting with what were interpreted as manic symptoms. He was started on Risperdal getting to 0.5 mg in the morning and 4 mg at bedtime. This did appear to slow his thinking although some psychotic symptoms remained. He had episodes during which he had difficulty differentiating reality, appearing as if he was getting ideas of reference from the TV. He also had relatively fluid boundaries, would incorporate stimuli from his environment into his psychotic thinking. Medications were adjusted with some improvement however by day of discharge there were some symptoms remaining. Prior to admission he had been abusing cannabis and stimulants. These were recommended to be stopped and he has agreed. He will be receiving counseling for substance use through [facility] post discharge. His family was very involved in his treatment, participating in 2 family meetings. The patient felt very supported by his father but felt that his mother's controlling and micromanaging ways were very stressful to him and worries how that will play out when he gets home. He worked a great deal on improving coping strategies and a safety plan and today can tell me that he has many people he can call and places he can go when he is feeling stressed. He denies any side effects to medications currently. Prior to admission, he had already obtained a release for an apartment [place] where [place] thought he would be going. His family was supplied with a letter at the patient's request to assist in getting him released from that contract. During his stay there were times when he felt that peers and staff around him were not who they said they were and experienced paranoia that that was intended in some way to affect him. This appeared to roberto by day of discharge although there were times that the staff felt he was minimizing his symptoms in order to look better than he was. TRANSITION OF CARE: I have personally reviewed the patient's follow-up appointments and medications. He has been counseled to keep all appointments and not alter his medications in any way without consulting his outpatient physicians. DAY OF DISCHARGE ASSESSMENT: Today the patient is requesting discharge. He feels that he is ready to go home and utilize his safety plan and coping strategies. He still is somewhat anxious about being able to manage at home but is denying acute psychosis. He denies suicidal or homicidal ideation. He can review his safety plan which ultimately includes return to the emergency room in the event of serious worsening of his condition. Today the patient is casually and appropriately dressed and groomed. Gait and station are within normal limits. Eye contact is good. Affect is blunted. Speech is of normal rate volume and tone. Thoughts are organized, goal-directed, and without overt evidence of psychosis. Recent and remote memory is intact per conversation. Intelligence is estimated to be average. Insight and judgment are improved over admission. Laboratory Test 11/30/17 12:19 11/30/17 12:20 11/30/17 13:08 12/01/17 12:40 POC Glucose 103 Urine Color YELLOW Urine Appearance CLEAR Urine pH 7.5 Urine Specific [place] 1.011 Urine Protein NEG Urine Glucose (UA) NEG Urine Ketones 1+ Urine Occult Blood NEG Urine Nitrite NEG Urine Bilirubin NEG Urine Urobilinogen NEG Urine Leukocyte Esterase NEG Urine Opiates Screen NEG Urine Methadone, Qualitative NEG Urine Barbiturates NEG Urine Phencyclidine (PCP) Level NEG Ur Amphetamine/Methamphetamine NEG Urine MDE-amphetamine (MDEA) negative Ur Methylenedioxyamphetamine (MDA) negative MDMA (Ecstasy) Screen POS Methylenedioxymethamphetamine (MDMA negative Urine Benzodiazepines Screen NEG Urine Cocaine Metabolite NEG Urine Marijuana (THC) POS Urine Marijuana (THC Carboxy Acid) 476 White Blood Count 6.94 Red Blood Count 5.29 Hemoglobin 15.9 Hematocrit 43.7 Mean Corpuscular Volume 82.6 Mean Corpuscular Hemoglobin 30.1 Mean Corpuscular Hemoglobin Concent 36.4 Platelet Count 255 Mean Platelet Volume 8.8 Neutrophils (%) (Auto) 73.7 Lymphocytes (%) (Auto) 17.4 Monocytes (%) (Auto) 8.1 Eosinophils (%) (Auto) 0.1 Basophils (%) (Auto) 0.3 Neutrophils # (Auto) 5.11 Lymphocytes # (Auto) 1.21 Monocytes # (Auto) 0.56 Eosinophils # (Auto) 0.01 Basophils # (Auto) 0.02 RDW Standard Deviation 37.7 RDW Coefficient of Variation 12.6 Immature Granulocyte % (Auto) 0.4 Immature Granulocyte # (Auto) 0.03 Sodium Level 138 Potassium Level 3.5 Chloride Level 106 Carbon Dioxide Level 23 Anion Gap 9.0 Blood Urea Nitrogen 7 Creatinine 1.00 Est Creatinine Clear Calc Drug Dose 136.2 Estimated GFR () 123.3 Estimated GFR (Non- 106.4 BUN/Creatinine Ratio 6.8 Random Glucose 91 Calcium Level 9.5 Total Bilirubin 0.5 Direct Bilirubin 0.1 Aspartate Amino Transferase (AST) 16 Alanine Aminotransferase (ALT) 25 Alkaline Phosphatase 57 Total Protein 8.0 Albumin 4.8 Globulin 3.2 Albumin/Globulin Ratio 1.5 Thyroid Stimulating Hormone (TSH) 0.745 Ethyl Alcohol mg/dL < 3.0 Urine Synthetic Stimulants see note Cannabinoids Comment see note Urine Synthetic Cannabinoids NEGATIVE Ur Synthetic Cannabinoids Confirm Test 12/02/17 06:21 Fasting Glucose 92 Triglycerides Level 86 Cholesterol Level 180 HDL Cholesterol 43 LDL Cholesterol, Calculated 120 VLDL Cholesterol, Calculated 17 Cholesterol/HDL Ratio 4.2 Total Time Total Time Spent (min): Greater than 30 minutes Total Time Included: examination of the patient, discharge planning, medication reconciliation, communication with other providers Tobacco Cessation at Discharge Smoking Status: Current Every Day Smoker FDA approved Prescription: declined med & out pt counseling
[2017-12-14] MEDS ORDERED: DESTROY THIS MEDICATION ONE (09:45)
--- NOTE | 2017-12-14 10:07 | Psych Management Progress Note ---
Psychiatry Miscellaneous Date of Service: Dec 14, 2017. Patient seen, MS assessed. Rates mood as improved, thoughts more organized. Does have periods requiring prn yesterday. He verbalizes safety plan. I personally participated in treatment team and medical decision making around his discharge and agree with WHARF WORKER assessment that he no longer meets inpatient criteria.
[2017-12-14] MEDS: RISPERIDONE ODT 1MG PO PRN (11:37)
== END 2017-12-14 14:13 | disposition home or self-care (01) | DRG 885 ==
LOC: C.EDB 11:40 → C.MHU 15:33
PROVIDERS: ADMIT Psychiatry & Neurology Child & Adolescent Psychiatry; ATTEND Psychiatry & Neurology Child & Adolescent Psychiatry
DX: F31.9 Bipolar disorder, unspecified (principal); Z83.3 Family history of diabetes mellitus; Z82.49 Family history of ischemic heart disease and other diseases of the circulatory system; F17.200 Nicotine dependence, unspecified, uncomplicated; F12.10 Cannabis abuse, uncomplicated; F30.9 Manic episode, unspecified

== ENCOUNTER 2017-12-17 22:34 | Inpatient (IN) | payer BC ==
[~2017-12-17] VITALS: Ht 177.8 cm; Wt 92.6 kg
[~2017-12-17 22:34] MED LIST changes: -AMPH10TA2 PO; -AMPH20TA2 PO; -BUPRTAB51 PO; +RISP0.5T9 PO; +RSP2 PO
[2017-12-17] MEDS ORDERED: RISPERIDONE 1 MG TAB PO ONE (23:15)
--- NOTE | 2017-12-17 23:17 | EMERGENCY ROOM VISIT NOTE ---
History First contact with patient: 22:47 Chief Complaint: MENTAL HEALTH EVALUATION Stated Complaint: PSYCHOSIS/DELUSIONS History of Present Illness The patient is a 22 year old male who presents to the Emergency Room for evaluation of hallucinations. Patient just discharged from this facility 3 days ago for paranoia and hallucinations. Since getting home he notes continued issues with anxiety from paranoia and not trusting his parents who he lives with. Symptoms worsening throughout the day with severe paranoia of parents and [facility] Help called. Patient told them he was becoming suicidal though notes he is no longer suicidal. He denies suicidal plan nor action. Denies drug/etoh use. Admits he has been hiding his emergency risperdal doses and not taking all of them. He denies medical issue currently. No new drugs. No attempts at harming himself. States he does not feel he is doing well as an outpatient. Hallucinations include people watching him and are out to get him or harm him. Source of History: patient Onset: 3 days ago Position: other (global) Quality: other (hallucinations) Timing: worsening Note: The patient complains of suicidal ideation earlier and paranoia. The patient denies suicidal plan. Review of Systems See HPI for pertinent positives & negatives. A total of 10 systems reviewed and were otherwise negative. Past Medical/Surgical History Medical Problems: (1) Cannabis abuse (2) Nicotine abuse (3) Stimulant abuse Social History Problems: (1) Alcohol abuse Family History Cancer Diabetes mellitus Gallbladder disease Heart disease Hypertension Kidney stones Lung disease Seizures Social History Smoking Status: Current Every Day Smoker Alcohol Use: occasionally Drug Use: marijuana Marital Status: single Housing Status: lives with family Occupation Status: [employer] student Current/Historical Medications Scheduled Risperidone (Risperdal), 1 TAB PO QAM Risperidone (Risperidone), 4 MG PO HS Physical Exam Vital Signs Date Time Temp Pulse Resp B/P (MAP) Pulse Ox O2 Delivery O2 Flow Rate FiO2 12/18/17 02:00 78 18 97 Room Air 12/17/17 22:37 36.5 115 16 155/99 97 Room Air Physical Exam GENERAL: Patient is mildly anxious appearing and in no acute distress. EYES: No scleral icterus, unremarkable pupils. ENT: Mucous membranes moist, no nasal congestion. NECK: No masses appreciated, no meningismus, trachea is midline. RESPIRATORY: No dyspnea. Clear to auscultation and equal bilaterally. No wheeze , no rhonchi. CARDIOVASCULAR: Regular rate and rhythm. No murmurs, rubs, gallops appreciated. GASTROINTESTINAL: Abdomen soft, nontender, no peritonitis. Bowel sounds positive. No masses appreciated. BACK: No midline tenderness, no CVA tenderness EXTREMITIES: Normal motion all extremities, no cyanosis, no edema. NEUROLOGIC: Alert and oriented, no acute motor or sensory deficits, no focal weakness, cranial nerves grossly intact. SKIN: No rash, no jaundice, no diaphoresis. PSYCH: Admits hallucinations. Denies suicidal/homicidal ideation Medical Decision & Procedures Laboratory Results 12/17/17 23:18 Red Blood Count 5.10, Mean Corpuscular Volume 83.3, Mean Corpuscular Hemoglobin 30.0, Mean Corpuscular Hemoglobin Concent 36.0, Mean Platelet Volume 9.0, Neutrophils (%) (Auto) 66.1, Lymphocytes (%) (Auto) 25.5, Monocytes (%) (Auto) 6.4, Eosinophils (%) (Auto) 1.4, Basophils (%) (Auto) 0.3, Neutrophils # (Auto) 5.96, Lymphocytes # (Auto) 2.30, Monocytes # (Auto) 0.58, Eosinophils # (Auto) 0.13, Basophils # (Auto) 0.03 12/17/17 23:18 Test 12/17/17 23:16 12/17/17 23:18 Urine Color YELLOW Urine Appearance CLEAR (CLEAR) Urine pH 7.0 (4.5-7.5) Urine Specific [place] 1.006 (1.000-1.030) Urine Protein NEG (NEG) Urine Glucose (UA) NEG (NEG) Urine Ketones NEG (NEG) Urine Occult Blood NEG (NEG) Urine Nitrite NEG (NEG) Urine Bilirubin NEG (NEG) Urine Urobilinogen NEG (NEG) Urine Leukocyte Esterase NEG (NEG) Urine WBC (Auto) 0 /hpf (0-5) Urine RBC (Auto) 0-4 /hpf (0-4) Urine Hyaline Casts (Auto) 0 /lpf (0-5) Urine Epithelial Cells (Auto) 0-5 /lpf (0-5) Urine Bacteria (Auto) NEG (NEG) Urine Opiates Screen NEG (NEG) Urine Methadone, Qualitative NEG (NEG) Urine Barbiturates NEG (NEG) Urine Phencyclidine (PCP) Level NEG (NEG) Ur Amphetamine/Methamphetamine NEG (NEG) MDMA (Ecstasy) Screen NEG (NEG) Urine Benzodiazepines Screen NEG (NEG) Urine Cocaine Metabolite NEG (NEG) Urine Marijuana (THC) NEG (NEG) White Blood Count 9.03 K/uL (4.8-10.8) Red Blood Count 5.10 M/uL (4.7-6.1) Hemoglobin 15.3 g/dL (14.0-18.0) Hematocrit 42.5 % (42-52) Mean Corpuscular Volume 83.3 fL (80-100) Mean Corpuscular Hemoglobin 30.0 pg (25-34) Mean Corpuscular Hemoglobin Concent 36.0 g/dl (32-36) Platelet Count 253 K/uL (130-400) Mean Platelet Volume 9.0 fL (7.4-10.4) Neutrophils (%) (Auto) 66.1 % Lymphocytes (%) (Auto) 25.5 % Monocytes (%) (Auto) 6.4 % Eosinophils (%) (Auto) 1.4 % Basophils (%) (Auto) 0.3 % Neutrophils # (Auto) 5.96 K/uL (1.4-6.5) Lymphocytes # (Auto) 2.30 K/uL (1.2-3.4) Monocytes # (Auto) 0.58 K/uL (0.11-0.59) Eosinophils # (Auto) 0.13 K/uL (0-0.5) Basophils # (Auto) 0.03 K/uL (0-0.2) RDW Standard Deviation 38.5 fL (36.4-46.3) RDW Coefficient of Variation 12.7 % (11.5-14.5) Immature Granulocyte % (Auto) 0.3 % Immature Granulocyte # (Auto) 0.03 K/uL (0.00-0.02) Anion Gap 8.0 mmol/L (3-11) Est Creatinine Clear Calc Drug Dose 137.4 ml/min Estimated GFR () 126.3 Estimated GFR (Non- 109.0 BUN/Creatinine Ratio 10.1 (10-20) Calcium Level 8.8 mg/dl (8.5-10.1) Total Bilirubin 0.3 mg/dl (0.2-1) Aspartate Amino Transf (AST/SGOT) 23 U/L (15-37) Alanine Aminotransferase (ALT/SGPT) 31 U/L (12-78) Alkaline Phosphatase 62 U/L (45-117) Total Protein 7.6 gm/dl (6.4-8.2) Albumin 4.4 gm/dl (3.4-5.0) Globulin 3.2 gm/dl (2.5-4.0) Albumin/Globulin Ratio 1.4 (0.9-2) Salicylates Level < 1.7 mg/dl (2.8-20) Acetaminophen Level < 2 ug/ml (10-30) Ethyl Alcohol mg/dL < 3.0 mg/dl (0-3) Laboratory results as reviewed by me. Medications Administered Medications (Trade) Dose Ordered Sig/Reuben Route Start Time Stop Time Status Last Admin Dose Admin Risperidone (Risperdal Tab) 4 mg NOW ONCE PO 12/17/17 23:15 12/17/17 23:16 DC 12/17/17 23:30 4 MG ED Course 2247: The patient was evaluated in room A5. A complete history and physical exam was performed. 2315: Ordered Risperdal Tab 4 mg PO. 0001: I reevaluated the patient and he is talking with the mental health case management coordinator. 0123: I reevaluated the patient and he is waiting for [address] [place] [address] to evaluate him. 0203: The patient was accepted to [address] [place] [address] for further treatment and care. Medical Decision Differential: Mood Disorder, Overdose, Infectious, Electrolyte Abnormality, Cardiac, Hepatic, Endocrine, Toxicologic, Neurologic, amongst other pathologies entertained. 22 yr old male with worsening paranoid delusions and hallucinations despite just being discharged from psychiatry inpatient a few days ago. Clearly not doing well as an outpatient. Medically clear/stable and accepted to [address] [place] [address]. Medication Reconcilliation Current Medication List: was personally reviewed by me Blood Pressure Screening Patient's blood pressure: Elevated blood pressure Blood pressure disposition: Elevated BP felt to be situational Impression Primary Impression: Paranoid delusion Additional Impression: Hallucinations Departure Information Dispostion Mental Health Acute Care Referrals No Doctor, Assigned (PCP) Patient Instructions [facility] Problem Qualifiers
[2017-12-17 23:38] LABS: BASO % 0.3 %; BASO ABS # 0.03 K/uL (0-0.2); EOS % 1.4 %; EOS ABS # 0.13 K/uL (0-0.5); HEMATOCRIT 42.5 % (42-52); HEMOGLOBIN 15.3 g/dL (14.0-18.0); IG# 0.03 K/uL (0.00-0.02); LYMPH % 25.5 %; MEAN CELL VOLUME 83.3 fL (80-100); MONO % 6.4 %; MONO ABS # 0.58 K/uL (0.11-0.59); NEUT % 66.1 %; NEUT ABS # 5.96 K/uL (1.4-6.5); PLATELET COUNT 253 K/uL (130-400); RED CELL DISTRIBUTION WIDTH CV 12.7 % (11.5-14.5); RED CELL DISTRIBUTION WIDTH SD 38.5 fL (36.4-46.3); WHITE BLOOD COUNT 9.03 K/uL (4.8-10.8)
[2017-12-18 00:07] LABS: ALBUMIN 4.4 gm/dl (3.4-5.0); CALCIUM 8.8 mg/dl (8.5-10.1); CREATININE 0.98 mg/dl (0.60-1.40); TOTAL PROTEIN 7.6 gm/dl (6.4-8.2)
[2017-12-18 00:10] LABS: POTASSIUM 3.8 mmol/L (3.5-5.1)
[2017-12-18 02:00] VITALS: O2SAT 97
[2017-12-18] MEDS ORDERED: NURSING VERBAL MED ORDER ONE ×2 (02:15→03:15)
[2017-12-18] MEDS ORDERED: BISMUTH SUBSALICYLATE PER ML OMNICELL CHARGE PO PRN (02:45)
[2017-12-18] MEDS ORDERED: ALUMINUM/MAGNESIUM SUSP 30 ML UDC PO PRN (02:45)
[2017-12-18] MEDS ORDERED: SODIUM CHLORIDE 0.65% NA SOLN 45 ML (OCEAN) PRN (02:45)
[2017-12-18] MEDS ORDERED: MAGNESIUM HYDROXIDE SUSP 30 ML UDC PO PRN (02:45)
[2017-12-18] MEDS ORDERED: ACETAMINOPHEN 325 MG TAB PO PRN (02:45)
[2017-12-18] MEDS ORDERED: RISPERIDONE 0.5 MG TAB PO PRN (03:30)
[2017-12-18 03:46] VITALS: BP 130/88; PULSE 78; TEMP 36.5; Ht 177.8 cm; Wt 92.6 kg
[2017-12-18] MEDS ORDERED: PNEUMOCOCCAL ADMINISTRATION CHARGE ONE (04:15)
[2017-12-18] MEDS ORDERED: PNEUMOCOCCAL POLYSACCHARIDES 25 MCG/0.5 ML VIAL/SYR IM. ONE (04:15)
[2017-12-18 06:34] VITALS: BP_SYST 104; BP_SYST 131; BP_DIAS 60; BP_DIAS 77; PULSE 51; PULSE 90; TEMP 36.5
[2017-12-18] MEDS ORDERED: RISPERIDONE 0.5 MG TAB PO SCH (09:00)
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
[2017-12-18] MEDS: OLANZAPINE ZYDIS 5 MG ORALLY DIS. TAB PO PRN (13:33)
[2017-12-18] MEDS ORDERED: NICOTINE 14 MG/24 HR TDSY TD ONE (15:18)
--- NOTE | 2017-12-18 17:46 | Psychiatric Progress Notes ---
Psychiatric Progress Note Date of Service Dec 18, 2017. Notes Mother presented to the hospital with a copy of a Durable Power of Community Marketing Manager, signed by the patient on 12/17/17. She relayed to the nursing staff that she wanted him to be transferred to [facility] and for us not to make any medications changes. She did not present a Mental Health Power of Community Marketing Manager. The patient was approached, told nursing that he did not want to be transferred , that he wanted to remain at [facility], saying that he did not understand what he had signed. At the time of my interview with the patient, he was oriented, understood the questions being asked and was able to communicate his wishes. He was able to make reasonable decisions about his care that were reality based. At this time he has the capacity to make his own decisions regarding his own treatment including location and medications.
[2017-12-18] MEDS ORDERED: OLANZAPINE ZYDIS 5 MG ORALLY DIS. TAB PO SCH (22:00)
[2017-12-18] MEDS ORDERED: RISPERIDONE 2 MG TAB PO SCH (22:00)
[2017-12-18] MEDS: hydrOXYzine HCL 25 MG TAB PO PRN ×2 (22:38→23:29)
[2017-12-19 06:39] VITALS: BP_SYST 128; BP_SYST 139; BP_DIAS 75; BP_DIAS 84; PULSE 50; PULSE 57; TEMP 36.4
[2017-12-19] MEDS: NICOTINE 14 MG/24 HR TDSY TD SCH (08:24)
[2017-12-19] MEDS: OLANZAPINE ZYDIS 5 MG ORALLY DIS. TAB PO PRN (09:03)
--- NOTE | 2017-12-19 11:57 | Psychiatric Progress Notes ---
Progress Note Date of Service Dec 19, 2017. Interval History 22-year-old gentleman just released from our unit 3 days ago, readmitted voluntarily with a worsening of his paranoia Chief Complaint "I'm a little depressed. ". Subjective Patient was seen & assessed interval progress reviewed with Treatment Team. Albert has recieved 2 doses of Zyprexa and tolerated without side effect. He slept well last night, but no other perceived benefits yet. He continues to receive messages directed to him from the TV, the newspaper and his peers. His is able to acknowledge that "its seems a little wierd", but has not been able to reality test it. He believes that sometimes his peers are saying one thing and meaning another. He continues to deny aud/vis hallucinations and continues to deny SI. He repeats again today that he would like to receive his treatment at [facility], is willing for medication changes, and is willing for me to talk with his aunt Vicenta Sheikh regarding his treatment. He reports good sleep and appetite. Nursing reports that parents, after presenting a signed Durable Power of Supply Requirements Officer yesterday, were unhappy that he was not declared incapable of making decisions allowing them to take over decision making. His aunt, Vicenta Sheikh, who is a SILK SCREEN FRAME ASSEMBLER was involved. Patient expressed a preference to deal with his aunt and his sister Najma, but not his parents right now. Review of Systems Constitutional: No fever, No chills, No sweats, No weight loss, No weakness, No fatigue, No problem reported ENT: No hearing loss, No unusual epistaxis, No nasal symptoms, No sore throat, No tinnitus, No dental problems, No trouble swallowing, No problem reported Respiratory: No cough, No sputum, No wheezing, No shortness of breath, No dyspnea on exertion, No dyspnea at rest, No hemoptysis, No problem reported Cardiovascular: No chest pain, No orthopnea, No PND, No edema, No claudication , No palpitations, No problem reported Abdomen: No pain, No nausea, No vomiting, No diarrhea, No constipation, No GI bleeding, No problem reported Musculoskeletal: No joint pain, No muscle pain, No swelling, No calf pain, No problem reported Neurologic: No memory loss, No paralysis, No weakness, No numbness/tingling, No vertigo, No balance problems, No problem reported Psychiatric: + depression symptoms ("a little depressed"), + problem reported ( ideas of reference) Integumentary: No rash, No itch, No new/changing skin lesions, No color change , No bleeding, No problem reported Sleep Information Total Hours of Sleep: 6.25 Meal Information Percent of Breakfast Consumed: 100 Percent of Lunch Consumed: 100 Percent of Dinner Consumed: 100 Mental Status Exam During interview pt is: alert and oriented, cooperative Appearance: appropriately dressed, appropriately groomed Eye contact is: good Motor behavior is: steady gait & station, no abnormal motor movements Speech: normal in rate, rhythm & volume Affect: flat Mood is: depressed Thought process: goal directed Thought content: delusions, ideas of reference Suicidal thought are: denied Homicidal thoughts are: denied Hallucinations: denies auditory, denies visual Cognition: memory grossly intact, attention grossly intact, language grossly intact Intelligence estimated to be: average Insight: impaired Judgement: impaired Summary of Past History 12/19/[address] Naren Levine Oct-November 2017. Impressions include that he is of average intelligence, self reports of mild to moderate depression and anxiety that have been worse since a breakup with a girlfriend in 2017. ADHD not likely. Diagnoses included Major Depressive Disorder, recurrent, mild, unspecified anxiety disorder, unspecified personality disorder , and alcohol us disorder. Impression Tolerating initial doses of zyprexa and so will increase to 5 mg. tonight and continue prn's. Will follow mood to decide if warrants and ADM. Spoke with patient's aunt Vicenta Sheikh, with patient's permission to discussion diagnosis and treatment recommendations. Aunt agreed that Risperdal wasnt working and appreciated that meds had been changed. She provided a copy of neuropsych testing last evening done with Albert zavala Oct-November of this year and has been reviewed. Talked with Vicenta about diagnoses, being less impressed with a cyclical mood component and more with the thought disorder, having now changed his diagnosis to Schizoaffective disorder, which she understood. She was on a mobile device in her car and so understanding all of her conversation was difficult. She expressed her thanks for the call and being kept updated. Plan (1) Schizoaffective disorder, bipolar type 12/18/17 - DC risperdal in favor of a trial of Zyprexa 2.5 mg. HS increasing as tolerated. R/B/A reviewed again including now the risk for weight gain - Continue use of prn vistaril for anxiety - q 15 min checks for safety - Encourage participation in group and individual counseling - will use ODT Zyprexa in view of hx of spitting out some pills - Reality orientation - Supplemental from parents - Coordinate with OP providers. - FLP and FBS obtained 12/02/17 and WNL 12/19 - Increase Zyprexa Zydis to 5 mg. HS, continue prns' - Assist the patient with reality orientation Dr. Dayami Rivera has personally been involved in the review of this case and development of these recommendations. Discharge / Aftercare Planning Primary Care Physician: Name: Leeann Davis Appointment Notes: [address] [place] [address], [place] [address] Psychiatrist: Name: [facility] Dr. Newell Date of Appointment: Jan 04, 2018 Time of Appointment: 2:40 p.m. [facility]rapist: [facility] Date of Appointment: Dec 28, 2017 Time of Appointment: 10:30 a.m. Appointment Notes: [address], [address], [place] [address] Director Cost: Name: [facility] - Intake Date of Appointment: Dec 31, 2017 Time of Appointment: 10:00 a.m. Appointment Notes: [address], [address], [place] [address] Visit Code E&M Code: 15220 Therapy Code: including communication with family Inventory Assets Strengths: Support from parents, intelligence Needs: to continue to abstain from cannabis Risk Factors Assessment Male: Yes : Yes /single/: Yes Higher / Fall in social status: No Health problems: No Mental Health Diagnoses: Yes Substance use disorders: Yes Previous attempt: No Previous psychiatric stay: Yes Smoker: Yes Protective Factors Assessment Restorationist beliefs: No : No Responsible for young children: No Employed: No Supportive family: Yes Data Vital Signs Last 24 Hrs: Date Time Temp Pulse Resp B/P (MAP) Pulse Ox O2 Delivery O2 Flow Rate FiO2 12/19/17 06:39 36.4 50 18 139/75 57 128/84 Meds Administered Last 24 Hrs: Meds Administered (Past 24Hrs) Medications (Trade) Dose Ordered Sig/Reuben Route Start Time Stop Time Status Last Admin Dose Admin Risperidone (Risperdal Tab) 4 mg NOW ONCE PO 12/17/17 23:15 12/17/17 23:16 DC 12/17/17 23:30 4 MG Hydroxyzine HCl (Vistaril Tab) 50 mg HSZ PRN PO 12/18/17 02:45 01/17/18 02:44 12/18/17 23:29 50 MG Risperidone (Risperdal Tab) 0.5 mg QAM PO 12/18/17 09:00 12/18/17 11:45 DC 12/18/17 10:01 0.5 MG Olanzapine (Zyprexa Zydis Od Tab) 2.5 mg HS PO 12/18/17 22:00 01/17/18 21:59 12/18/17 21:12 2.5 MG Olanzapine (Zyprexa Zydis Od Tab) 2.5 mg Q4H PRN PO 12/18/17 11:45 01/17/18 11:44 12/19/17 09:03 2.5 MG Nicotine (Nicoderm Cq 14MG Patch) 1 patch QAM TD 12/19/17 09:00 01/18/18 08:59 12/19/17 08:24 1 PATCH Nicotine (Nicoderm Cq 14MG Patch) 1 patch 1518 ONCE TD 12/18/17 15:18 12/18/17 15:21 DC 12/18/17 16:29 1 PATCH Lab Results Last 24 Hrs: 12/17/17 23:18 Red Blood Count 5.10, Mean Corpuscular Volume 83.3, Mean Corpuscular Hemoglobin 30.0, Mean Corpuscular Hemoglobin Concent 36.0, Mean Platelet Volume 9.0, Neutrophils (%) (Auto) 66.1, Lymphocytes (%) (Auto) 25.5, Monocytes (%) (Auto) 6.4, Eosinophils (%) (Auto) 1.4, Basophils (%) (Auto) 0.3, Neutrophils # (Auto) 5.96, Lymphocytes # (Auto) 2.30, Monocytes # (Auto) 0.58, Eosinophils # (Auto) 0.13, Basophils # (Auto) 0.03 12/17/17 23:18 Test 12/17/17 23:16 12/17/17 23:18 Urine Color YELLOW Urine Appearance CLEAR (CLEAR) Urine pH 7.0 (4.5-7.5) Urine Specific [place] 1.006 (1.000-1.030) Urine Protein NEG (NEG) Urine Glucose (UA) NEG (NEG) Urine Ketones NEG (NEG) Urine Occult Blood NEG (NEG) Urine Nitrite NEG (NEG) Urine Bilirubin NEG (NEG) Urine Urobilinogen NEG (NEG) Urine Leukocyte Esterase NEG (NEG) Urine WBC (Auto) 0 /hpf (0-5) Urine RBC (Auto) 0-4 /hpf (0-4) Urine Hyaline Casts (Auto) 0 /lpf (0-5) Urine Epithelial Cells (Auto) 0-5 /lpf (0-5) Urine Bacteria (Auto) NEG (NEG) Urine Opiates Screen NEG (NEG) Urine Methadone, Qualitative NEG (NEG) Urine Barbiturates NEG (NEG) Urine Phencyclidine (PCP) Level NEG (NEG) Ur Amphetamine/Methamphetamine NEG (NEG) MDMA (Ecstasy) Screen NEG (NEG) Urine Benzodiazepines Screen NEG (NEG) Urine Cocaine Metabolite NEG (NEG) Urine Marijuana (THC) NEG (NEG) White Blood Count 9.03 K/uL (4.8-10.8) Red Blood Count 5.10 M/uL (4.7-6.1) Hemoglobin 15.3 g/dL (14.0-18.0) Hematocrit 42.5 % (42-52) Mean Corpuscular Volume 83.3 fL (80-100) Mean Corpuscular Hemoglobin 30.0 pg (25-34) Mean Corpuscular Hemoglobin Concent 36.0 g/dl (32-36) Platelet Count 253 K/uL (130-400) Mean Platelet Volume 9.0 fL (7.4-10.4) Neutrophils (%) (Auto) 66.1 % Lymphocytes (%) (Auto) 25.5 % Monocytes (%) (Auto) 6.4 % Eosinophils (%) (Auto) 1.4 % Basophils (%) (Auto) 0.3 % Neutrophils # (Auto) 5.96 K/uL (1.4-6.5) Lymphocytes # (Auto) 2.30 K/uL (1.2-3.4) Monocytes # (Auto) 0.58 K/uL (0.11-0.59) Eosinophils # (Auto) 0.13 K/uL (0-0.5) Basophils # (Auto) 0.03 K/uL (0-0.2) RDW Standard Deviation 38.5 fL (36.4-46.3) RDW Coefficient of Variation 12.7 % (11.5-14.5) Immature Granulocyte % (Auto) 0.3 % Immature Granulocyte # (Auto) 0.03 K/uL (0.00-0.02) Anion Gap 8.0 mmol/L (3-11) Est Creatinine Clear Calc Drug Dose 137.4 ml/min Estimated GFR () 126.3 Estimated GFR (Non- 109.0 BUN/Creatinine Ratio 10.1 (10-20) Calcium Level 8.8 mg/dl (8.5-10.1) Total Bilirubin 0.3 mg/dl (0.2-1) Aspartate Amino Transf (AST/SGOT) 23 U/L (15-37) Alanine Aminotransferase (ALT/SGPT) 31 U/L (12-78) Alkaline Phosphatase 62 U/L (45-117) Total Protein 7.6 gm/dl (6.4-8.2) Albumin 4.4 gm/dl (3.4-5.0) Globulin 3.2 gm/dl (2.5-4.0) Albumin/Globulin Ratio 1.4 (0.9-2) Salicylates Level < 1.7 mg/dl (2.8-20) Acetaminophen Level < 2 ug/ml (10-30) Ethyl Alcohol mg/dL < 3.0 mg/dl (0-3)
[2017-12-19] MEDS ORDERED: OLANZAPINE ZYDIS 5 MG ORALLY DIS. TAB PO SCH (22:00)
[2017-12-20 06:50] VITALS: BP_SYST 114; BP_SYST 117; BP_DIAS 65; BP_DIAS 73; PULSE 48; PULSE 60; TEMP 36.4
[2017-12-20] MEDS: NICOTINE 14 MG/24 HR TDSY TD SCH (08:17)
--- NOTE | 2017-12-20 08:19 | Psychiatric Progress Notes ---
Progress Note Date of Service Dec 20, 2017. Interval History 22-year-old gentleman just released from our unit 3 days ago, readmitted voluntarily with a worsening of his paranoia Chief Complaint "Lightheaded". Subjective Patient was seen & assessed interval progress reviewed with Nursing. Staff report he is going to groups, has been in good behavioral control, and interacts appropriately with others. He got 2.5mg of olanzapine prn yesterday am and 5mg scheduled at bedtime. He asked to visit with his cousin yesterday, but did not want any other family to visit. On my assessment today, the patient states he feels lightheaded, which he attributes to taking a hot shower and drinking decaf coffee. He says he is "better, I don't know, don't really know what to expect here." He thinks it is "helping to be here, away from my family, to figure out what I need." He says he feels "triggered by my family at home, to isolate and do drugs." Denies that he was using illicit drugs, but says was smoking cigarettes and drinking coffee at home. Sleep is fair, getting 6-7 hours a night. Eating well. Describes his thoughts as "not much," then starts talking about the people he is meeting here, "I'm happy it's all set up, this girl I'm meeting here is helping me get things set up." Admits thoughts are racing "a little bit," and that he is "making connections, but I'm not ready to share them yet, I'm just a little bit lost." He says he "has some ideas about what I want to do when I get out of here, but I'm hesitant, want to leave them as some ideal reality." He talks about having "so many things I want to do, I was trying to leave this town, now I wonder if I ever will leave this town, but I always wanted to travel." He wants to learn [place]ian, "I think it would be really good for me and my mind, part of my development." He says his house isn' t "good for me, because my mom's not good for me, she called the crisis." He says he "wants to take a break from them, it's not them, I just need some time for myself." He admits he still thinks things on TV are directed at him, but says it is less intense than previously. He denies auditory hallucinations, then says he has heard a doorbell and wasn't sure if it was real or not. Sleep Information Total Hours of Sleep: 6.75 Meal Information Percent of Breakfast Consumed: 100 Percent of Lunch Consumed: 100 Percent of Dinner Consumed: 100 Mental Status Exam During interview pt is: alert and oriented, cooperative Appearance: appropriately dressed, appropriately groomed Eye contact is: good Motor behavior is: steady gait & station, no abnormal motor movements Speech: normal in rate, rhythm & volume Affect: blunted Mood is: other ("ok") Thought process: goal directed Thought content: delusions, ideas of reference Suicidal thought are: denied Homicidal thoughts are: denied Hallucinations: denies auditory, denies visual Cognition: memory grossly intact, attention grossly intact, language grossly intact Intelligence estimated to be: average Insight: impaired Judgement: impaired Summary of Past History 12/19/[address] Naren Levine Oct-November 2017. Impressions include that he is of average intelligence, self reports of mild to moderate depression and anxiety that have been worse since a breakup with a girlfriend in 2017. ADHD not likely. Diagnoses included Major Depressive Disorder, recurrent, mild, unspecified anxiety disorder, unspecified personality disorder , and alcohol us disorder. Impression Psychosis improving. Tolerating olanzapine well and will continue to titrate to effective dose. Encourage prn's if needed. Reviewed neuropsych testing from Oct -November of this year and has been reviewed. Care coordinated with outpatient psychiatrist. Plan (1) Schizoaffective disorder, bipolar type 12/18/17 - Diagnosis at the time of initial hospitalization in November 2017 with bipolar type I, but due to persistence of psychotic symptoms in the absence of mood symptoms, now changed to schizoaffective disorder bipolar type. - DC risperdal in favor of a trial of Zyprexa 2.5 mg. HS increasing as tolerated. R/B/A reviewed again including now the risk for weight gain - Continue use of prn vistaril for anxiety - q 15 min checks for safety - Encourage participation in group and individual counseling - will use ODT Zyprexa in view of hx of spitting out some pills - Reality orientation - Supplemental from parents - Coordinate with OP providers. - FLP and FBS obtained 12/02/17 and WNL 12/19 - Increase Zyprexa Zydis to 5 mg. HS, continue prns' - Assist the patient with reality orientation 12/20 -Increase olanzapine to 7.5 mg nightly. Encourage group attendance and participation, and reality testing. Mood appears stable, making schizoaffective or schizophrenia more likely diagnosis due to the absence of prominent mood symptoms. -Follow-up appointment with outpatient psychiatrist Dr. Newell has been rescheduled for 01/04/2018, and care was coordinated with him on admission. Discharge / Aftercare Planning Primary Care Physician: Name: Leeann Davis Appointment Notes: [address] [facility] [address] [facility], [place] [address] Psychiatrist: Name: [facility] - Dr. Newell Date of Appointment: Jan 04, 2018 Time of Appointment: 2:40 p.m. Therapist: [facility] Date of Appointment: Dec 28, 2017 Time of Appointment: 10:30 a.m. Appointment Notes: [address], [address], [place] [address] Engine Assembler: Name: [facility] - Intake Date of Appointment: Dec 31, 2017 Time of Appointment: 10:00 a.m. Appointment Notes: [address], [address], [place] [address] Visit Code E&M Code: 48342 Inventory Assets Strengths: Supportive family, intelligence Needs: to continue to abstain from cannabis, learn about illness/insight Risk Factors Assessment Male: Yes : Yes /single/: Yes Higher / Fall in social status: No Health problems: No Mental Health Diagnoses: Yes Substance use disorders: Yes Previous attempt: No Previous psychiatric stay: Yes Smoker: Yes Protective Factors Assessment Orthodoxy beliefs: No : No Responsible for young children: No Employed: No Supportive family: Yes Data Vital Signs Last 24 Hrs: Date Time Temp Pulse Resp B/P (MAP) Pulse Ox O2 Delivery O2 Flow Rate FiO2 12/20/17 06:50 36.4 48 16 114/65 60 117/73 Meds Administered Last 24 Hrs: Meds Administered (Past 24Hrs) Medications (Trade) Dose Ordered Sig/Reuben Route Start Time Stop Time Status Last Admin Dose Admin Risperidone (Risperdal Tab) 0.5 mg QAM PO 12/18/17 09:00 12/18/17 11:45 DC 12/18/17 10:01 0.5 MG Olanzapine (Zyprexa Zydis Od Tab) 2.5 mg HS PO 12/18/17 22:00 12/19/17 13:42 DC 12/18/17 21:12 2.5 MG Olanzapine (Zyprexa Zydis Od Tab) 2.5 mg Q4H PRN PO 12/18/17 11:45 01/17/18 11:44 12/19/17 09:03 2.5 MG Nicotine (Nicoderm Cq 14MG Patch) 1 patch QAM TD 12/19/17 09:00 01/18/18 08:59 12/19/17 08:24 1 PATCH Nicotine (Nicoderm Cq 14MG Patch) 1 patch 1518 ONCE TD 12/18/17 15:18 12/18/17 15:21 DC 12/18/17 16:29 1 PATCH Miscellaneous (Remove Nicoderm Patch) 1 ea HS N/A 12/18/17 22:00 01/17/18 21:59 12/19/17 21:03 1 EA Olanzapine (Zyprexa Zydis Od Tab) 5 mg HS PO 12/19/17 22:00 01/17/18 21:59 12/19/17 21:03 5 MG
[2017-12-20] MEDS ORDERED: OLANZAPINE ZYDIS 5 MG ORALLY DIS. TAB PO SCH (22:00)
[2017-12-21 06:29] VITALS: BP_SYST 116; BP_SYST 120; BP_DIAS 67; BP_DIAS 71; PULSE 52; PULSE 56; TEMP 36.6
--- NOTE | 2017-12-21 09:25 | Psychiatric Progress Notes ---
Progress Note Date of Service Dec 21, 2017. Interval History 22-year-old gentleman just released from our unit 3 days ago, readmitted voluntarily with a worsening of his paranoia Chief Complaint "I haven't been as drowsy in the morning, but I still don't sleep well". Subjective Patient was seen & assessed interval progress reviewed with Treatment Team. Staff reports the patient requested a visit with his cousin last evening and reported to her some thoughts that have not been shared with staff. Pt was calling himself "Joel Mckeon", something unusual for the cousin to see. He was also sharing thoughts that the staff was planted here for him and that they changed their names. Pt has also reported hearing whistles while on the unit. Pt was seen today to assess progress since admission. Pt continues to be vague in his conversations, stating he has been "working out some things" and that "this is all part of the game". Pt questions this provider about available prn medications as he feels he is easily overwhelmed and prefers to isolate while here on the unit. Pt states, "I get confused about what I'm feeling and then I forget I have medications. Pt was informed about prn Zyprexa as well as Vistaril which may be beneficial to help him cope when he is feeling overwhelmed. Pt states he has noticed benefit with the Zyprexa and feels less tired during the day. He states he is still waking quite early in the morning and experiencing racing thoughts making it difficult to fall asleep again. Pt denies A/V hallucinations specifically, but states, "I know that everything I hear other people on the unit are hearing too." Pt denies SI/HI and any other psychiatric concerns today. Review of Systems Psych: denies symptoms other than stated above Constitutional: denied Cardiovascular: denied GI: denied Neurologic: denied Remainder of 10 body systems also reviewed and denied other than noted above. Sleep Information Total Hours of Sleep: 7.00 Meal Information Percent of Breakfast Consumed: 100 Percent of Lunch Consumed: 100 Percent of Dinner Consumed: 100 Mental Status Exam During interview pt is: alert and oriented, cooperative Appearance: appropriately dressed, appropriately groomed Eye contact is: good Motor behavior is: steady gait & station, no abnormal motor movements Speech: normal in rate, rhythm & volume Affect: blunted Mood is: other ("good") Thought process: goal directed Thought content: delusions, ideas of reference (shared with cousin that staff was "planted here for him", "I know everyone else hears the things I hear") Suicidal thought are: denied Homicidal thoughts are: denied Hallucinations: denies auditory (reports of hearing whistles made to staff), denies visual Cognition: memory grossly intact, attention grossly intact, language grossly intact Intelligence estimated to be: average Insight: impaired Judgement: impaired Summary of Past History 12/19/[address] Naren Levine Oct-November 2017. Impressions include that he is of average intelligence, self reports of mild to moderate depression and anxiety that have been worse since a breakup with a girlfriend in 2017. ADHD not likely. Diagnoses included Major Depressive Disorder, recurrent, mild, unspecified anxiety disorder, unspecified personality disorder , and alcohol use disorder. Impression Psychosis improving, though still reporting paranoid and delusional comments to family supports. Pt has noticed improvement with olanzapine and is agreeable to continuing to titrate his HS dose. Reviewed with patient available olanzapine and hydroxyzine prn medications and recommended use as needed when confused, suspicious, or overwhelmed in order to better utilize coping skills. Pt verbalized understanding. Will continue to adjusting dose of olanzapine to target delusions and improve condition. Pt requires ongoing inpatient mental health treatment until antipsychotic medication dosing can be stabilized and patient's condition is improved adequately and he is no longer a risk for harm to self or rapid decompensation. Plan (1) Schizoaffective disorder, bipolar type 12/18/17 - Diagnosis at the time of initial hospitalization in November 2017 with bipolar type I, but due to persistence of psychotic symptoms in the absence of mood symptoms, now changed to schizoaffective disorder bipolar type. - DC risperdal in favor of a trial of Zyprexa 2.5 mg. HS increasing as tolerated. R/B/A reviewed again including now the risk for weight gain - Continue use of prn vistaril for anxiety - q 15 min checks for safety - Encourage participation in group and individual counseling - will use ODT Zyprexa in view of hx of spitting out some pills - Reality orientation - Supplemental from parents - Coordinate with OP providers. - FLP and FBS obtained 12/02/17 and WNL 12/19 - Increase Zyprexa Zydis to 5 mg. HS, continue prns' - Assist the patient with reality orientation / -Increase olanzapine to 7.5 mg nightly. Encourage group attendance and participation, and reality testing. Mood appears stable, making schizoaffective or schizophrenia more likely diagnosis due to the absence of prominent mood symptoms. -Follow-up appointment with outpatient psychiatrist Dr. Newell has been rescheduled for 01/04/2018, and care was coordinated with him on admission. 12/21 - Olanzapine increased to 10mg qHS. Encouraged prn olanzapine or hydroxyzine for confusion or delusions during the day. Will continue to titrate olanzapine as needed to target symptoms. Discharge / Aftercare Planning Primary Care Physician: Name: Leeann Davis Appointment Notes: [address], [place] [address] Psychiatrist: Name: [facility] Dr. Newell Date of Appointment: Jan 04, 2018 Time of Appointment: 2:40 p.m. Therapist: Name: Radha Penn Date of Appointment: Dec 28, 2017 Time of Appointment: 10:30 a.m. Appointment Notes: [address], [address], [place] [address] Chart Collector: Name: [facility] - Intake Date of Appointment: Dec 31, 2017 Time of Appointment: 10:00 a.m. Appointment Notes: [address], [address], [place] [address] Visit Code E&M Code: 14856 Inventory Assets Strengths: Supportive family, intelligence Needs: to continue to abstain from cannabis, learn about illness/insight Risk Factors Assessment Male: Yes : Yes /single/: Yes Higher / Fall in social status: No Health problems: No Mental Health Diagnoses: Yes Substance use disorders: Yes Previous attempt: No Previous psychiatric stay: Yes Smoker: Yes Protective Factors Assessment Catholic beliefs: No : No Responsible for young children: No Employed: No Supportive family: Yes Data Vital Signs Last 24 Hrs: Date Time Temp Pulse Resp B/P (MAP) Pulse Ox O2 Delivery O2 Flow Rate FiO2 12/21/17 06:29 36.6 52 18 120/67 56 116/71 Meds Administered Last 24 Hrs: Meds Administered (Past 24Hrs) Medications (Trade) Dose Ordered Sig/Reuben Route Start Time Stop Time Status Last Admin Dose Admin Olanzapine (Zyprexa Zydis Od Tab) 5 mg HS PO 12/19/17 22:00 12/20/17 10:50 DC 12/19/17 21:03 5 MG Olanzapine (Zyprexa Zydis Od Tab) 7.5 mg HS PO 12/20/17 22:00 12/21/17 09:12 DC 12/20/17 21:11 7.5 MG
[2017-12-21] MEDS: NICOTINE 14 MG/24 HR TDSY TD SCH (09:50)
--- NOTE | 2017-12-21 09:50 | Psych Management Progress Note ---
Psychiatry Miscellaneous Date of Service: Dec 21, 2017 Patient seen, MS assessed. Bright in interactions with copatients and slept 7 hours. He continues to represent himself as Joel Trigger during family visits and refer to staff as being "plants" to monitor him. Encouraged cooperation with care and treatment plan as outlined by allied health prescriber.
[2017-12-21] MEDS: hydrOXYzine HCL 25 MG TAB PO PRN (13:13)
[2017-12-21] MEDS: OLANZAPINE ZYDIS 10 MG ORALLY DIS. TAB PO SCH (21:17)
[2017-12-22 06:34] VITALS: BP_SYST 128; BP_SYST 135; BP_DIAS 64; BP_DIAS 68; PULSE 50; PULSE 76; TEMP 36.8
[2017-12-22] MEDS: NICOTINE 14 MG/24 HR TDSY TD SCH (08:20)
--- NOTE | 2017-12-22 09:44 | Psychiatric Progress Notes ---
Progress Note Date of Service Dec 22, 2017. Interval History 22-year-old gentleman just released from our unit 3 days ago, readmitted voluntarily with a worsening of his paranoia Chief Complaint ""I've been decent. Don't feel anxious but I realize I am" Subjective Patient was seen & assessed interval progress reviewed with Treatment Team. The patient reports today that he realizes he is anxious around people. He feels overwhelmed throughout the day and isolates himself as away to get "me time". He feels the Vistaril during the day helps with his anxiety and to connect with people. He reports that planning the day around his Meds would be helpful. The patient feels his mood is "decent". Rates mood a 6/10 today. He denies feeling depressed or down but admits that he doesn't know how he really feels. He report knowing he has improved from his initial admission a few weeks ago because his concentration is better. He states he can watch [employer] now instead of going from [employer] to [employer] videos. He states he had no attention span but now he does. He reports going to groups and making friends on the unit. He reports eating well and sleeping well on the unit but admits to having dreams and wishing he could stay in the dreams because they are telling him things. He states he could not identify who "they" were or what the content of the dreams or messages are. He also reports continued visual hallucinations of "seeing shadows" ,"flashes of one dog" and "flashes of a cell phone". He initially denied auditory hallucinations but admitted later that he hears "people laughing" "clicks and banging" and feels this is all part of his therapy. He also reports hearing "wind in the stairwell". He also admits to feeling "a little paranoid" saying that "people, doctors are watching him but he doesn't mind". He denies SI plan or intent. He hesitated when asked about HI , plan or intent and quickly commented that he had no idea why he hesitated and that it bothered him that he did. He then clarified that he denies HI, plan or intent. He reports enjoying the visit with his Aunt and his cousin but that the visits with his mom and dad can be anxious for him. He states, "I have misdirected anger with my mother,she wears the pants in the family.My dad is passive and now I can see why". He is hoping to get out of the [facility] and live in his grandfathers basement in [facility] [place] [facility] as it's convenient and the best choice for him. He reports wanting to live at home but he doesn't get along with his parents and when he tried this it ended up in a fight. Review of Systems Psych: denies symptoms other than stated above Constitutional: denied Cardiovascular: denied GI: denied Neurologic: denied Remainder of 10 body systems also reviewed and denied other than noted above. Sleep Information Total Hours of Sleep: 7.00 Meal Information Percent of Breakfast Consumed: 100 Percent of Lunch Consumed: 100 Percent of Dinner Consumed: 100 Mental Status Exam During interview pt is: alert and oriented, cooperative Appearance: appropriately dressed, appropriately groomed Eye contact is: good Motor behavior is: steady gait & station, no abnormal motor movements Speech: normal in rate, rhythm & volume Affect: blunted Mood is: anxious, other ("good") Thought process: goal directed Thought content: paranoid, delusions, ideas of reference (shared with cousin that staff was "planted here for him", "I know everyone else hears the things I hear") Suicidal thought are: denied Homicidal thoughts are: denied Hallucinations: auditory (He reports "people laughing, banging, clicking. Part of his therapy plan"), visual ("flashes of one dog, a cell phone, shadows") Cognition: memory grossly intact, attention grossly intact, language grossly intact Intelligence estimated to be: average Insight: impaired Judgement: impaired Summary of Past History 12/19/[address] Naren Levine Oct-November 2017. Impressions include that he is of average intelligence, self reports of mild to moderate depression and anxiety that have been worse since a breakup with a girlfriend in 2017. ADHD not likely. Diagnoses included Major Depressive Disorder, recurrent, mild, unspecified anxiety disorder, unspecified personality disorder , and alcohol use disorder. Impression Psychosis is slowly improving but he continues with paranoia, auditory and visual hallucinations. He also reported paranoid and delusional comments to family supports recently. Pt has noticed improvement with olanzapine and is agreeable to continuing to titrate his HS dose. He feels the Vistaril has been most helpful as he gets overwhelmed and anxious. Reviewed with patient meds availabel to him: olanzapine and hydroxyzine prn medications. He was advised to use them as needed when confused, suspicious, or overwhelmed in order to better utilize coping skills. Pt verbalized understanding. Will continue to adjusting dose of olanzapine to target delusions and improve condition. Pt requires ongoing inpatient mental health treatment until antipsychotic medication dosing can be stabilized and patient's condition is improved adequately and he is no longer a risk for harm to self or rapid decompensation. Plan (1) Schizoaffective disorder, bipolar type 12/18/17 - Diagnosis at the time of initial hospitalization in November 2017 with bipolar type I, but due to persistence of psychotic symptoms in the absence of mood symptoms, now changed to schizoaffective disorder bipolar type. - DC risperdal in favor of a trial of Zyprexa 2.5 mg. HS increasing as tolerated. R/B/A reviewed again including now the risk for weight gain - Continue use of prn vistaril for anxiety - q 15 min checks for safety - Encourage participation in group and individual counseling - will use ODT Zyprexa in view of hx of spitting out some pills - Reality orientation - Supplemental from parents - Coordinate with OP providers. - FLP and FBS obtained 12/02/17 and WNL 12/19 - Increase Zyprexa Zydis to 5 mg. HS, continue prns' - Assist the patient with reality orientation 12/20 -Increase olanzapine to 7.5 mg nightly. Encourage group attendance and participation, and reality testing. Mood appears stable, making schizoaffective or schizophrenia more likely diagnosis due to the absence of prominent mood symptoms. -Follow-up appointment with outpatient psychiatrist Dr. Newell has been rescheduled for 01/04/2018, and care was coordinated with him on admission. 12/21 - Olanzapine increased to 10mg qHS. Encouraged prn olanzapine or hydroxyzine for confusion or delusions during the day. Will continue to titrate olanzapine as needed to target symptoms. 12/22 - The patient is tolerating his Olanzapine increase to 10 mg at HS without side effect. Olanzapine will be titrated as needed to target his symptoms. - Continue prn use of Olanzapine and Vistaril as they seem to help his anxiety. - Encouraged him to continue participation in group therapy, family meetings. Discharge / Aftercare Planning Primary Care Physician: Name: Leeann Davis Appointment Notes: [address], [place] [address] Psychiatrist: Name: Shawn Newell Date of Appointment: Jan 04, 2018 Time of Appointment: 2:40 p.m. Therapist: Name: Radha Penn Date of Appointment: Dec 28, 2017 Time of Appointment: 10:30 a.m. 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 Appointment Notes: [address], [address], [place] [address] Visit Code E&M Code: 24513 Inventory Assets Strengths: Supportive family, intelligence Needs: to continue to abstain from cannabis, learn about illness/insight Risk Factors Assessment Male: Yes : Yes /single/: Yes Higher / Fall in social status: No Health problems: No Mental Health Diagnoses: Yes Substance use disorders: Yes Previous attempt: No Previous psychiatric stay: Yes Smoker: Yes Protective Factors Assessment Druze beliefs: No : No Responsible for young children: No Employed: No Supportive family: Yes Data Vital Signs Last 24 Hrs: Date Time Temp Pulse Resp B/P (MAP) Pulse Ox O2 Delivery O2 Flow Rate FiO2 12/22/17 06:34 36.8 50 16 128/68 76 135/64 Meds Administered Last 24 Hrs: Meds Administered (Past 24Hrs) Medications (Trade) Dose Ordered Sig/Reuben Route Start Time Stop Time Status Last Admin Dose Admin Olanzapine (Zyprexa Zydis Od Tab) 7.5 mg HS PO 12/20/17 22:00 12/21/17 09:12 DC 12/20/17 21:11 7.5 MG Olanzapine (Zyprexa Zydis Od Tab) 10 mg HS PO 12/21/17 22:00 01/17/18 21:59 12/21/17 21:17 10 MG
[2017-12-22] MEDS: OLANZAPINE ZYDIS 5 MG ORALLY DIS. TAB PO PRN (13:29)
[2017-12-22] MEDS: OLANZAPINE ZYDIS 10 MG ORALLY DIS. TAB PO SCH (22:14)
[2017-12-23 06:29] VITALS: BP_SYST 113; BP_SYST 117; BP_DIAS 69; BP_DIAS 73; PULSE 48; PULSE 57; TEMP 36.8
[2017-12-23] MEDS: OLANZAPINE ZYDIS 5 MG ORALLY DIS. TAB PO PRN ×2 (08:39→08:40)
[2017-12-23] MEDS: NICOTINE 14 MG/24 HR TDSY TD SCH (08:40)
--- NOTE | 2017-12-23 11:00 | Psych Management Progress Note ---
Psychiatry Miscellaneous Date of Service: Dec 23, 2017. Patient seen, MS assessed. Rates mood as 6/10 and "airy". More insight into his condition. Clearly calmer/less intrussive, fewer delusions expressed since Zyprexa increase. Encouraged cooperation with care and treatment plan as outlined by allied health prescriber.
--- NOTE | 2017-12-23 11:59 | Psychiatric Progress Notes ---
Progress Note Date of Service Dec 23, 2017. Interval History 22-year-old gentleman just released from our unit 3 days ago, readmitted voluntarily with a worsening of his paranoia Chief Complaint I am feeling really good ". Subjective Patient was seen & assessed interval progress reviewed with Treatment Team. The patient was calm and cooperative during the initial evaluation but became more nervous and anxious as he began to talk about his mom. His thoughts became more circumferential the more he spoke. He reports his thoughts are difficult to process especially when he is feeling pressured but denies feeling pressured by this automatic typewriter inspector. In general he feels school work affected him. He feels that he can only focus on one thing at time and isolated himself during school to do so. He states he is often lost" but doesn't really want people to know. He also reports that when dealing with his mom she comes at him and he reports he cannot think as fast. He discusses writing a letter and maybe giving it to her at their family meeting but isn't sure if it is a good idea. He apologizes for his moms behavior stating "she had it rough, I get it". He feels his behavior can be an issue but only in context of reacting to others or tasks. He also admits to getting overwhelmed on the unit when other patients talk to him. He is trying to "detach" himself from the patients because he will not see them again. He is not sure how things are going to go for him when released. he reached out to his grandfather today. He reports eating and sleeping well. Groups can overwhelm him. He feels going to his room helps him. He denies feeling depressed, down or hopeless but then states rather quickly "i guess I could be it's a reality". He denies A/V hallucinations today but discusses a "lucid dream" state in which he wakes and isn't sure if he is dreaming or not. The dream he relates is about the patient suffocating or drowning in a pool at [facility] where there are chocolate chips at the bottom of the pool. He feels this dream deals with his mom yelling at him as a kid not to eat chocolate chips. He finds comfort in that he could figure out his dream. He denies feeling paranoid but says "I'm detached from people here". He denies SI/HI plan or intent. Review of Systems Psych: denies symptoms other than stated above Constitutional: denied Cardiovascular: denied GI: denied Neurologic: denied Remainder of 10 body systems also reviewed and denied other than noted above. Sleep Information Total Hours of Sleep: 6.00 Meal Information Percent of Breakfast Consumed: 100 Percent of Lunch Consumed: 100 Percent of Dinner Consumed: 100 Mental Status Exam During interview pt is: alert and oriented, cooperative Appearance: appropriately dressed, appropriately groomed Eye contact is: good Motor behavior is: steady gait & station, no abnormal motor movements Speech: normal in rate, rhythm & volume Affect: blunted Mood is: anxious, other ("good") Thought process: goal directed, circumstantial Thought content: paranoid, delusions, ideas of reference (shared with cousin that staff was "planted here for him", "I know everyone else hears the things I hear") Suicidal thought are: denied Homicidal thoughts are: denied Hallucinations: auditory (He reports "people laughing, banging, clicking. Part of his therapy plan"), visual ("flashes of one dog, a cell phone, shadows") Cognition: memory grossly intact, attention grossly intact, language grossly intact Intelligence estimated to be: average Insight: impaired Judgement: impaired Summary of Past History 12/19/[address] Naren Levine Oct-November 2017. Impressions include that he is of average intelligence, self reports of mild to moderate depression and anxiety that have been worse since a breakup with a girlfriend in 2017. ADHD not likely. Diagnoses included Major Depressive Disorder, recurrent, mild, unspecified anxiety disorder, unspecified personality disorder , and alcohol use disorder. Impression The patient appears today too be more circumstantial -- nurses relay he seemed overwhelmed when another patient tried to talk with him. He needed a prn Zyprexa to help calm him down. Overall and in spite of this presentation today his psychosis is slowly improving but I think he would benefit from increases in his Zyprexa. Reviewed with patient his meds available to him: olanzapine and hydroxyzine prn medications. He was advised to use them as needed when confused , suspicious, or overwhelmed in order to better utilize coping skills. Pt verbalized understanding. Pt continues to require ongoing inpatient mental health treatment until antipsychotic medication dosing can be stabilized and patient's condition is improved adequately and he is no longer a risk for harm to self or rapid decompensation. Plan (1) Schizoaffective disorder, bipolar type 12/18/17 - Diagnosis at the time of initial hospitalization in November 2017 with bipolar type I, but due to persistence of psychotic symptoms in the absence of mood symptoms, now changed to schizoaffective disorder bipolar type. - DC risperdal in favor of a trial of Zyprexa 2.5 mg. HS increasing as tolerated. R/B/A reviewed again including now the risk for weight gain - Continue use of prn vistaril for anxiety - q 15 min checks for safety - Encourage participation in group and individual counseling - will use ODT Zyprexa in view of hx of spitting out some pills - Reality orientation - Supplemental from parents - Coordinate with OP providers. - FLP and FBS obtained 12/02/17 and WNL 12/19 - Increase Zyprexa Zydis to 5 mg. HS, continue prns' - Assist the patient with reality orientation 12/20 -Increase olanzapine to 7.5 mg nightly. Encourage group attendance and participation, and reality testing. Mood appears stable, making schizoaffective or schizophrenia more likely diagnosis due to the absence of prominent mood symptoms. -Follow-up appointment with outpatient psychiatrist Dr. Newell has been rescheduled for 01/04/2018, and care was coordinated with him on admission. 12/21 - Olanzapine increased to 10mg qHS. Encouraged prn olanzapine or hydroxyzine for confusion or delusions during the day. Will continue to titrate olanzapine as needed to target symptoms. 12/22 - The patient is tolerating his Olanzapine increase to 10 mg at HS without side effect. Olanzapine will be titrated as needed to target his symptoms. - Continue prn use of Olanzapine and Vistaril as they seem to help his anxiety. - Encouraged him to continue participation in group therapy, family meetings. 12/23 - increase Zyprexa to 15 mg at HS and increase prn dose to 5 mg q 4 hrs. Check weight today. Discharge / Aftercare Planning Primary Care Physician: Name: Leeann - Dr. Davis Appointment Notes: [address], [place], [place] [address] Psychiatrist: Name: [facility] - Dr. Newell Date of Appointment: Jan 04, 2018 Time of Appointment: 2:40 p.m. Therapist: Name: Radha Penn Date of Appointment: Dec 28, 2017 Time of Appointment: 10:30 a.m. Appointment Notes: [address], [address], [place] [address] Slasher Machine Operator: Name: [facility] - Intake Date of Appointment: Dec 31, 2017 Time of Appointment: 10:00 a.m. Appointment Notes: [address], [address], [place] [address] Visit Code E&M Code: 11944 Inventory Assets Strengths: Supportive family, intelligence Needs: to continue to abstain from cannabis, learn about illness/insight Risk Factors Assessment Male: Yes : Yes /single/: Yes Higher / Fall in social status: No Access to guns: No Health problems: No Mental Health Diagnoses: Yes Substance use disorders: Yes Previous attempt: No Previous psychiatric stay: Yes Smoker: Yes Protective Factors Assessment Restorationism beliefs: No : No Responsible for young children: No Employed: No Supportive family: Yes Data Vital Signs Last 24 Hrs: Date Time Temp Pulse Resp B/P (MAP) Pulse Ox O2 Delivery O2 Flow Rate FiO2 12/23/17 06:29 36.8 48 16 113/69 57 117/73 Meds Administered Last 24 Hrs: Meds Administered (Past 24Hrs) Medications (Trade) Dose Ordered Sig/Reuben Route Start Time Stop Time Status Last Admin Dose Admin Olanzapine (Zyprexa Zydis Od Tab) 10 mg HS PO 12/21/17 22:00 01/17/18 21:59 12/22/17 22:14 10 MG
[2017-12-23] MEDS ORDERED: OLANZAPINE ZYDIS 5 MG ORALLY DIS. TAB PO PRN (12:15)
[2017-12-23] MEDS: OLANZAPINE ZYDIS 10 MG ORALLY DIS. TAB PO SCH (20:22)
[2017-12-24 07:00] VITALS: BP_SYST 123; BP_SYST 125; BP_DIAS 69; BP_DIAS 74; PULSE 59; PULSE 90; TEMP 36.4
[2017-12-24] MEDS: NICOTINE 14 MG/24 HR TDSY TD SCH (07:43)
--- NOTE | 2017-12-24 09:50 | Psychiatric Progress Notes ---
Progress Note Date of Service Dec 24, 2017. Interval History 22-year-old gentleman just released from our unit 3 days ago, readmitted voluntarily with a worsening of his paranoia Chief Complaint "I think I get it". Subjective Patient was seen & assessed interval progress reviewed with Treatment Team. Staff report the patient was upset after multiple peers were discharged, stating he was frustrated with being in the hospital, and has been easily overstimulated. He had to be excused from group yesterday and received an as needed dose of olanzapine. He questioned staff about whether the medication was "real." He processed his emotions after a visit with his mother yesterday, stating that he felt bad about anger that he had toward his family, and felt upset that his mother does not listen to him. He was tearful, restless, and had difficulty focusing. He started writing a letter to his mother to express his feelings. This morning, he had to be redirected as he wanted to race around the unit in a wheelchair. On my assessment, the patient states he is frustrated with being in the hospital , is bored, and says he wants to be transferred to the [facility] so that he can "meet new people, try something new, I think it would be good for me." He says his goal of treatment is "to really understand technology, it's just advanced so quickly, people can't keep up with it...technology allowed me to isolate myself, I didn't have to go to office hours, could just look up stuff online, it was just me and my computer, me and my phone...my phone and my laptop were the reason I ended up in here, I was search Joel Wheatley and it showed this hussein with jet black hair, it didn't force me to do some crazy things, should've put some thought behind, it shouldn't just be a knee-jerk crazy reaction...I opened a snapchat, and thought the snapchat was going to cause my grandfather to , it's frustrating for a kid like me to see how he's suffering, see the situation and not be able to do anything, and it's easier than ever to be detached these days..." He was asked several times to explain his understanding of treatment recommendations and goals while he is here, and answers with information about technology, talking about "sticking with one thing, TV or reading, not just switching from one thing to another." Mood is "frustrated, because I just wanna ignore people, think they're all just jasson here, they're not making fun of me, but they all have their own thing going on, but I'm just in the middle of it, I never asked to be in the center...I never quite know what's going on, new people come in and I want to help them, but it's annoying because they don't think I need their help, I think they're just faking it, they're not real, not real people, they're just faking. I want to meet real people who go through real struggles. I just want something more." Rates his mood "between a 6 and an 8, but a little isolated lately." He denies SI and HI, but reports hallucinations, "it's like dreams coming alive," stating he has vivid experiences when he "sort of both asleep and awake, my projecting hallucinations of things in my room, super vivid imagination." Admits the line between what's real and isn't is hard for him to determine at times. During the assessment he insisted on sitting in a chair at a computer desk in the interview room, was trying to log onto the computer, and pushing buttons on the copier. He visited with his aunt and cousin and says it went well, and says his visit with his mother and sister was "tense, just didn't feel like performing for them, just wanted to be me." Sleep Information Total Hours of Sleep: 10.00 Meal Information Percent of Breakfast Consumed: 100 Percent of Lunch Consumed: 100 Percent of Dinner Consumed: 100 Mental Status Exam During interview pt is: alert and oriented, cooperative, other (Required frequent redirection for behavior, playing with the computer and copier in the interview room.) Appearance: appropriately dressed, appropriately groomed Eye contact is: good Motor behavior is: steady gait & station, no abnormal motor movements Speech: normal in rate, rhythm & volume Affect: euthymic Mood is: other ("Frustrated, kind of bored") Thought process: goal directed, circumstantial, looseness of associations Thought content: paranoid, delusions, ideas of reference Suicidal thought are: denied Homicidal thoughts are: denied Hallucinations: auditory, visual Cognition: memory grossly intact, attention grossly intact, language grossly intact Intelligence estimated to be: average Insight: impaired Judgement: impaired Summary of Past History 12/19/[address] Naren Levine Oct-November 2017. Impressions include that he is of average intelligence, self reports of mild to moderate depression and anxiety that have been worse since a breakup with a girlfriend in 2017. ADHD not likely. Diagnoses included Major Depressive Disorder, recurrent, mild, unspecified anxiety disorder, unspecified personality disorder , and alcohol use disorder. Impression Patient continues to endorse psychotic symptoms, is requiring prn Zyprexa and his scheduled doses being titrated upwards as well. He continues to be easily overwhelmed, was upset after a family visit yesterday, but was able to process with staff. His psychosis is slowly improving, but he has limited insight and complains of being bored in the hospital. The patient continues to require ongoing inpatient mental health treatment as his antipsychotic medication is being adjusted, he continues to have psychotic symptoms, struggles with reality testing, and remains at imminent risk if discharged prematurely. He has not yet been able to tolerate a family meeting, and family support continued hospitalization as he decompensated rapidly after his last discharge. Plan (1) Schizoaffective disorder, bipolar type 12/18/17 - Diagnosis at the time of initial hospitalization in November 2017 with bipolar type I, but due to persistence of psychotic symptoms in the absence of mood symptoms, now changed to schizoaffective disorder bipolar type. - DC risperdal in favor of a trial of Zyprexa 2.5 mg. HS increasing as tolerated. R/B/A reviewed again including now the risk for weight gain - Continue use of prn vistaril for anxiety - q 15 min checks for safety - Encourage participation in group and individual counseling - will use ODT Zyprexa in view of hx of spitting out some pills - Reality orientation - Supplemental from parents - Coordinate with OP providers. - FLP and FBS obtained 12/02/17 and WNL 12/19 - Increase Zyprexa Zydis to 5 mg. HS, continue prns' - Assist the patient with reality orientation 4/5 -Increase olanzapine to 7.5 mg nightly. Encourage group attendance and participation, and reality testing. Mood appears stable, making schizoaffective or schizophrenia more likely diagnosis due to the absence of prominent mood symptoms. -Follow-up appointment with outpatient psychiatrist Dr. Newell has been rescheduled for 01/04/2018, and care was coordinated with him on admission. 12/21 - Olanzapine increased to 10mg qHS. Encouraged prn olanzapine or hydroxyzine for confusion or delusions during the day. Will continue to titrate olanzapine as needed to target symptoms. 12/22 - The patient is tolerating his Olanzapine increase to 10 mg at HS without side effect. Olanzapine will be titrated as needed to target his symptoms. - Continue prn use of Olanzapine and Vistaril as they seem to help his anxiety. - Encouraged him to continue participation in group therapy, family meetings. 12/23 - increase Zyprexa to 15 mg at HS and increase prn dose to 5 mg q 4 hrs. Check weight today. 12/24 -Continue olanzapine titration. Patient is requesting a referral to the [facility], which will be made. He has not yet been able to tolerate a family meeting, but we will contact the base service unit to determine if the social work case manager can be assigned and meet with him here (he was referred there during his last hospitalization, but has still not been assigned a social work case manager or met with anyone). He would benefit from increased outpatient supports, such as psych rehab or clubhouse, partial hospitalization, or a CRR. Discharge / Aftercare Planning Primary Care Physician: Name: Leeann Davis Appointment Notes: [address], [place] [address] Psychiatrist: Name: [facility] - Dr. Newell Date of Appointment: Jan 04, 2018 Time of Appointment: 2:40 p.m. Therapist: Name: Radha Penn Date of Appointment: Dec 28, 2017 Time of Appointment: 10:30 a.m. Appointment Notes: [address] [place] [address], [address], [place] [address] Manager Android: Name: [facility] - Intake Date of Appointment: Dec 31, 2017 Time of Appointment: 10:00 a.m. Appointment Notes: [address] [facility], [address], [place] [address] Visit Code E&M Code: 40980 Inventory Assets Strengths: Supportive family, intelligence Needs: to continue to abstain from cannabis, learn about illness/insight Risk Factors Assessment Male: Yes : Yes /single/: Yes Higher / Fall in social status: No Access to guns: No Health problems: No Mental Health Diagnoses: Yes Substance use disorders: Yes Previous attempt: No Previous psychiatric stay: Yes Smoker: Yes Protective Factors Assessment Islam beliefs: No : No Responsible for young children: No Employed: No Stable relationships: No Supportive family: Yes Data Vital Signs Last 24 Hrs: Date Time Temp Pulse Resp B/P (MAP) Pulse Ox O2 Delivery O2 Flow Rate FiO2 12/24/17 07:00 36.4 59 16 123/69 90 125/74 Meds Administered Last 24 Hrs: Meds Administered (Past 24Hrs) Medications (Trade) Dose Ordered Sig/Reuben Route Start Time Stop Time Status Last Admin Dose Admin Olanzapine (Zyprexa Zydis Od Tab) 15 mg HS PO 12/23/17 22:00 01/17/18 21:59 12/23/17 20:22 15 MG Olanzapine (Zyprexa Zydis Od Tab) 5 mg Q4H PRN PO 12/23/17 12:15 01/17/18 11:44 12/23/17 13:03 5 MG
[2017-12-24] MEDS: hydrOXYzine HCL 25 MG TAB PO PRN ×2 (10:38→16:43)
[2017-12-24] MEDS ORDERED: ZYPODT5 PO (15:32)
[2017-12-24] MEDS ORDERED: [UNRECOGNIZED DRUG - CODE] PO (15:32)
[2017-12-24] MEDS ORDERED: NICO14DI5 TD (15:32)
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
--- NOTE | 2017-12-24 17:32 | Psych Management Progress Note ---
Psychiatry Miscellaneous Date of Service: Dec 24, 2017. Patient being transferred to [facility] at his request. He asked nursing staff and this physician to be transferred to the [facility] today, was referred and accepted. Reviewed with him that he would be going on a 201 voluntary commitment , would be developing a treatment plan with his treatment team there, and he agreed. Reviewed that, as with his admission to [facility], he would give written notice if he wanted to leave treatment prior to discharge, and that the treatment team would have 72 hours to determine safety and appropriateness for discharge. He expressed understanding.
[2017-12-24 17:49] VITALS: BP 125/74; PULSE 90; TEMP 36.4; O2SAT 97
[2017-12-24] MEDS: OLANZAPINE ZYDIS 10 MG ORALLY DIS. TAB PO SCH (21:09)
== END 2017-12-24 21:15 | DRG 885 ==
LOC: C.EDB 22:35 → C.MHU 12-18 02:06
PROVIDERS: ADMIT Student in an Organized Health Care Education/Training Program; ATTEND Psychiatry & Neurology Psychiatry
DX: F25.0 Schizoaffective disorder, bipolar type (principal); F41.9 Anxiety disorder, unspecified; F12.10 Cannabis abuse, uncomplicated; F17.200 Nicotine dependence, unspecified, uncomplicated; Z79.899 Other long term (current) drug therapy; Z83.3 Family history of diabetes mellitus; Z82.49 Family history of ischemic heart disease and other diseases of the circulatory system; Z84.1 Family history of disorders of kidney and ureter; Z84.89 Family history of other specified conditions